=== PATIENT | female | born 1940 | race Caucasian/White ===

== ENCOUNTER → 2016-06-26 | Outpatient (CLI) | payer MEDICARE, OTHER ==
[2016-06-26 12:19] LABS: ALBUMIN 3.7 g/dL (3.5-5.0); BILIRUBIN,TOTAL 0.9 mg/dL (0.2-1.3); MAGNESIUM 1.9 mg/dL (1.6-2.3); TOTAL PROTEIN 6.7 g/dL (6.3-8.2)
== END ==
LOC: OD 11:15
PROVIDERS: ATTEND Internal Medicine Cardiovascular Disease
DX: Z79.899 Other long term (current) drug therapy (principal)
CPT/HCPCS: 36415; 80076; 83735; 84443

== ENCOUNTER → 2016-06-26 | Outpatient (CLI) | payer MEDICARE, OTHER ==
--- NOTE | 2016-06-26 19:45 | XCELERA REPORT ---
[address] [address] Transthoracic Echocardiogram Report Name: WOODROW HAYS Age: 76 yrs Gender: Female : 1940 Patient Status: Outpatient Patient Location: Study Date: 06/26/2016 01:59 PM Height: 65 in Weight: 132 lb BSA: 1.7 m2 Reason For Study: HTN Ordering Physician: RAMÍREZ IRELAND Performed By: Monique Post Interpretation Summary Mild calcific with peak gradient 17 mm Hg with mild AR with no LV enlargement. MAC is moderate, no MS, no MVP, mild MR and mild LA enlargement. LV is hypokinetic in inferoseptal wall, no LVH and LVEF 62% with no LV diastolic dysfunction, no other wall motion abn. RH is normal LVEF is 39 mm Hg , mild pulm hypertension. MMode/2D Measurements \T\ Calculations RVDd: 2.5 cm LVIDd: 5.2 cm FS: 32.4 % Ao root diam: IVSd: 0.88 cm LVIDs: 3.5 cm EDV(Teich): 129.6 ml 3.0 cm LVPWd: 0.91 cm ESV(Teich): 51.5 ml Ao root area: EF(Teich): 60.3 % 7.2 cm2 LA dimension: 3.6 cm LVOT diam: LVLd ap4: 7.9 cm SV(MOD-sp4): 69.0 ml 2.2 cm EDV(MOD-sp4): LA A2Cs: 30.8 cm2 LVOT area: 112.0 ml LVLs ap4: 6.4 cm 3.7 cm2 ESV(MOD-sp4): 43.0 ml EF(MOD-sp4): 61.6 % LA A4Cs: LA length: 6.8 cm LA Vol Index (BP): LA Volume: 89.2 ml 23.3 cm2 53.8 ml/m2 Doppler Measurements \T\ Calculations MV E max karla: MV P1/2t max karla: Ao V2 max: AI max karla: 103.0 cm/sec 102.6 cm/sec 204.3 cm/sec 361.1 cm/sec MV A max karla: MV P1/2t: 53.2 msec Ao max PG: AI max P.1 cm/sec MVA(P1/2t): 4.1 cm2 16.7 mmHg 52.1 mmHg MV E/A: 1.2 MV dec slope: ABIOLA(V,D): 2.0 cm2AI dec slope: 182.6 cm/sec2 564.8 cm/sec2 AI P1/2t: 579.1 msec LV V1 max PG: PA V2 max: TR max karla: 4.6 mmHg 74.4 cm/sec 289.9 cm/sec LV V1 max: PA max P.2 mmHg TR max P.6 cm/sec 33.6 mmHg Left Ventricle The left ventricle is normal in size. There is normal left ventricular wall thickness. The left ventricular ejection fraction is normal. LV EF is 62%. Doppler measurements suggest normal left ventricular diastolic function. There is inferoseptal wall moderate hypokinesis. There is no thrombus. Right Ventricle The right ventricle is normal size. Atria The right atrium is normal in size. The left atrium is mildly dilated. There is no Doppler evidence for an interatrial shunt. Mitral Valve There is mild to moderate mitral annular calcification. There is no evidence of mitral valve prolapse. There is no mitral valve stenosis. There is a mild amount of mitral regurgitation. Aortic Valve The aortic valve opens well. The aortic valve is sclerotic and shows some degree of functional abnormality. The aortic valve is trileaflet. There is no aortic valvular vegetation. There is mild aortic stenosis. There is a peak gradient of 17 mm of Hg. There is an eccentric jet of aortic insufficiency directed against the anterior mitral leaflet. There is a mild amount of aortic regurgitation. PHT 577 ms. Tricuspid Valve The tricuspid is normal in structure and function. There is no tricuspid valve prolapse. There is no tricuspid stenosis. There is a moderate amount of tricuspid regurgitation. Right ventricular systolic pressure is estimated to be elevated at 30-40mmHg. Pulmonic Valve The pulmonic valve is not well visualized. There is no pulmonic valvular regurgitation. Great Vessels The aortic root is normal size. Effusions There is no pericardial effusion. I WMSI = 1.19 % Normal = 81 Segments Size X - Cannot 1 - Normal 2 - 3 - Akinetic4 - 1-2 small Interpret Hypokinetic Dyskinetic 3-5 moderate 5 - 6-14 large Aneurysmal 15-16 diffuse : RAMÍREZ IRELAND > Ramírez [place]
== END ==
LOC: SP 12:37
PROVIDERS: ATTEND Internal Medicine Cardiovascular Disease
DX: R94.31 Abnormal electrocardiogram [ECG] [EKG] (principal)
CPT/HCPCS: 93306

== ENCOUNTER 2016-07-23 16:11 | Emergency (ER) | payer MEDICARE, OTHER ==
[2016-07-23] MEDS ORDERED: PREDNISONE 20 MG TABLET PO ONE (16:20)
--- NOTE | 2016-07-23 16:21 | ER Document Report ---
ED Medical Screen (RME) - General Stated Complaint: FLU LIKE SYMPTOMS Notes: Patient presents to the emergency department sent over by her primary care provider for febrile illness shortness of breath pulse ox between 90 and 94%. Had a breathing tx pto, 1 gm rocephin. Decreased breath sounds right side TRAVEL OUTSIDE OF THE [place] IN LAST 30 DAYS: No - Related Data Allergies/Adverse Reactions: No Known Allergies Allergy (Verified 07/23/16 16:18) Past Medical History - Past Medical History Cardiac Medical History: Reports: Hx Coronary Artery Disease, Hx Heart Attack, Hx Hypercholesterolemia, Hx Hypertension Pulmonary Medical History: Denies: Hx Asthma, Hx Bronchitis, Hx COPD, Hx Pneumonia Neurological Medical History: Denies: Hx Cerebrovascular Accident, Hx Seizures Endocrine Medical History: Reports: Hx Diabetes Mellitus Type 2 Renal/ Medical History: Reports: Hx Hemodialysis, Hx Renal Insufficiency Musculoskeltal Medical History: Reports Hx Arthritis - GENERALIZED Past Surgical History: Reports: Hx Abdominal Surgery - infection bowel/ reversed colostomy-2004, Hx Bowel Surgery - colon ruptured-2002, Hx Cardiac Catheterization - 1992, Hx Cardiac Surgery - collapsed artery-1992, Hx Cholecystectomy, Hx Gynecologic Surgery, Hx Hysterectomy, Hx Kidney (Renal Surgery) - cystectomy-2002, Hx Orthopedic Surgery - total left hip-2000, Hx Vascular Surgery - Immunizations Hx Diphtheria, Pertussis, Tetanus Vaccination: Yes Physical Exam - Vital signs Vitals: Temp Pulse Resp BP Pulse Ox 99.4 F 72 18 131/42 H 94 07/23/16 16:16 07/23/16 16:16 07/23/16 16:16 07/23/16 16:16 07/23/16 16:16 Course - Vital Signs Vital signs: Temp Pulse Resp BP Pulse Ox 99.4 F 72 18 131/42 H 94 07/23/16 16:16 07/23/16 16:16 07/23/16 16:16 07/23/16 16:16 07/23/16 16:16
[2016-07-23 16:35] LABS: ABSOLUTE LYMPHOCYTES (AUTO) 0.5 10^3/uL (0.5-4.7); ABSOLUTE MONOCYTES (AUTO) 0.6 10^3/uL (0.1-1.4); ABSOLUTE NEUT (AUTO) 2.8 10^3/uL (1.7-8.2); BASOPHILS % (AUTO) 1.2 % (0-2); EOSINOPHILS % (AUTO) 0.3 % (0-6); HEMATOCRIT 28.7 % (36.0-47.0); HEMOGLOBIN 9.6 g/dL (12.0-15.5); HGB HCT DIFFERENCE 0.1; LYMPHOCYTES % (AUTO) 13.5 % (13-45); MEAN CORPUSCULAR HEMOGLOBIN 33.4 pg (27.0-33.4); MEAN CORPUSCULAR HGB CONC 33.6 g/dL (32.0-36.0); MEAN CORPUSCULAR VOLUME 100 fl (80-97); RED BLOOD COUNT 2.88 10^6/uL (3.72-5.28); RED CELL DISTRIBUTION WIDTH 14.6 % (11.5-14.0)
[2016-07-23 16:52] LABS: ALANINE AMINOTRANSFERASE 24 U/L (9-52); ALBUMIN 3.7 g/dL (3.5-5.0); ALKALINE PHOSPHATASE 85 U/L (38-126); ANION GAP 13 (5-19); ASPARTATE AMINO TRANSFERASE 41 U/L (14-36); BILIRUBIN,DIRECT 0.7 mg/dL (0.0-0.4); BILIRUBIN,TOTAL 0.8 mg/dL (0.2-1.3); BLOOD UREA NITROGEN 12 mg/dL (7-20); CALCIUM 8.6 mg/dL (8.4-10.2); CARBON DIOXIDE 29 mmol/L (22-30); CHLORIDE 98 mmol/L (98-107); CREATININE RESULT 2.36 mg/dL (0.52-1.25); GLUCOSE 85 mg/dL (75-110); POTASSIUM 3.1 mmol/L (3.6-5.0); SODIUM 139.5 mmol/L (137-145); TOTAL PROTEIN 6.4 g/dL (6.3-8.2)
--- NOTE | 2016-07-23 19:34 | ER Document Report ---
ED General - General Chief Complaint: Breathing Difficulty Stated Complaint: FLU LIKE SYMPTOMS Notes: Patient is a 76-year-old female who presents from her doctor's office with concerns of fever, cough, and mild hypoxemia. Patient did receive albuterol nebulizers prior to arrival with no significant change in her symptoms. At time of my assessment patient states that she feels "fine" and denies any complaints at this point beyond cough. States she does not feel significantly short of breath. Denies any chest pain. She has not had a recorded fever greater than 100.4F at home. States that she's had similar symptoms in the past with bronchitis and pneumonia. She is unsure if she's had sick contacts. Nothing improves or worsens her symptoms. TRAVEL OUTSIDE OF THE [place] IN LAST 30 DAYS: No - Related Data Allergies/Adverse Reactions: No Known Allergies Allergy (Verified 07/23/16 16:18) Past Medical History - General Information source: Patient - Social History Smoking Status: Never Smoker Chew tobacco use (# tins/day): No Frequency of alcohol use: None Drug Abuse: None Lives with: Family Family History: Reviewed & Not Pertinent Patient has suicidal ideation: No Patient has homicidal ideation: No - Past Medical History Cardiac Medical History: Reports: Hx Coronary Artery Disease, Hx Heart Attack, Hx Hypercholesterolemia, Hx Hypertension Pulmonary Medical History: Denies: Hx Asthma, Hx Bronchitis, Hx COPD, Hx Pneumonia Neurological Medical History: Denies: Hx Cerebrovascular Accident, Hx Seizures Endocrine Medical History: Reports: Hx Diabetes Mellitus Type 2 Renal/ Medical History: Reports: Hx Hemodialysis, Hx Renal Insufficiency. Denies: Hx Peritoneal Dialysis Musculoskeltal Medical History: Reports Hx Arthritis - GENERALIZED Past Surgical History: Reports: Hx Abdominal Surgery - infection bowel/ reversed colostomy-2004, Hx Bowel Surgery - colon ruptured-2002, Hx Cardiac Catheterization - 1992, Hx Cardiac Surgery - collapsed artery-1992, Hx Cholecystectomy, Hx Gynecologic Surgery, Hx Hysterectomy, Hx Kidney (Renal Surgery) - cystectomy-2002, Hx Orthopedic Surgery - total left hip-2000, Hx Vascular Surgery - Immunizations Hx Diphtheria, Pertussis, Tetanus Vaccination: Yes Hx Pneumococcal Vaccination: 04/27/08 Review of Systems - Review of Systems Notes: Constitutional: Positive for fever. HENT: Negative for sore throat. Eyes: Negative for visual changes. Cardiovascular: Negative for chest pain. Respiratory: Also for cough Gastrointestinal: Negative for abdominal pain, vomiting or diarrhea. Genitourinary: Negative for dysuria. Musculoskeletal: Negative for back pain. Skin: Negative for rash. Neurological: Negative for headaches, weakness or numbness. 10 point ROS negative except as marked above and in HPI. Physical Exam - Vital signs Vitals: Temp Pulse Resp BP Pulse Ox 99.4 F 72 18 131/42 H 94 07/23/16 16:16 07/23/16 16:16 07/23/16 16:16 07/23/16 16:16 07/23/16 16:16 Interpretation: Normal Notes: PHYSICAL EXAMINATION: GENERAL: Well-appearing, well-nourished and in no acute distress. HEAD: Atraumatic, normocephalic. EYES: Pupils equal round and reactive to light, extraocular movements intact, sclera anicteric, conjunctiva are normal. ENT: nares patent, oropharynx clear without exudates. Moist mucous membranes. NECK: Normal range of motion, supple without lymphadenopathy LUNGS: Diminished breath sounds at the right base. No wheezing or rales HEART: Regular rate and rhythm, 3/6 systolic ejection murmur ABDOMEN: Soft, nontender, normoactive bowel sounds. No guarding, no rebound. No masses appreciated. EXTREMITIES: Normal range of motion, no pitting or edema. No cyanosis. NEUROLOGICAL: No focal neurological deficits. Moves all extremities spontaneously and on command. PSYCH: Normal mood, normal affect. SKIN: Warm, Dry, normal turgor, no rashes or lesions noted. Course - Re-evaluation Re-evalutation: 07/23/16 19:32 Patient presents with clinical symptoms and exam that is most consistent with likely right lower lobe pneumonia that is not yet visualized on chest x-ray. She does have diminished breath sounds on right versus left. Proximal and saturations here are 95-96% and she is not tachypneic or in any distress. She is afebrile. No tachycardia. Renal function is at her baseline. She does have baseline anemia. No significant leukocytosis. Will ambulate the patient on pulse ox and she tolerates this well I believe she is an appropriate candidate for outpatient management. Her CURB-65 score is 1, placing her in the low risk category and appropriate for outpatient treatment. 07/23/16 20:12 Patient is ambulatory without difficulty. 97% on ambulation with the lowest pulse ox at 95%. Highest heart rate during ambulation was 73 bpm. Patient states that she had no discomfort, chest pain, or difficulty breathing during this trial of ambulation. Will start empirically on levofloxacin and I have asked that the patient follow-up with her primary care doctor in the next 1-2 days.At this time will discharge with return precautions and follow-up recommendations. Verbal discharge instructions given a the bedside and opportunity for questions given. Medication warnings reviewed. Patient is in agreement with this plan and has verbalized understanding of return precautions and the need for primary care follow-up in the next 24-72 hours. - Vital Signs Vital signs: Temp Pulse Resp BP Pulse Ox 99.4 F 72 13 135/80 H 94 07/23/16 16:16 07/23/16 16:16 07/23/16 20:01 07/23/16 20:01 07/23/16 20:01 - Laboratory Result Diagrams: 07/23/16 16:25 07/23/16 16:25 Laboratory results interpreted by me: 07/23/16 07/23/16 16:25 16:25 RBC 2.88 L Hgb 9.6 L Hct 28.7 L MCV 100 H RDW 14.6 H Monocytes % 16.0 H Potassium 3.1 L Creatinine 2.36 H Est GFR ( Amer) 24 L Est GFR (Non-Af Amer) 20 L Direct Bilirubin 0.7 H AST 41 H - Diagnostic Test Radiology reviewed: Image reviewed, Reports reviewed Radiology results interpreted by me: 07/24/16 04:16 Chest x-ray: No acute infiltrate Discharge - Discharge Clinical Impression: Pneumonia Qualifiers: Pneumonia type: due to unspecified organism Laterality: right Lung location: lower lobe of lung Qualified Code(s): J18.1 - Lobar pneumonia, unspecified organism Condition: Good Disposition: HOME, SELF-CARE Additional Instructions: You have been diagnosed with a pneumonia. It is very important that you take all of your antibiotics until they are gone even if you are feeling better. Please return to the emergency department immediately if you began having worsening shortness of breath, become confused, have worsening pain, pass out, have persistent vomiting that prevents you from being able to drink fluids for more than 12 hours, or have any other symptoms that are worrisome to you. Please follow-up with your primary care doctor in the next 1-2 days. Prescriptions: Levofloxacin [Levaquin 750 mg Tablet] 750 mg PO ASDIR #4 tablet Referrals: NICK THOMAS MD [Primary Care Provider] - Follow up as needed
[2016-07-23] MEDS ORDERED: LEVOFLOXACIN 750 MG TABLET PO ONE (20:14)
[2016-07-23 20:26] VITALS: BP 135/80
== END 2016-07-23 20:42 | disposition home or self-care (01) ==
LOC: ER 16:11
DX: J18.1 Lobar pneumonia, unspecified organism (principal); R05 Cough; I25.10 Atherosclerotic heart disease of native coronary artery without angina pectoris; I25.2 Old myocardial infarction; I10 Essential (primary) hypertension; E11.9 Type 2 diabetes mellitus without complications; D64.9 Anemia, unspecified
CPT/HCPCS: 99285; 36415; 85025; 80053; 71020; A9270 ×2; J7512

== ENCOUNTER 2016-07-26 12:40 | Emergency (ER) | payer MEDICARE, OTHER ==
[2016-07-26] MEDS ORDERED: NORMAL SALINE 1000 ML 500 ML IV ONE (14:02)
--- NOTE | 2016-07-26 14:25 | ER Document Report ---
ED General - General Chief Complaint: Breathing Difficulty Stated Complaint: DIFFICULTY BREATHING Information source: Patient Notes: 76-year-old female with past medical history as recorded who presents today with the onset around a week ago of some runny nose, congestion, cough, and was seen and evaluated in the emergency department here around 2 days ago. X-ray of the chest did not show an obvious pneumonia but the patient was started on Levaquin. Patient is not on oxygen at home but supposedly the primary care physician has suggested setting this up in this coming week. Patient presents because she said 2 episodes of vomiting in the last 24 hours for 2 episodes of diarrhea. No blood noted. Patient denies any chest pain, calf pain, leg swelling. She states some intermittent low-grade fevers. She denies any abdominal flank pain. TRAVEL OUTSIDE OF THE [place] IN LAST 30 DAYS: No - HPI Onset: Other - See above Onset/Duration: Gradual Quality of pain: No pain Severity: Mild Pain Level: Denies Associated symptoms: Other - See above Exacerbated by: Denies Relieved by: Denies Similar symptoms previously: Yes Recently seen / treated by doctor: Yes - Related Data Allergies/Adverse Reactions: No Known Allergies Allergy (Verified 07/26/16 12:44) Past Medical History - General Information source: Patient - Social History Smoking Status: Unknown if Ever Smoked Cigarette use (# per day): No Chew tobacco use (# tins/day): No Smoking Education Provided: No Frequency of alcohol use: None Family History: Reviewed & Not Pertinent Patient has suicidal ideation: No Patient has homicidal ideation: No - Past Medical History Cardiac Medical History: Reports: Hx Coronary Artery Disease, Hx Heart Attack, Hx Hypercholesterolemia, Hx Hypertension Pulmonary Medical History: Denies: Hx Asthma, Hx Bronchitis, Hx COPD, Hx Pneumonia Neurological Medical History: Denies: Hx Cerebrovascular Accident, Hx Seizures Endocrine Medical History: Reports: Hx Diabetes Mellitus Type 2 Renal/ Medical History: Reports: Hx Hemodialysis, Hx Renal Insufficiency. Denies: Hx Peritoneal Dialysis Musculoskeltal Medical History: Reports Hx Arthritis - GENERALIZED Past Surgical History: Reports: Hx Abdominal Surgery - infection bowel/ reversed colostomy-2004, Hx Bowel Surgery - colon ruptured-2002, Hx Cardiac Catheterization - 1992, Hx Cardiac Surgery - collapsed artery-1992, Hx Cholecystectomy, Hx Gynecologic Surgery, Hx Hysterectomy, Hx Kidney (Renal Surgery) - cystectomy-2002, Hx Orthopedic Surgery - total left hip-2000, Hx Vascular Surgery - Immunizations Hx Diphtheria, Pertussis, Tetanus Vaccination: Yes Hx Pneumococcal Vaccination: 04/27/08 Review of Systems - Review of Systems Constitutional: denies: Fever EENT: Nose congestion, Nose discharge. denies: Eye discharge Cardiovascular: denies: Chest pain, Palpitations Respiratory: Cough, Short of breath Gastrointestinal: denies: Vomiting Genitourinary: denies: Dysuria Musculoskeletal: denies: Leg swelling Skin: Other - no hives. denies: Rash Neurological/Psychological: Other - no slurred speech -: Yes All other systems reviewed and negative Physical Exam - Vital signs Vitals: Temp Pulse Resp BP Pulse Ox 97.9 F 60 18 165/38 H 95 07/26/16 12:46 07/26/16 12:46 07/26/16 12:46 07/26/16 12:46 07/26/16 12:46 Notes: Reviewed vital signs and nursing note as charted by RN. CONSTITUTIONAL: Alert and oriented and responds appropriately to questions. Well -appearing; well-nourished HEAD: Normocephalic; atraumatic EYES: PERRL ENT: Normal nose; bilateral nonpurulent nasal rhinorrhea NECK: Supple without meningismus; non-tender; no cervical lymphadenopathy, no masses CARD: Regular rate and rhythm; no murmurs, no clicks, no rubs, no gallops; symmetric distal pulses RESP: Normal chest excursion without splinting or tachypnea; she has some scattered rhonchi without wheezing. No rales present. ABD/GI: Normal bowel sounds; non-distended; soft, non-tender BACK: The back appears normal and is non-tender to palpation, there is no CVA tenderness EXT: Normal ROM in all joints; non-tender to palpation; no cyanosis, no effusions, no edema SKIN: Normal color for age and race; warm; dry; good turgor; capillary refill < 2 seconds; no acute lesions noted NEURO: Moves all extremities equally; Motor and sensory function intact PSYCH: The patient's mood and manner are appropriate. Grooming and personal hygiene are appropriate. Course - Re-evaluation Re-evalutation: 07/26/16 14:24 Given the history, physical examination, nasal congestion, nonproductive cough, with 2 bouts of nonbloody vomiting and diarrhea over the last 24 hours, I will obtain a repeat x-ray of the chest, basic labs, a 500 mL bolus, and reassess. Patient had her last dialysis session yesterday and completed a full course of dialysis. Patient denies any chest pain and so I believe ACS, PE, dissection to be unlikely. 07/26/16 15:33 Patient still denies any pain. First troponin as recorded. X-ray of the chest shows cardiomegaly. 07/26/16 16:33 BNP is recorded. Patient is satting 99% on 2 L nasal cannula. I believe patient will require admission for further evaluation of this possible congestive heart failure exacerbation/acute bronchitis requiring oxygen therapy. Patient be admitted to the hospitalist service. 07/26/16 16:40 I called and spoke to the hospitalist Dr. Palencia. Given her history of dialysis with the complaints of some hypoxia, he is uncomfortable admitting the patient to this facility as we do not have dialysis at this facility. Patient did complete a full course of dialysis yesterday. Patient does have runny nose , congestion, and a cough for one week. I've expressed that I am more concerned about possibly acute bronchitis causing this hypoxia. He states he does not believe that that the etiology is acute bronchitis as this does not cause hypoxia in his opinion. He is concerned about the elevated BNP despite the patient being a dialysis patient. I have called an outside Center for transfer. - Vital Signs Vital signs: Temp Pulse Resp BP Pulse Ox 97.9 F 60 14 162/48 H 100 07/26/16 12:46 07/26/16 12:46 07/26/16 16:00 07/26/16 14:47 07/26/16 16:00 - Laboratory Result Diagrams: 07/26/16 14:57 07/26/16 14:57 Laboratory results interpreted by me: 07/26/16 07/26/16 07/26/16 14:57 14:57 14:57 RBC 3.23 L Hgb 10.8 L Hct 31.9 L MCV 99 H RDW 14.2 H Monocytes % 13.2 H Potassium 3.3 L Chloride 95 L BUN 29 H Creatinine 3.55 H Est GFR ( Amer) 15 L Est GFR (Non-Af Amer) 12 L Glucose 69 L NT-Pro-B Natriuret Pep [id number] H Discharge - Discharge Clinical Impression: Nasal congestion, Cough, Hypoxia Condition: Fair Disposition: [facility] Referrals: NICK THOMAS MD [Primary Care Provider] - Follow up as needed
[2016-07-26 15:29] LABS: ABSOLUTE LYMPHOCYTES (AUTO) 0.8 10^3/uL (0.5-4.7); ABSOLUTE MONOCYTES (AUTO) 0.7 10^3/uL (0.1-1.4); ABSOLUTE NEUT (AUTO) 3.6 10^3/uL (1.7-8.2); BASOPHILS % (AUTO) 0.7 % (0-2); EOSINOPHILS % (AUTO) 0.7 % (0-6); HEMATOCRIT 31.9 % (36.0-47.0); HEMOGLOBIN 10.8 g/dL (12.0-15.5); HGB HCT DIFFERENCE 0.5; LYMPHOCYTES % (AUTO) 15.8 % (13-45); MEAN CORPUSCULAR HEMOGLOBIN 33.3 pg (27.0-33.4); MEAN CORPUSCULAR HGB CONC 33.7 g/dL (32.0-36.0); MEAN CORPUSCULAR VOLUME 99 fl (80-97); MONOCYTES % (AUTO) 13.2 % (3-13); RED BLOOD COUNT 3.23 10^6/uL (3.72-5.28); RED CELL DISTRIBUTION WIDTH 14.2 % (11.5-14.0); SEGMENTED NEUTROPHILS % (AUTO) 69.6 % (42-78); WHITE BLOOD COUNT 5.2 10^3/uL (4.0-10.5)
[2016-07-26 15:39] LABS: ANION GAP 13 (5-19); BLOOD UREA NITROGEN 29 mg/dL (7-20); CALCIUM 9.4 mg/dL (8.4-10.2); CARBON DIOXIDE 30 mmol/L (22-30); CHLORIDE 95 mmol/L (98-107); CREATININE RESULT 3.55 mg/dL (0.52-1.25); GLUCOSE 69 mg/dL (75-110); POTASSIUM 3.3 mmol/L (3.6-5.0); SODIUM 138.3 mmol/L (137-145)
[2016-07-26 15:59] LABS: TROPONIN I 0.047 ng/mL
[2016-07-26] MEDS ORDERED: IPRATROPIUM/ALBUTEROL 0.5-2.5 MG/3 ML AMPUL NEB SCH (16:45)
[2016-07-26] MEDS ORDERED: FUROSEMIDE INJ/PF 20 MG/2 ML SDV IV ONE (17:03)
[2016-07-26] MEDS ORDERED: OXYCODONE-ACETAMINOPHEN 5-325 MG TABLET PO ONE (18:51)
[2016-07-26 20:52] VITALS: BP 134/50
== END 2016-07-26 19:50 | disposition short-term general hospital (02) ==
LOC: ER 12:40
DX: R09.02 Hypoxemia (principal); I51.7 Cardiomegaly; R09.81 Nasal congestion; R05 Cough; R19.7 Diarrhea, unspecified; R50.9 Fever, unspecified; I25.10 Atherosclerotic heart disease of native coronary artery without angina pectoris; I25.2 Old myocardial infarction; I10 Essential (primary) hypertension; N28.9 Disorder of kidney and ureter, unspecified; Z99.2 Dependence on renal dialysis; E11.9 Type 2 diabetes mellitus without complications; R06.02 Shortness of breath; R11.10 Vomiting, unspecified
CPT/HCPCS: 94640; 99285; 96361; 96374; 36415; 87040; 85025; 80048; 84484; 87804; 83880; 71020; J1940; A9270 ×2; J7030; J7620

== ENCOUNTER 2016-08-31 06:40 | Emergency (ER) | payer MEDICARE, OTHER ==
--- NOTE | 2016-08-31 08:23 | ER Document Report ---
ED General - General Chief Complaint: Fall Injury Stated Complaint: FALL,HEAD INJURY Mode of Arrival: Medic Information source: Patient, Relative Notes: 76-year-old female presents after a fall striking head. Patient notes she bent over to feed her cat and fell. Patient denies any fevers or chills denies any neurological symptoms. Patient is a dialysis receive dialysis on Thursday. Tetanus is up-to-date TRAVEL OUTSIDE OF THE [place] IN LAST 30 DAYS: No - HPI Onset: Just prior to arrival Onset/Duration: Sudden Quality of pain: No pain Severity: Mild Pain Level: Denies Associated symptoms: Other Exacerbated by: Denies Relieved by: Denies Similar symptoms previously: No Recently seen / treated by doctor: No - Related Data Allergies/Adverse Reactions: No Known Allergies Allergy (Verified 08/31/16 06:46) Past Medical History - Social History Smoking Status: Never Smoker Cigarette use (# per day): No Chew tobacco use (# tins/day): No Smoking Education Provided: No Family History: Reviewed & Not Pertinent - Past Medical History Cardiac Medical History: Reports: Hx Coronary Artery Disease, Hx Heart Attack, Hx Hypercholesterolemia, Hx Hypertension Pulmonary Medical History: Denies: Hx Asthma, Hx Bronchitis, Hx COPD, Hx Pneumonia Neurological Medical History: Denies: Hx Cerebrovascular Accident, Hx Seizures Endocrine Medical History: Reports: Hx Diabetes Mellitus Type 2 Renal/ Medical History: Reports: Hx Hemodialysis, Hx Renal Insufficiency. Denies: Hx Peritoneal Dialysis - hemo Musculoskeltal Medical History: Reports Hx Arthritis - GENERALIZED Past Surgical History: Reports: Hx Abdominal Surgery - infection bowel/ reversed colostomy-2004, Hx Bowel Surgery - colon ruptured-2002, Hx Cardiac Catheterization - 1992, Hx Cardiac Surgery - collapsed artery-1992, Hx Cholecystectomy, Hx Gynecologic Surgery, Hx Hysterectomy, Hx Kidney (Renal Surgery) - cystectomy-2002, Hx Orthopedic Surgery - total left hip-2000, Hx Vascular Surgery - Immunizations Hx Diphtheria, Pertussis, Tetanus Vaccination: Yes Hx Pneumococcal Vaccination: 04/27/08 Review of Systems - Review of Systems Notes: REVIEW OF SYSTEMS: CONSTITUTIONAL : Denies fever, chills, or sweats. Denies recent illness. EENT: Denies eye, ear, throat, or mouth pain or symptoms. Denies nasal or sinus congestion or discharge. Denies throat, tongue, or mouth swelling or difficulty swallowing. CARDIOVASCULAR: Denies chest pain. Denies palpitations or racing or irregular heart beat. Denies ankle edema. RESPIRATORY: Denies cough, cold, or chest congestion. Denies shortness of breath, difficulty breathing, or wheezing. GASTROINTESTINAL: Denies abdominal pain or distention. Denies nausea, vomiting , or diarrhea. Denies blood in vomitus, stools, or per rectum. Denies black, tarry stools. Denies constipation. GENITOURINARY: Denies difficulty urinating, painful urination, burning, frequency, blood in urine, or discharge. FEMALE GENITOURINARY: Denies vaginal bleeding, heavy or abnormal periods, irregular periods. Denies vaginal discharge or odor. MUSCULOSKELETAL: Denies back or neck pain or stiffness. Denies joint pain or swelling. SKIN: Admits to head injury with bleed HEMATOLOGIC : Denies easy bruising or bleeding. LYMPHATIC: Denies swollen, enlarged glands. NEUROLOGICAL: Denies confusion or altered mental status. Denies passing out or loss of consciousness. Denies dizziness or lightheadedness. Denies headache. Denies weakness or paralysis or loss of use of either side. Denies problems with gait or speech. Denies sensory loss, numbness, or tingling. Denies seizures. PSYCHIATRIC: Denies anxiety or stress. Denies depression, suicidal ideation, or homicidal ideation. ALL OTHER SYSTEMS REVIEWED AND NEGATIVE. Dictation was performed using [employer] voice recognition software PHYSICAL EXAMINATION: GENERAL: Well-appearing, well-nourished and in no acute distress. HEAD: Small hematoma in the right occipital region measuring 0.5 cm with small venous bleed EYES: Pupils equal round and reactive to light, extraocular movements intact, conjunctiva are normal. ENT: Nares patent, oropharynx clear without exudates. Moist mucous membranes. NECK: Normal range of motion, supple without lymphadenopathy LUNGS: Breath sounds clear to auscultation bilaterally and equal. No wheezes rales or rhonchi. HEART: Regular rate and rhythm without murmurs ABDOMEN: Soft, nontender, nondistended abdomen. No guarding, no rebound. No masses appreciated. Female : deferred Musculoskeletal: Normal range of motion, no pitting or edema. No cyanosis. No cervical tenderness NEUROLOGICAL: Cranial nerves grossly intact. Normal speech, normal gait. Normal sensory, motor exams PSYCH: Normal mood, normal affect. SKIN: Small laceration 0.5cm, dialysis access right antecubital Physical Exam - Vital signs Vitals: Temp Pulse Resp BP Pulse Ox 97.4 F 48 L 18 159/41 H 97 08/31/16 06:46 08/31/16 06:46 08/31/16 06:46 08/31/16 06:46 08/31/16 06:46 Course - Re-evaluation Re-evalutation: 08/31/16 08:20 CT head neck noted no acute abnormality except for soft tissue swelling, one staple was placed where a small be was noted which stopped the bleeding. Tetanus is up-to-date patient otherwise looks well and will be taken home with family. Patient is on aspirin 08/31/16 08:21 After performing a Medical Screening Examination, I estimate there is LOW risk for INTRACRANIAL HEMORRHAGE, UNSTABLE SPINE FRACTURE, CENTRAL CORD SYNDROME, CAUDA EQUINA, THORACIC AORTIC DISSECTION, PNEUMOTHORAX, PERFORATED BOWEL, RUPTURED ABDOMINAL AORTIC ANEURYSM, ACUTE TENDON RUPTURE, COMPARTMENT SYNDROME, or OPEN FRACTURE, thus I consider the discharge disposition reasonable. Also, there is no evidence or peritonitis, sepsis, or toxicity. I have reevaluated this patient multiple times and no significant life threatening changes are noted. The patient and I have discussed the diagnosis and risks, and we agree with discharging home to follow-up with their primary doctor with the understanding that symptoms and presentations can change. We also discussed returning to the Emergency Department immediately if new or worsening symptoms occur. We have discussed the symptoms which are most concerning (e.g., bloody stool, fever, changing or worsening pain, vomiting) that necessitate immediate return. - Vital Signs Vital signs: Temp Pulse Resp BP Pulse Ox 97.4 F 48 L 18 159/41 H 97 08/31/16 06:46 08/31/16 06:46 08/31/16 06:46 08/31/16 06:46 08/31/16 06:46 - Diagnostic Test Radiology reviewed: Image reviewed, Reports reviewed - No acute abnormality Procedures - Laceration/Wound Repair Right Posterior Head Time completed: 08:20 Wound length (cm): 0.5 Wound's Depth, Shape: Superficial Wound explored: Clean Irrigated w/ Saline (mLs): 1,000 Wound Debrided: Minimal Wound Repaired With: [place] Number of Sutures: 1 Post-procedure wound care: Sterile dressing applied Post-procedure NV exam normal: Yes Complications: No Discharge - Discharge Clinical Impression: Head injury due to trauma Qualifiers: Encounter type: initial encounter Qualified Code(s): S09.90XA - Unspecified injury of head, initial encounter Fall Qualifiers: Encounter type: initial encounter Qualified Code(s): W19.XXXA - Unspecified fall, initial encounter Condition: Stable Disposition: HOME, SELF-CARE Instructions: Head Injury Precautions ([facility]) Referrals: MARISOL IRELAND MD [Primary Care Provider] - Follow up tomorrow
[2016-08-31 08:46] VITALS: BP 149/41
== END 2016-08-31 08:38 | disposition home or self-care (01) ==
LOC: ER 06:40
PROC: 0HQ0XZZ Repair Scalp Skin, External Approach (ICD-10-PCS; principal; 2016-08-31)
DX: S01.01XA Laceration without foreign body of scalp, initial encounter (principal); W18.39XA Other fall on same level, initial encounter; Y93.K9 Activity, other involving animal care; Y92.009 Unspecified place in unspecified non-institutional (private) residence as the place of occurrence of the external cause; N28.9 Disorder of kidney and ureter, unspecified; Z99.2 Dependence on renal dialysis; I25.10 Atherosclerotic heart disease of native coronary artery without angina pectoris; I25.2 Old myocardial infarction; I10 Essential (primary) hypertension; E11.9 Type 2 diabetes mellitus without complications
CPT/HCPCS: 70450; 72125; 99284

== ENCOUNTER 2016-08-31 13:19 | Emergency (ER) | payer MEDICARE, OTHER ==
--- NOTE | 2016-08-31 14:39 | ER Document Report ---
ED Medical Screen (RME) - General Chief Complaint: Dizziness Stated Complaint: RECHECK HEAD WOUND/BLEEDING Time seen by provider: 14:36 Mode of Arrival: Wheelchair Information source: Patient Notes: This is a 76-year-old female who presents to the emergency room with bleeding from a head wound. The patient was seen early this morning received 1 suture to scalp laceration. The head CT and cervical spine CT showed no acute injury. Patient denies any change in mental status and denies any pain. The family is concerned because of the bandages are been bleeding. TRAVEL OUTSIDE OF THE [place] IN LAST 30 DAYS: No - HPI Onset: Just prior to arrival Onset/Duration: Gradual Quality of pain: No pain Severity: None Pain Level: Denies Associated Symptoms: None Exacerbated by: Denies Relieved by: Denies Similar symptoms previously: No Recently seen / treated by doctor: Yes - Related Data Smoking: Non-smoker Frequency of alcohol use: None Drug Abuse: None Allergies/Adverse Reactions: No Known Allergies Allergy (Verified 08/31/16 13:35) Past Medical History - General Information source: Patient - Social History Cigarette use (# per day): No Chew tobacco use (# tins/day): No Frequency of alcohol use: None Drug Abuse: None Lives with: Family Family history: None - Past Medical History Cardiac Medical History: Reports: Hx Coronary Artery Disease, Hx Heart Attack, Hx Hypercholesterolemia, Hx Hypertension Pulmonary Medical History: Denies: Hx Asthma, Hx Bronchitis, Hx COPD, Hx Pneumonia Neurological Medical History: Denies: Hx Cerebrovascular Accident, Hx Seizures Endocrine Medical History: Reports: Hx Diabetes Mellitus Type 2 Renal/ Medical History: Reports: Hx Hemodialysis, Hx Renal Insufficiency. Denies: Hx Peritoneal Dialysis Musculoskeltal Medical History: Reports Hx Arthritis - GENERALIZED Past Surgical History: Reports: Hx Abdominal Surgery - infection bowel/ reversed colostomy-2004, Hx Bowel Surgery - colon ruptured-2002, Hx Cardiac Catheterization - 1992, Hx Cardiac Surgery - collapsed artery-1992, Hx Cholecystectomy, Hx Gynecologic Surgery, Hx Hysterectomy, Hx Kidney (Renal Surgery) - cystectomy-2002, Hx Orthopedic Surgery - total left hip-2000, Hx Vascular Surgery - Immunizations Hx Diphtheria, Pertussis, Tetanus Vaccination: Yes Review of Systems - Review of Systems Constitutional: No symptoms reported EENT: See HPI Cardiovascular: No symptoms reported Respiratory: No symptoms reported Gastrointestinal: No symptoms reported Genitourinary: No symptoms reported Female Genitourinary: No symptoms reported Musculoskeletal: No symptoms reported Skin: See HPI Hematologic/Lymphatic: No symptoms reported Neurological/Psychological: See HPI Physical Exam - Vital signs Vitals: Temp Pulse Resp BP Pulse Ox 97.6 F 52 L 18 142/40 H 96 08/31/16 13:38 08/31/16 13:38 08/31/16 13:38 08/31/16 13:38 08/31/16 13:38 Notes: Physical exam: GENERAL: 76-year-old female, alert and oriented 3, no acute distress. HEAD: Head wrapped in gauze and [place] EYES: Pupils equal round and reactive to light, extraocular movements intact, sclera anicteric, conjunctiva are normal. ENT: TMs normal, nares patent, oropharynx clear without exudates. Moist mucous membranes. NECK: Normal range of motion, supple LUNGS: Breath sounds clear to auscultation bilaterally and equal. No wheezes rales or rhonchi. HEART: Regular rate and rhythm without murmurs, rubs or gallops. NEUROLOGICAL: Cranial nerves II through XII grossly intact. Normal speech, normal gait. PSYCH: Normal mood, normal affect. SKIN: Small lack to the right occipital area. No active bleeding. Course - Re-evaluation Re-evalutation: 08/31/16 14:38 Note: Note was a lot of dried blood with matted hair and the area was difficult to examine. I've methodically cleaned the scalp with soap, warm water and 4 x 4 's and an inspected the whole scalp. The area of bleeding was a small area that had 1 staple in the right suboccipital area. There is no active bleeding. There was no evidence of depressed skull fracture. The rest of the skull was cleaned and there was no other injuries. I reassured the family and redressed the wound. 08/31/16 14:40 08/31/16 14:46 Note: The patient's heart rate is 52 and she is on metoprolol. I discussed this with her and her family. The patient states her heart rate is normally in that zone. I advised her that I don't see the benefit of having the heart rate go lower than this and she should hold her metoprolol for the rest of today. She will be seen again tomorrow in dialysis and then she has an appointment with her race steward on Thursday. I've recommended she come back in 24 hours for a wound check. 08/31/16 14:47 - Vital Signs Vital signs: Temp Pulse Resp BP Pulse Ox 97.6 F 50 L 18 132/36 H 100 08/31/16 13:38 08/31/16 14:49 08/31/16 14:49 08/31/16 14:49 08/31/16 14:49 Doctor's Discharge - Discharge Clinical Impression: wound check Condition: Stable Disposition: HOME, SELF-CARE Additional Instructions: Recommendations: The sutures should come out in a week to 10 days as previously advised. Return to the ER in 24 hours for wound check Return to the ER before that if any further concerns for bleeding, headache, persistent vomiting, mental status changes or any concerns of getting worse. I would hold off on the metoprolol for the rest of the day. Follow-up with Dr. Parker as planned on Thursday and follow-up with dialysis tomorrow as planned. Forms: Follow-Up (Wound)
[2016-08-31 14:50] VITALS: BP 132/36
== END 2016-08-31 14:50 | disposition home or self-care (01) ==
LOC: ER 13:19
DX: S01.01XD Laceration without foreign body of scalp, subsequent encounter (principal); W19.XXXD Unspecified fall, subsequent encounter; E11.9 Type 2 diabetes mellitus without complications; I25.10 Atherosclerotic heart disease of native coronary artery without angina pectoris; I25.2 Old myocardial infarction; I10 Essential (primary) hypertension; N28.9 Disorder of kidney and ureter, unspecified; Z99.2 Dependence on renal dialysis; Z79.899 Other long term (current) drug therapy
CPT/HCPCS: 99282

== ENCOUNTER 2016-09-02 11:48 | Emergency (ER) | payer MEDICARE, OTHER ==
--- NOTE | 2016-09-02 12:16 | ER Document Report ---
HPI - HPI Patient complains to provider of: wound recheck Onset: Other Onset/Duration: Sudden Quality of pain: No pain Severity: None Pain Level: Denies Context: Patient seen here Thursday for head injury, staple placed because wound Bleeding. States she is here to have wound rechecked. Denies any problems. Associated Symptoms: None Exacerbated by: Denies Relieved by: Denies Similar symptoms previously: No Recently seen / treated by doctor: Yes - Thursday - ROS ROS below otherwise negative: Yes Systems Reviewed and Negative: Yes All other systems reviewed and negative - CONSTITUTIONAL Constitutional: DENIES: Fever - EENT EENT: DENIES: Sore Throat - NEURO Neurology: DENIES: Headache - CARDIOVASCULAR Cardiovascular: DENIES: Chest pain - RESPIRATORY Respiratory: DENIES: Trouble Breathing - GASTROINTESTINAL Gastrointestinal: DENIES: Abdominal Pain - URINARY Urinary: DENIES: Dysuria - MUSCULOSKELETAL Musculoskeletal: DENIES: Extremity pain - DERM Skin Color: Normal Skin Problems: Laceration - Scalp Past Medical History - General Information source: Patient - Social History Smoking Status: Never Smoker Frequency of alcohol use: None Drug Abuse: None Lives with: Family Family History: Reviewed & Not Pertinent Patient has suicidal ideation: No Patient has homicidal ideation: No - Past Medical History Cardiac Medical History: Reports: Hx Coronary Artery Disease, Hx Heart Attack, Hx Hypercholesterolemia, Hx Hypertension Endocrine Medical History: Reports: Hx Diabetes Mellitus Type 2 Renal/ Medical History: Reports: Hx Hemodialysis, Hx Renal Insufficiency Musculoskeltal Medical History: Reports Hx Arthritis - GENERALIZED Past Surgical History: Reports: Hx Abdominal Surgery - infection bowel/ reversed colostomy-2004, Hx Bowel Surgery - colon ruptured-2002, Hx Cardiac Catheterization - 1992, Hx Cardiac Surgery - collapsed artery-1992, Hx Cholecystectomy, Hx Gynecologic Surgery, Hx Hysterectomy, Hx Kidney (Renal Surgery) - cystectomy-2002, Hx Orthopedic Surgery - total left hip-2000, Hx Vascular Surgery - Immunizations Hx Diphtheria, Pertussis, Tetanus Vaccination: Yes Hx Pneumococcal Vaccination: 04/27/08 Vertical Provider Document - CONSTITUTIONAL Agree With Documented VS: Yes Exam Limitations: No Limitations General Appearance: WD/WN, No Apparent Distress - INFECTION CONTROL TRAVEL OUTSIDE OF THE [place] IN LAST 30 DAYS: No - HEENT HEENT: Normocephalic Notes: Single staple intact to right side of head without signs and symptoms of infection. - RESPIRATORY Respiratory: Breath Sounds Normal, No Respiratory Distress O2 Sat by Pulse Oximetry: 93 - CARDIOVASCULAR Cardiovascular: Regular Rate, Regular Rhythm - MUSCULOSKELETAL/EXTREMETIES Musculoskeletal/Extremeties: IDANIA KAM - NEURO Level of Consciousness: Awake, Alert, Appropriate - DERM Integumentary: Warm, Dry Course - Vital Signs Vital signs: Temp Pulse Resp BP Pulse Ox 97.2 F 78 18 178/48 H 93 09/02/16 11:51 09/02/16 11:51 09/02/16 11:51 09/02/16 11:51 09/02/16 11:51 Discharge - Discharge Clinical Impression: Visit for wound check Laceration of head Qualifiers: Encounter type: subsequent encounter Location of open wound of head: scalp Foreign body presence: without foreign body Qualified Code(s): S01.01XD - Laceration without foreign body of scalp, subsequent encounter Condition: Good Disposition: HOME, SELF-CARE Additional Instructions: Continue to keep clean and dry Site looks good today, no signs and symptoms of infection Return next Thursday or Thursday for staple removal, earlier if there are any problems
[2016-09-02 12:29] VITALS: BP 152/60
== END 2016-09-02 12:29 | disposition home or self-care (01) ==
LOC: ER 11:48
DX: S01.01XD Laceration without foreign body of scalp, subsequent encounter (principal); X58.XXXD Exposure to other specified factors, subsequent encounter

== ENCOUNTER → 2016-09-26 | Outpatient (CLI) | payer MEDICARE, OTHER ==
[2016-09-26 08:18] LABS: HEMATOCRIT 33.5 % (36.0-47.0); HEMOGLOBIN 11.2 g/dL (12.0-15.5); HGB HCT DIFFERENCE 0.1; MEAN CORPUSCULAR HEMOGLOBIN 33.1 pg (27.0-33.4); MEAN CORPUSCULAR HGB CONC 33.5 g/dL (32.0-36.0); MEAN CORPUSCULAR VOLUME 99 fl (80-97); RED BLOOD COUNT 3.38 10^6/uL (3.72-5.28); RED CELL DISTRIBUTION WIDTH 14.9 % (11.5-14.0); WHITE BLOOD COUNT 6.4 10^3/uL (4.0-10.5)
[2016-09-26 08:41] LABS: ALANINE AMINOTRANSFERASE 24 U/L (9-52); ALBUMIN 3.7 g/dL (3.5-5.0); ALKALINE PHOSPHATASE 130 U/L (38-126); ANION GAP 12 (5-19); ASPARTATE AMINO TRANSFERASE 36 U/L (14-36); BILIRUBIN,DIRECT 0.9 mg/dL (0.0-0.4); BLOOD UREA NITROGEN 45 mg/dL (7-20); CALCIUM 9.8 mg/dL (8.4-10.2); CARBON DIOXIDE 29 mmol/L (22-30); CHLORIDE 100 mmol/L (98-107); CHOLESTEROL 139.03 mg/dL (0-200); CREATININE RESULT 4.49 mg/dL (0.52-1.25); Direct HDL 95 mg/dL (>40); GLUCOSE 80 mg/dL (75-110); POTASSIUM 4.6 mmol/L (3.6-5.0); SODIUM 140.7 mmol/L (137-145); TOTAL PROTEIN 7.3 g/dL (6.3-8.2); TRIGLYCERIDES 42 mg/dL (<150)
[2016-09-26 08:54] LABS: DIRECT LDL < 30 mg/dL (<100)
== END ==
LOC: OD 07:17
PROVIDERS: ATTEND Internal Medicine Cardiovascular Disease
DX: R06.02 Shortness of breath (principal); E78.2 Mixed hyperlipidemia; Z79.899 Other long term (current) drug therapy
CPT/HCPCS: 36415; 80048; 80061; 80076; 83880; 84443; 85027

== ENCOUNTER 2017-01-08 20:10 | Emergency (ER) | payer MEDICARE, OTHER ==
--- NOTE | 2017-01-08 22:32 | ER Document Report ---
ED Medical Screen (RME) - General Chief Complaint: Abnormal Lab Results Stated Complaint: IRREGULAR LABS Time Seen by Provider: 01/08/17 22:29 Mode of Arrival: Wheelchair Information source: Patient Notes: Patient is a 76-year-old female who had recent stents placed with cardiac catheterization and had to have multiple blood transfusions at that time for bleeding at the site of insertion per family member who presents to the ER today because Dr. Churchill, who patient sees to get dialysis 3 times a week, ivon her blood yesterday and her hemoglobin apparently is 5.1. Patient denies any bleeding from anywhere that she knows of. She denies any blood in her stool. She was dialyzed yesterday and had some "fluid taken off" today. She states that she just feels a little weak. TRAVEL OUTSIDE OF THE [place] IN LAST 30 DAYS: No - Related Data Allergies/Adverse Reactions: No Known Allergies Allergy (Verified 09/02/16 11:50) Past Medical History - General Information source: Patient - Social History Family history: None - Past Medical History Cardiac Medical History: Reports: Hx Coronary Artery Disease, Hx Heart Attack, Hx Hypercholesterolemia, Hx Hypertension Pulmonary Medical History: Denies: Hx Asthma, Hx Bronchitis, Hx COPD, Hx Pneumonia Neurological Medical History: Denies: Hx Cerebrovascular Accident, Hx Seizures Endocrine Medical History: Reports: Hx Diabetes Mellitus Type 2 Renal/ Medical History: Reports: Hx Hemodialysis, Hx Renal Insufficiency. Denies: Hx Peritoneal Dialysis Musculoskeltal Medical History: Reports Hx Arthritis - GENERALIZED Past Surgical History: Reports: Hx Abdominal Surgery - infection bowel/ reversed colostomy-2004, Hx Bowel Surgery - colon ruptured-2002, Hx Cardiac Catheterization - 1992, Hx Cardiac Surgery - collapsed artery-1992, Hx Cholecystectomy, Hx Gynecologic Surgery, Hx Hysterectomy, Hx Kidney (Renal Surgery) - cystectomy-2002, Hx Orthopedic Surgery - total left hip-2000, Hx Vascular Surgery - Immunizations Hx Diphtheria, Pertussis, Tetanus Vaccination: Yes Review of Systems - Review of Systems Hematologic/Lymphatic: See HPI Physical Exam - Notes Notes: PHYSICAL EXAMINATION: GENERAL: Chronically ill-appearing, but in no acute distress.
[2017-01-08 23:05] LABS: ABSOLUTE BASOPHILS # (AUTO) 0.1 10^3/uL (0.0-0.2); ABSOLUTE EOSINOPHILS # (AUTO) 0.2 10^3/uL (0.0-0.6); ABSOLUTE LYMPHOCYTES (AUTO) 0.9 10^3/uL (0.5-4.7); ABSOLUTE MONOCYTES (AUTO) 0.5 10^3/uL (0.1-1.4); ABSOLUTE NEUT (AUTO) 4.5 10^3/uL (1.7-8.2); BASOPHILS % (AUTO) 1.2 % (0-2); EOSINOPHILS % (AUTO) 3.8 % (0-6); HEMATOCRIT 18.5 % (36.0-47.0); HGB HCT DIFFERENCE 0.4; LYMPHOCYTES % (AUTO) 14.7 % (13-45); MEAN CORPUSCULAR HGB CONC 34.2 g/dL (32.0-36.0); MEAN CORPUSCULAR VOLUME 108 fl (80-97); MONOCYTES % (AUTO) 8.7 % (3-13); RED BLOOD COUNT 1.71 10^6/uL (3.72-5.28); RED CELL DISTRIBUTION WIDTH 23.1 % (11.5-14.0); SEGMENTED NEUTROPHILS % (AUTO) 71.6 % (42-78); WHITE BLOOD COUNT 6.2 10^3/uL (4.0-10.5)
[2017-01-08 23:09] LABS: HEMOGLOBIN 6.3 g/dL (12.0-15.5)
[2017-01-08 23:10] LABS: ALANINE AMINOTRANSFERASE 16 U/L (9-52); ALBUMIN 3.7 g/dL (3.5-5.0); ALKALINE PHOSPHATASE 150 U/L (38-126); ANION GAP 10 (5-19); ASPARTATE AMINO TRANSFERASE 51 U/L (14-36); BILIRUBIN,TOTAL 1.1 mg/dL (0.2-1.3); BLOOD UREA NITROGEN 54 mg/dL (7-20); CALCIUM 9.6 mg/dL (8.4-10.2); CARBON DIOXIDE 26 mmol/L (22-30); CHLORIDE 101 mmol/L (98-107); CREATININE RESULT 3.63 mg/dL (0.52-1.25); GLUCOSE 116 mg/dL (75-110); POTASSIUM 4.2 mmol/L (3.6-5.0); SODIUM 136.7 mmol/L (137-145); TOTAL PROTEIN 6.6 g/dL (6.3-8.2)
[2017-01-08 23:21] LABS: ACANTHOCYTES SLIGHT; ANISOCYTOSIS 3+; OVALOCYTES SLIGHT; POIKILOCYTOSIS 1+; POLYCHROMASIA 1+; SCHISTOCYTES SLIGHT; TEAR DROP CELLS SLIGHT
[2017-01-08 23:22] LABS: TOXIC GRANULATION SLIGHT
[2017-01-08 23:53] LABS: PARTIAL THROMBOPLASTIN TIME 27.5 SEC (23.5-35.8)
[2017-01-09] MEDS ORDERED: NORMAL SALINE 250 ML IV PRN ×3 (00:02→00:10)
--- NOTE | 2017-01-09 00:17 | ER Document Report ---
ED General - General Chief Complaint: Abnormal Lab Results Stated Complaint: IRREGULAR LABS Time Seen by Provider: 01/08/17 22:29 Mode of Arrival: Wheelchair Notes: Patient is a 76-year-old female with a past medical history of dialysis dependent chronic kidney disease, recent cardiac catheterization with stenting and subsequent anemia secondary apparently to a sheath hemorrhage who presents with concerns of anemia. Patient did have routine labs done during dialysis 2 days ago. She was contacted with the results of these laboratories tonight being told that her hemoglobin was 5 and that she needs to report to the emergency department. Patient states that she has felt somewhat fatigued over the last several days but denies any additional acute symptoms. States she did require multiple units of blood transfusion after her catheterization while in [place]. She does note that she has bruising to her right lower extremity which was the site of the cardiac catheterization but at that area has not increased in size and denies any pain to the area. She denies any chest pain, shortness of breath, syncope or lightheadedness. Nothing seems to improve or worsen her generalized fatigue. TRAVEL OUTSIDE OF THE [place] IN LAST 30 DAYS: No - Related Data Allergies/Adverse Reactions: No Known Allergies Allergy (Verified 09/02/16 11:50) Past Medical History - General Information source: Patient - Social History Smoking Status: Never Smoker Frequency of alcohol use: None Drug Abuse: None Lives with: Family Family History: Reviewed & Not Pertinent Patient has suicidal ideation: No Patient has homicidal ideation: No - Past Medical History Cardiac Medical History: Reports: Hx Coronary Artery Disease, Hx Heart Attack, Hx Hypercholesterolemia, Hx Hypertension Pulmonary Medical History: Denies: Hx Asthma, Hx Bronchitis, Hx COPD, Hx Pneumonia Neurological Medical History: Denies: Hx Cerebrovascular Accident, Hx Seizures Endocrine Medical History: Reports: Hx Diabetes Mellitus Type 2 Renal/ Medical History: Reports: Hx Hemodialysis, Hx Renal Insufficiency. Denies: Hx Peritoneal Dialysis Musculoskeltal Medical History: Reports Hx Arthritis - GENERALIZED Past Surgical History: Reports: Hx Abdominal Surgery - infection bowel/ reversed colostomy-2004, Hx Bowel Surgery - colon ruptured-2002, Hx Cardiac Catheterization - 1992, Hx Cardiac Surgery - collapsed artery-1992, Hx Cholecystectomy, Hx Gynecologic Surgery, Hx Hysterectomy, Hx Kidney (Renal Surgery) - cystectomy-2002, Hx Orthopedic Surgery - total left hip-2000, Hx Vascular Surgery - Immunizations Hx Diphtheria, Pertussis, Tetanus Vaccination: Yes Hx Pneumococcal Vaccination: 04/27/08 Review of Systems - Review of Systems Notes: Constitutional: Negative for fever. HENT: Negative for sore throat. Eyes: Negative for visual changes. Cardiovascular: Negative for chest pain. Respiratory: Negative for shortness of breath. Gastrointestinal: Negative for abdominal pain, vomiting or diarrhea. Genitourinary: Negative for dysuria. Musculoskeletal: Negative for back pain. Skin: Negative for rash. Neurological: Negative for headaches, weakness or numbness. 10 point ROS negative except as marked above and in HPI. Physical Exam - Vital signs Vitals: Temp Pulse Resp BP Pulse Ox 98.1 F 93 16 119/38 L 95 01/09/17 02:30 01/09/17 02:30 01/09/17 02:30 01/09/17 02:30 01/09/17 02:30 Interpretation: Normal Notes: PHYSICAL EXAMINATION: GENERAL: Well-appearing, well-nourished and in no acute distress. HEAD: Atraumatic, normocephalic. EYES: Pupils equal round and reactive to light, extraocular movements intact, sclera anicteric, conjunctiva are normal. ENT: nares patent, oropharynx clear without exudates. Moist mucous membranes. NECK: Normal range of motion, supple without lymphadenopathy LUNGS: Breath sounds clear to auscultation bilaterally and equal. No wheezes rales or rhonchi. HEART: Regular rate and rhythm without murmurs ABDOMEN: Soft, nontender, normoactive bowel sounds. No guarding, no rebound. No masses appreciated. EXTREMITIES: Normal range of motion, there is bruising and mild swelling to the right lower extremity more notable to the right proximal lower extremity. There is no tension to the thigh compartments, soft, nonpainful to palpation. NEUROLOGICAL: No focal neurological deficits. Moves all extremities spontaneously and on command. PSYCH: Normal mood, normal affect. SKIN: Warm, Dry, normal turgor, no rashes or lesions noted. Course - Re-evaluation Re-evalutation: 01/09/17 00:15 Patient presents with an abnormally low hemoglobin apparently 5 on Thursday obtained in routine labs at dialysis now 6.3 on labs here. She is otherwise well in appearance, denies any additional complaints. No rectal bleeding. She does have extensive bruising to her right lower extremity from a recent cardiac catheterization and apparently did have a leak from the sheath during that procedure. She did apparently require total 4 units to be administered while she was at [facility] due to this sheath leak. She denies any worsening of that bruising, swelling or pain to the area to suggest ongoing bleeding into her right thigh. The area is nontender, not erythematous, I do not suspect active bleeding into this area. Rectal exam shows a green brown stool no evidence of gross blood or melena. I discussed with her institutional aide Dr. Churchill who is recommended a single unit be transfused here in the emergency department and to use additional units will be crossmatched her transfusion tomorrow during dialysis. - Vital Signs Vital signs: Temp Pulse Resp BP Pulse Ox 98.1 F 93 16 119/38 L 95 01/09/17 02:30 01/09/17 02:30 01/09/17 02:30 01/09/17 02:30 01/09/17 02:30 - Laboratory Result Diagrams: 01/08/17 22:40 01/08/17 22:40 Laboratory results interpreted by me: 01/08/17 01/08/17 01/09/17 22:40 22:40 00:37 RBC 1.71 L Hgb 6.3 L Hct 18.5 L MCV 108 H MCH 37.0 H RDW 23.1 H Sodium 136.7 L BUN 54 H Creatinine 3.63 H Est GFR ( Amer) 15 L Est GFR (Non-Af Amer) 12 L Glucose 116 H Direct Bilirubin 1.0 H AST 51 H Alkaline Phosphatase 150 H Crossmatch See Detail Discharge - Discharge Clinical Impression: Blood loss anemia Chronic kidney disease Qualifiers: Chronic kidney disease stage: unspecified stage Qualified Code(s): N18.9 - Chronic kidney disease, unspecified Condition: Good Disposition: HOME, SELF-CARE Additional Instructions: You were given a unit of blood here and will get 2 more during dialysis tomorrow. Return for any additional symptoms that are worrisome to you including weakness, passing out, vomiting, rectal bleeding, or any other symptoms that are concerning to you.
[2017-01-09 05:21] VITALS: BP 115/40
== END 2017-01-09 04:45 | disposition home or self-care (01) ==
LOC: ER 20:10
DX: D50.0 Iron deficiency anemia secondary to blood loss (chronic) (principal); N18.9 Chronic kidney disease, unspecified; E11.22 Type 2 diabetes mellitus with diabetic chronic kidney disease; I12.9 Hypertensive chronic kidney disease with stage 1 through stage 4 chronic kidney disease, or unspecified chronic kidney disease; I25.10 Atherosclerotic heart disease of native coronary artery without angina pectoris; I25.2 Old myocardial infarction; E78.00 Pure hypercholesterolemia, unspecified; Z90.49 Acquired absence of other specified parts of digestive tract; Z90.710 Acquired absence of both cervix and uterus; Z98.890 Other specified postprocedural states
CPT/HCPCS: 99283; 86900; 86901; 36415; 36430; 86850; 85025; 85610; 85730; 80053; 86920; P9016

== ENCOUNTER 2017-01-09 15:55 | Outpatient (CLI) | payer MEDICARE, OTHER ==
[2017-01-09] MEDS ORDERED: ACETAMINOPHEN 325 MG TABLET PO PRN (17:18)
[2017-01-09] MEDS ORDERED: DIPHENHYDRAMINE HCL 25 MG CAPSULE PO PRN (17:19)
[2017-01-09] MEDS ORDERED: FUROSEMIDE INJ/PF 40 MG/4 ML SDV IV PRN (19:45)
[2017-01-09] MEDS ORDERED: SIMETHICONE 80 MG TAB.CHEW PO PRN (23:46)
[2017-01-10 03:16] LABS: HEMATOCRIT 27.2 % (36.0-47.0); HGB HCT DIFFERENCE 1.9; MEAN CORPUSCULAR HEMOGLOBIN 34.1 pg (27.0-33.4); MEAN CORPUSCULAR HGB CONC 35.6 g/dL (32.0-36.0); RED BLOOD COUNT 2.84 10^6/uL (3.72-5.28); RED CELL DISTRIBUTION WIDTH 20.9 % (11.5-14.0); WHITE BLOOD COUNT 5.6 10^3/uL (4.0-10.5)
[2017-01-10 03:18] LABS: HEMOGLOBIN 9.7 g/dL (12.0-15.5)
[2017-01-10 03:19] LABS: MEAN CORPUSCULAR VOLUME 96 fl (80-97)
[2017-01-10 04:06] VITALS: BP 145/54
== END 2017-01-10 06:57 | disposition home or self-care (01) ==
LOC: II 15:55 → 3W 16:07 → II 01-10 06:57
PROVIDERS: ATTEND Internal Medicine Nephrology
PROC: 30233N1 Transfusion of Nonautologous Red Blood Cells into Peripheral Vein, Percutaneous Approach (ICD-10-PCS; principal; 2017-01-09)
DX: N18.6 End stage renal disease (principal); D63.1 Anemia in chronic kidney disease
CPT/HCPCS: 86900; 86901; 36415; 36430; 86850; 85027; 86920; P9016; J1940; A9270; 96374

== ENCOUNTER → 2017-03-24 | Outpatient (CLI) | payer MEDICARE, OTHER | LOC: OD 13:27 | PROVIDERS: ATTEND Internal Medicine Cardiovascular Disease | DX: E03.9 Hypothyroidism, unspecified (principal) | CPT/HCPCS: 36415; 84443 ==

== ENCOUNTER → 2017-04-07 | Day surgery (SDC) | payer MEDICARE, OTHER ==
[~2017-04-07] MED LIST: BUPIVACAINE HCL 0.5 % INJ/PF 30 ML SDV ONE; LIDOCAINE 1% INJ-PF (10 MG/ML) 30 ML SDV ONE; METHYLPREDNISOLONE ACETATE INJ 40 MG/1 ML ML ONE
--- NOTE | 2017-04-07 14:45 | RADIOLOGY REPORT (SQ) ---
EXAM DESCRIPTION: HIP UNILATERAL-1 VIEW; FLUORO/NEEDLE PLACEMENT; INJECT/ASPIR HIP/SHLDR/KNEE COMPLETED DATE/TIME: 04/07/2017 1:48 pm REASON FOR STUDY: UNILATERAL PRIMARY OSTEOARTHRISTIS, RIGHT HIP M16.11 UNILATERAL PRIMARY OSTEOARTH RITIS, RIGHT HIP COMPARISON: None. FLUOROSCOPY TIME: 18 seconds 1 digital radiographic image saved to PACS. LIMITATIONS: None. PROCEDURE: SITE OF INJECTION: Right hip joint LOCALIZING CONTRAST TYPE AND DOSE: 1 mL of Isovue-300 was injected to confirm intra-articular needle placement MEDICATION TYPE AND DOSE: 80 mg of Depo-Medrol, 2 mL of 0.5% bupivacaine Using local anesthesia and sterile technique with fluoroscopic guidance, the needle was advanced into the joint. Iodinated contrast was injected to verify intraarticular placement. This was followed by therapeutic injection of the indicated medications. The needle was removed. There were no immediat e complications. Preprocedure pain level: 2/10. Postprocedure pain level: 0/10. IMPRESSION: THERAPEUTIC INJECTION OF THE RIGHT HIP JOINT ABOVE. COMMENT: Patient medication list reviewed: Yes- Quality ID# [id number]:Eligible professional attests to doc umenting in the medical record they obtained, updated, or reviewed the patient's current medications. . Quality ID [id number]: Final reports for procedures using fluoroscopy that document radiation exposure laci jean carlos, or exposure time and number of fluorographic images (if radiation exposure indices are not avail able) TECHNICAL DOCUMENTATION: JOB ID: [id number] [employer]- All Rights Reserved
== END ==
LOC: WI 13:02
PROC: 3E0U33Z Introduction of Anti-inflammatory into Joints, Percutaneous Approach (ICD-10-PCS; principal; 2017-04-07)
DX: M16.11 Unilateral primary osteoarthritis, right hip (principal)
CPT/HCPCS: 73501; 20610; 77002; J3490; J1020

== ENCOUNTER → 2017-06-18 | Outpatient (CLI) | payer MEDICARE, OTHER ==
[2017-06-18 13:01] LABS: HEMATOCRIT 31.2 % (36.0-47.0); HEMOGLOBIN 10.5 g/dL (12.0-15.5); MEAN CORPUSCULAR HEMOGLOBIN 33.9 pg (27.0-33.4); MEAN CORPUSCULAR HGB CONC 33.5 g/dL (32.0-36.0); MEAN CORPUSCULAR VOLUME 101 fl (80-97); PLATELET COUNT 294 10^3/uL (150-450); RED BLOOD COUNT 3.08 10^6/uL (3.72-5.28); RED CELL DISTRIBUTION WIDTH 16.5 % (11.5-14.0); WHITE BLOOD COUNT 4.3 10^3/uL (4.0-10.5)
[2017-06-18 13:33] LABS: ANION GAP 10 (5-19); BLOOD UREA NITROGEN 30 mg/dL (7-20); CALCIUM 8.8 mg/dL (8.4-10.2); CARBON DIOXIDE 30 mmol/L (22-30); CHLORIDE 97 mmol/L (98-107); GLUCOSE 72 mg/dL (75-110); POTASSIUM 4.6 mmol/L (3.6-5.0); SODIUM 137.3 mmol/L (137-145)
[2017-06-18 13:45] LABS: FREE T4 (FREE THYROXINE) 2.93 ng/dL (0.78-2.19)
[2017-06-18 13:59] LABS: THYROID STIMULATING HORMONE 0.31 uIU/mL (0.47-4.68)
== END ==
LOC: OD 12:09
PROVIDERS: ATTEND Internal Medicine Cardiovascular Disease
DX: R00.2 Palpitations (principal); Z79.899 Other long term (current) drug therapy
CPT/HCPCS: 36415; 80048; 83735; 84439; 84443; 85027

== ENCOUNTER → 2017-07-24 | Outpatient (CLI) | payer MEDICARE, OTHER | LOC: SD 20:49 | PROVIDERS: ATTEND Internal Medicine Nephrology | DX: Z53.9 Procedure and treatment not carried out, unspecified reason (principal) | CPT/HCPCS: 85027 ==

== ENCOUNTER 2017-07-25 08:24 | Emergency (ER) | payer MEDICARE, OTHER ==
--- NOTE | 2017-07-25 09:29 | ER Document Report ---
ED General - General Chief Complaint: Anemia Stated Complaint: POSSIBLE ANEMIA Time Seen by Provider: 07/25/17 08:36 Mode of Arrival: Ambulatory Information source: Patient Notes: Patient presents emergency department with reports that she is here for blood. She reports Dr. Churchill's office called her and told her to come in for a blood transfusion. I contacted Dr. Churchill to confirm she sent patient here for a blood transfusion since this is what the patient said. Dr. Churchill requests patient be evaluated in the ED due to drop in H/H. Patient reports for the past year she has been short of breath and weak. Denies new symptoms. She reports she has a history of blood transfusions in the past post surgery. She denies nausea vomiting diarrhea. Reports normal bowel movement this morning denies blood in her stool. Reports she did fall 3 weeks ago after she turned wrong and hit the cabinet and fell down. Pt does take plavix daily. Denies any abdominal pain, answers all questions appropriately, no obvious neuro deficit. Patient does have ecchymosis to her right forearm. She reports she has dialysis and hematoma happended after dialysis. TRAVEL OUTSIDE OF THE [place] IN LAST 30 DAYS: No - HPI Onset: Yesterday - Hgb checked yesterday Quality of pain: No pain Severity: None Associated symptoms: None Exacerbated by: Denies Relieved by: Denies Similar symptoms previously: Yes Recently seen / treated by doctor: Yes - Related Data Allergies/Adverse Reactions: No Known Allergies Allergy (Verified 07/25/17 08:27) Past Medical History - General Information source: Patient - Social History Smoking Status: Former Smoker Cigarette use (# per day): No Smoking Education Provided: No Frequency of alcohol use: None Drug Abuse: None Family History: Reviewed & Not Pertinent Patient has suicidal ideation: No Patient has homicidal ideation: No - Past Medical History Cardiac Medical History: Reports: Hx Coronary Artery Disease, Hx Heart Attack, Hx Hypercholesterolemia, Hx Hypertension Pulmonary Medical History: Denies: Hx Asthma, Hx Bronchitis, Hx COPD, Hx Pneumonia Neurological Medical History: Denies: Hx Cerebrovascular Accident, Hx Seizures Endocrine Medical History: Reports: Hx Diabetes Mellitus Type 2 Renal/ Medical History: Reports: Hx End Stage Renal Disease, Hx Hemodialysis, Hx Renal Insufficiency. Denies: Hx Peritoneal Dialysis Musculoskeltal Medical History: Reports Hx Arthritis - GENERALIZED Past Surgical History: Reports: Hx Abdominal Surgery - infection bowel/ reversed colostomy-2004, Hx Bowel Surgery - colon ruptured-2002, Hx Cardiac Catheterization - 1992, Hx Cardiac Surgery - collapsed artery-1992, Hx Cholecystectomy, Hx Gynecologic Surgery, Hx Hysterectomy, Hx Kidney (Renal Surgery) - cystectomy-2002, Hx Orthopedic Surgery - total left hip-2000, Hx Vascular Surgery - Immunizations Hx Diphtheria, Pertussis, Tetanus Vaccination: Yes Hx Pneumococcal Vaccination: 04/27/08 Review of Systems - Review of Systems Notes: Review HPI for review of systems., All other systems negative Physical Exam - Vital signs Vitals: Temp Pulse Resp BP Pulse Ox 97.8 F 101 H 18 101/35 L 100 07/25/17 08:30 07/25/17 08:30 07/25/17 08:30 07/25/17 08:30 07/25/17 08:30 - Notes Notes: PHYSICAL EXAMINATION: GENERAL: Well-appearing and in no acute distress HEAD: Atraumatic, normocephalic. EYES: Pupils equal round extraocular movements intact, sclera anicteric, conjunctiva are normal. ENT: nares patent, Moist mucous membranes. NECK: Normal range of motion, supple without lymphadenopathy LUNGS: CTAB and equal. No wheezes rales or rhonchi. HEART: Regular rate and rhythm without murmurs ABDOMEN: Soft, no tenderness. No guarding, no rebound BACK: Denies pain, no ecchymosis EXTREMITIES: Normal range of motion, no pitting edema. No cyanosis. large h I have consulted the attending provider per APC guidelines hematoma to right forearm, fistula right arm, +thrill NEUROLOGICAL: Cranial nerves grossly intact. Normal sensory/motor exams. PSYCH: Normal mood, normal affect. SKIN: Warm, Dry, normal turgor, no rashes or lesions noted - Abdominal Inspection: Normal Distension: No distension Bowel sounds: Normal Tenderness: Nontender Organomegaly: No organomegaly - Rectal Tenderness: No Stool: Heme positive Hemorrhoids: None - Skin Skin Temperature: Warm Skin Moisture: Dry Irregularity with: Other - ecchymosis, faint to left buttocks- skin soft Course - Re-evaluation Re-evalutation: 07/25/17 09:23 will obtain labs, plan for blood transfusion, admission 07/25/17 10:57 h/h slightly improved from 6.1/19.9 yesterday 07/24/17 to 7.1/ 21.9, +hemocult , troponin 2.60 Pt denies chest pain/abdominal pain, reports she has been SOB/weak for a year, denies new symptoms. consulted dr cooper per apc guidelines. Pt will need evaluation for multiple concerns with history of dialysis M-W-. 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 Pt updated on all results, requests her daughter Jessie be called to update her 07/25/17 11:21 Dr Alan resident returned call, accepted transfer for Dr Bragg, [facility] will arrange transport. Pts daughter contacted with all results, plan of action. She agree's with transfer. She requests Dr. Parker be notified. 07/25/17 11:30 Dr. Parker paged through the cell operator. 07/25/17 12:49 watching tv, prbc, 1st unit infusing, declines food, no needs at this time. 07/25/17 15:15 Patient reports she has a history of chronic back pain hip pain. She usually takes 10 mg of hydromorphone 4 times a day. Transport here. Patient vital signs stable. Patient ordered p.o. dilaudid before transport for comfort. PRBC 's completed. - Vital Signs Vital signs: Temp Pulse Resp BP Pulse Ox 98.3 F 89 15 127/52 H 99 07/25/17 15:26 07/25/17 15:01 07/25/17 15:10 07/25/17 15:10 07/25/17 15:10 - Laboratory Result Diagrams: 07/25/17 09:28 07/25/17 09:28 Laboratory results interpreted by me: 07/25/17 07/25/17 07/25/17 09:28 09:28 09:28 RBC 2.01 L Hgb 7.1 L Hct 21.9 L MCV 109 H MCH 35.5 H RDW 18.7 H Lymphocytes % 12.4 L Carbon Dioxide 34 H BUN 29 H Creatinine 3.10 H Est GFR ( Amer) 18 L Est GFR (Non-Af Amer) 15 L AST 44 H Alkaline Phosphatase 136 H Total Protein 5.7 L Albumin 3.4 L Crossmatch See Detail - EKG Interpretation by Me EKG shows normal: Sinus rhythm When compared to previous EKG there are: No significant change Discharge - Discharge Clinical Impression: Elevated troponin GIB (gastrointestinal bleeding) Qualifiers: GI bleed type/associated pathology: unspecified gastrointestinal hemorrhage type Qualified Code(s): K92.2 - Gastrointestinal hemorrhage, unspecified Condition: Stable Disposition: [facility] Referrals: ELBA RAMIREZ MD [Primary Care Provider] - Follow up as needed
[2017-07-25 10:02] LABS: ABSOLUTE BASOPHILS # (AUTO) 0.1 10^3/uL (0.0-0.2); ABSOLUTE EOSINOPHILS # (AUTO) 0.1 10^3/uL (0.0-0.6); ABSOLUTE LYMPHOCYTES (AUTO) 0.9 10^3/uL (0.5-4.7); ABSOLUTE MONOCYTES (AUTO) 0.6 10^3/uL (0.1-1.4); ABSOLUTE NEUT (AUTO) 5.7 10^3/uL (1.7-8.2); BASOPHILS % (AUTO) 0.9 % (0-2); EOSINOPHILS % (AUTO) 1.1 % (0-6); HEMATOCRIT 21.9 % (36.0-47.0); LYMPHOCYTES % (AUTO) 12.4 % (13-45); MEAN CORPUSCULAR HEMOGLOBIN 35.5 pg (27.0-33.4); MEAN CORPUSCULAR HGB CONC 32.6 g/dL (32.0-36.0); MEAN CORPUSCULAR VOLUME 109 fl (80-97); MONOCYTES % (AUTO) 8.3 % (3-13); PLATELET COUNT 343 10^3/uL (150-450); RED BLOOD COUNT 2.01 10^6/uL (3.72-5.28); RED CELL DISTRIBUTION WIDTH 18.7 % (11.5-14.0); SEGMENTED NEUTROPHILS % (AUTO) 77.3 % (42-78); TOTAL CELLS COUNTED % (AUTO) 100 %; WHITE BLOOD COUNT 7.4 10^3/uL (4.0-10.5)
[2017-07-25 10:05] LABS: HEMOGLOBIN 7.1 g/dL (12.0-15.5)
[2017-07-25 10:15] LABS: INTERNATIONAL RATION (INR) 0.93; PROTHROMBIN TIME 13.1 SEC (11.4-15.4)
[2017-07-25 10:16] LABS: PARTIAL THROMBOPLASTIN TIME 27.5 SEC (23.5-35.8)
--- NOTE | 2017-07-25 10:19 | EKG REPORT ---
SEVERITY:- ABNORMAL ECG - SINUS RHYTHM ATRIAL PREMATURE COMPLEX PROBABLE LEFT ATRIAL ABNORMALITY ABNORMAL T, CONSIDER ISCHEMIA, LATERAL LEADS : Confirmed by: Ramírez Parker MD 25-Jul-2017 10:19:11
[2017-07-25 10:26] LABS: ALANINE AMINOTRANSFERASE 25 U/L (9-52); ALBUMIN 3.4 g/dL (3.5-5.0); ALKALINE PHOSPHATASE 136 U/L (38-126); ANION GAP 7 (5-19); ASPARTATE AMINO TRANSFERASE 44 U/L (14-36); BILIRUBIN,DIRECT 0.4 mg/dL (0.0-0.4); BILIRUBIN,TOTAL 0.4 mg/dL (0.2-1.3); BLOOD UREA NITROGEN 29 mg/dL (7-20); CALCIUM 8.6 mg/dL (8.4-10.2); CARBON DIOXIDE 34 mmol/L (22-30); CHLORIDE 99 mmol/L (98-107); GLUCOSE 79 mg/dL (75-110); POTASSIUM 3.6 mmol/L (3.6-5.0); TOTAL PROTEIN 5.7 g/dL (6.3-8.2)
[2017-07-25 10:34] LABS: CREATINE KINASE MB 0.87 ng/mL (<4.55)
[2017-07-25 10:39] LABS: TROPONIN I 2.16 ng/mL
[2017-07-25] MEDS ORDERED: NORMAL SALINE 250 ML IV PRN (10:48)
[2017-07-25] MEDS ORDERED: OXYCODONE-ACETAMINOPHEN 5-325 MG TABLET PO ONE (15:10)
[2017-07-25] MEDS ORDERED: HYDROMORPHONE HCL INJ/PF 2 MG/ML AMPULE IV ONE (15:11)
[2017-07-25] MEDS ORDERED: HYDROMORPHONE HCL 2 MG TABLET PO ONE (15:15)
[2017-07-25 15:26] VITALS: BP 127/52
== END 2017-07-25 15:29 | disposition short-term general hospital (02) ==
LOC: ER 08:24
DX: K92.2 Gastrointestinal hemorrhage, unspecified (principal); R74.8 Abnormal levels of other serum enzymes; R06.02 Shortness of breath; R53.1 Weakness; S30.0XXA Contusion of lower back and pelvis, initial encounter; W19.XXXA Unspecified fall, initial encounter; I12.0 Hypertensive chronic kidney disease with stage 5 chronic kidney disease or end stage renal disease; E11.22 Type 2 diabetes mellitus with diabetic chronic kidney disease; N18.6 End stage renal disease; Z99.2 Dependence on renal dialysis; I25.2 Old myocardial infarction; I25.10 Atherosclerotic heart disease of native coronary artery without angina pectoris; Z79.02 Long term (current) use of antithrombotics/antiplatelets; M54.9 Dorsalgia, unspecified; M25.559 Pain in unspecified hip; G89.29 Other chronic pain; Z79.891 Long term (current) use of opiate analgesic; Z87.891 Personal history of nicotine dependence
CPT/HCPCS: 93005; 99285; 86900; 86901; 36415; 82553; 36430; 86850; 82550; 85025; 85610; 85730; 82272; 80053; 84484; 86920; 93010; P9016; A9270; J7050

== ENCOUNTER 2017-08-13 09:52 | Emergency (ER) | payer MEDICARE, OTHER ==
--- NOTE | 2017-08-13 10:27 | ER Document Report ---
ED Medical Screen (RME) - General Chief Complaint: Dialysis Shunt Problem Stated Complaint: CATH PROBLEM Time Seen by Provider: 08/13/17 10:19 Mode of Arrival: Ambulatory Information source: Patient Notes: Patient is a 77-year-old Thursday, Thursday, Thursday dialysis patient that presents to emergency department today with complaints of bleeding out of her dialysis shunt. Patient states she woke up this morning at 0400 and noticed the bleeding. Patient states she had dialysis yesterday with no problems. Patient denies any trauma to the area. Patient states this fistula was placed approximately 3 years ago. TRAVEL OUTSIDE OF THE [place] IN LAST 30 DAYS: No - Related Data Allergies/Adverse Reactions: No Known Allergies Allergy (Verified 07/25/17 08:27) Past Medical History - General Information source: Patient - Social History Chew tobacco use (# tins/day): No Frequency of alcohol use: None Drug Abuse: None Lives with: Family Family history: None - Past Medical History Cardiac Medical History: Reports: Hx Coronary Artery Disease, Hx Heart Attack - no mi. 2 stents, Hx Hypercholesterolemia, Hx Hypertension Endocrine Medical History: Reports: Hx Diabetes Mellitus Type 2 - borderline in the past, Renal/ Medical History: Reports: Hx End Stage Renal Disease, Hx Hemodialysis, Hx Renal Insufficiency Musculoskeltal Medical History: Reports Hx Arthritis - GENERALIZED Past Surgical History: Reports: Hx Abdominal Surgery - infection bowel/ reversed colostomy-2004, Hx Bowel Surgery - colon ruptured-2002, Hx Cardiac Catheterization - 1992, Hx Cardiac Surgery - collapsed artery-1992, Hx Cholecystectomy, Hx Gynecologic Surgery, Hx Hysterectomy, Hx Kidney (Renal Surgery) - cystectomy-2002, Hx Orthopedic Surgery - total left hip-2000, Hx Vascular Surgery - Immunizations Hx Diphtheria, Pertussis, Tetanus Vaccination: Yes Review of Systems - Review of Systems Constitutional: No symptoms reported EENT: No symptoms reported Cardiovascular: See HPI, Other - dialysis shunt bleeding Respiratory: No symptoms reported Gastrointestinal: No symptoms reported Genitourinary: No symptoms reported Female Genitourinary: No symptoms reported Musculoskeletal: No symptoms reported Skin: No symptoms reported Hematologic/Lymphatic: No symptoms reported Neurological/Psychological: No symptoms reported -: Yes All other systems reviewed and negative Physical Exam - Notes Notes: Physical Exam: General: Alert, appears well. HEENT: Normocephalic. Atraumatic. PERRLA. Extraocular movements intact. Oropharynx clear. Neck: Supple. Respiratory: No respiratory distress. Abdominal: Normal Inspection. No distension. Extremities: Moves all four extremities. Dialysis shunt in RUE, tape covering area with active bleeding, somewhat controlled with tape. 2+ radial pulses bilaterally. Neurological: Normal cognition. AAOx4. Normal speech. Psychological: Normal affect. Normal Mood. Skin: Warm. Dry. Normal color. Doctor's Discharge - Discharge Clinical Impression: Bleeding from dialysis shunt Condition: Good Additional Instructions: Continue with her home medications follow-up with dialysis tomorrow. Return to the ER for any complications Please keep dressed and stationary. Please follow-up with Dr. Madison next Thursday Referrals: NICK THOMAS MD [Primary Care Provider] - Follow up as needed PRAKASH MADISON MD [ACTIVE STAFF] - 08/19/17 (call for appointment on thursday ) Scribe Documentation - Scribe Written by Nano:: Nano Jacobson, 08/13/2017 1124 acting as scribe for :: Isaiah
--- NOTE | 2017-08-13 11:14 | RADIOLOGY REPORT (SQ) ---
EXAM DESCRIPTION: CHEST 2 VIEWS COMPLETED DATE/TIME: 08/13/2017 10:58 am REASON FOR STUDY: cough, CP COMPARISON: 07/26/2016 NUMBER OF VIEWS: Two view. TECHNIQUE: Frontal and lateral radiographic views of the chest acquired. LIMITATIONS: None. FINDINGS: LUNGS AND PLEURA: No opacities, masses or pneumothorax. No pleural effusion. MEDIASTINUM AND HILAR STRUCTURES: No masses. No contour abnormalities. HEART AND VASCULAR STRUCTURES: Heart enlarged without failure. Aorta normal for age. BONES: No acute findings. HARDWARE: CABG. OTHER: No other significant finding. IMPRESSION: No acute findings in the chest. TECHNICAL DOCUMENTATION: JOB ID: [id number] [employer]- All Rights Reserved Reading location - IP/workstation name: [email or web address]
[2017-08-13] MEDS ORDERED: LIDOCAINE 1% INJ-PF (10 MG/ML) 30 ML SDV ONE (14:14)
--- NOTE | 2017-08-13 14:18 | ER Document Report ---
ED General - General Mode of Arrival: Ambulatory TRAVEL OUTSIDE OF THE [place] IN LAST 30 DAYS: No - HPI Patient complains to provider of: AV fistula bleeding - General Chief Complaint: Dialysis Shunt Problem Stated Complaint: CATH PROBLEM Time Seen by Provider: 08/13/17 10:19 - HPI Notes: Patient coming in for AV fistula bleeding after dialysis. Patient has had discomfort case in for for the dialysis needle site continues to bleed. No other complaints (LUIS,KAILA) - Related Data Allergies/Adverse Reactions: No Known Allergies Allergy (Verified 07/25/17 08:27) Past Medical History - General Information source: Patient - Social History Smoking Status: Unknown if Ever Smoked Chew tobacco use (# tins/day): No Frequency of alcohol use: None Drug Abuse: None Lives with: Family Family History: Reviewed & Not Pertinent Patient has suicidal ideation: No Patient has homicidal ideation: No - Past Medical History Cardiac Medical History: Reports: Hx Coronary Artery Disease, Hx Heart Attack - no mi. 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 Denies: Hx Peritoneal Dialysis Musculoskeltal Medical History: Reports Hx Arthritis - GENERALIZED Past Surgical History: Reports: Hx Abdominal Surgery - infection bowel/ reversed colostomy-2004, Hx Bowel Surgery - colon ruptured-2002, Hx Cardiac Catheterization - 1992, Hx Cardiac Surgery - collapsed artery-1992, Hx Cholecystectomy, Hx Gynecologic Surgery, Hx Hysterectomy, Hx Kidney (Renal Surgery) - cystectomy-2002, Hx Orthopedic Surgery - total left hip-2000, Hx Vascular Surgery - Immunizations Hx Diphtheria, Pertussis, Tetanus Vaccination: Yes Hx Pneumococcal Vaccination: 04/27/08 Review of Systems - Review of Systems Constitutional: Other - Bleeding AV fistula EENT: No symptoms reported Cardiovascular: No symptoms reported Respiratory: No symptoms reported Gastrointestinal: No symptoms reported Genitourinary: No symptoms reported Female Genitourinary: No symptoms reported Musculoskeletal: No symptoms reported Skin: No symptoms reported Hematologic/Lymphatic: No symptoms reported Neurological/Psychological: No symptoms reported Physical Exam - Vital signs Interpretation: Normal - General General appearance: Appears well, Alert - HEENT Head: Normocephalic, Atraumatic Eyes: Normal Pupils: PERRL - Respiratory Respiratory status: No respiratory distress Chest status: Nontender Breath sounds: Normal Chest palpation: Normal - Cardiovascular Rhythm: Regular Heart sounds: Normal auscultation Murmur: No - Abdominal Inspection: Normal Distension: No distension Bowel sounds: Normal Tenderness: Nontender Organomegaly: No organomegaly - Back Back: Normal, Nontender - Extremities General upper extremity: Nontender, Normal color, Normal ROM, Normal temperature. No: Normal inspection - Bleeding AV fistula palpable thrill right upper extremity General lower extremity: Normal inspection, Nontender, Normal color, Normal ROM , Normal temperature, Normal weight bearing. No: Sofia's sign - Neurological Neuro grossly intact: Yes Cognition: Normal Orientation: AAOx4 [place] Coma Scale Eye Opening: Spontaneous [place] Coma Scale Verbal: Oriented [place] Coma Scale Motor: Obeys Commands [place] Coma Scale Total: 15 Speech: Normal Motor strength normal: LUE, RUE, LLE, RLE Sensory: Normal - Psychological Associated symptoms: Normal affect, Normal mood - Skin Skin Temperature: Warm Skin Moisture: Dry Skin Color: Normal - Vital signs Vitals: Temp Pulse Resp BP Pulse Ox 97.9 F 80 17 109/36 L 95 08/13/17 10:00 08/13/17 10:00 08/13/17 10:00 08/13/17 10:00 08/13/17 10:00 Course - Re-evaluation Re-evalutation: 08/13/17 15:[address] Dermabond however this was unsuccessful. Patient's AV fistula was performed by Dr. Madison contacted and underwent a CT was okay with me personally placing a pursestring suture however states that he would rather come and do it himself. Daughter is at bedside performed definitive care for the bleeding site recommend follow-up in his office on Thursday patient was discharged (KAILA SMITH) - Vital Signs Vital signs: Temp Pulse Resp BP Pulse Ox 97.5 F 79 18 143/56 H 96 08/13/17 15:02 08/13/17 15:02 08/13/17 15:02 08/13/17 15:02 08/13/17 15:02 Discharge - Discharge Clinical Impression: Bleeding from dialysis shunt Qualifiers: Encounter type: initial encounter Qualified Code(s): T82.552G - Hemorrhage due to vascular prosthetic devices, implants and grafts, initial encounter Condition: Good Disposition: HOME, SELF-CARE Additional Instructions: Continue with her home medications follow-up with dialysis tomorrow. Return to the ER for any complications Please keep dressed and stationary. Please follow-up with Dr. Madison next Thursday Referrals: NICK THOMAS MD [Primary Care Provider] - Follow up as needed PRAKASH MADISON MD [ACTIVE STAFF] - 08/19/17 (call for appointment on thursday )
[2017-08-13 15:09] VITALS: BP 143/56
== END 2017-08-13 15:05 | disposition home or self-care (01) ==
LOC: ER 09:52
PROC: 05LY3ZZ Occlusion of Upper Vein, Percutaneous Approach (ICD-10-PCS; principal; 2017-08-13)
DX: T82.838A Hemorrhage due to vascular prosthetic devices, implants and grafts, initial encounter (principal); X58.XXXA Exposure to other specified factors, initial encounter; I25.10 Atherosclerotic heart disease of native coronary artery without angina pectoris; E78.00 Pure hypercholesterolemia, unspecified; I12.0 Hypertensive chronic kidney disease with stage 5 chronic kidney disease or end stage renal disease; N18.6 End stage renal disease; Z99.2 Dependence on renal dialysis; I25.2 Old myocardial infarction; Z90.49 Acquired absence of other specified parts of digestive tract; Z90.710 Acquired absence of both cervix and uterus; Z96.642 Presence of left artificial hip joint
CPT/HCPCS: 71046; 99283

== ENCOUNTER → 2017-10-13 | Outpatient (CLI) | payer MEDICARE, OTHER ==
[2017-10-13 10:35] LABS: CHOLESTEROL 98.68 mg/dL (0-200); TRIGLYCERIDES 66 mg/dL (<150)
[2017-10-13 10:52] LABS: DIRECT LDL < 30 mg/dL (<100)
== END ==
LOC: OD 09:03
PROVIDERS: ATTEND Internal Medicine Cardiovascular Disease
DX: E78.00 Pure hypercholesterolemia, unspecified (principal); I25.10 Atherosclerotic heart disease of native coronary artery without angina pectoris
CPT/HCPCS: 36415; 80061

== ENCOUNTER → 2017-12-17 | Outpatient (CLI) | payer MEDICARE, OTHER ==
--- NOTE | 2017-12-17 17:48 | RADIOLOGY REPORT (SQ) ---
EXAM DESCRIPTION: VENOUS UNILATERAL LOWER COMPLETED DATE/TIME: 12/17/2017 5:38 pm REASON FOR STUDY: LLE SWELLING M79.89 OTHER SPECIFIED SOFT TISSUE DISORDERS COMPARISON: None. TECHNIQUE: Dynamic and static garcia scale and color images acquired of the left leg venous system. Se lected spectral images acquired with additional compression and augmentation maneuvers. The contralat eral common femoral vein and saphenofemoral junction were also imaged. Images stored on PACS. LIMITATIONS: None. FINDINGS: COMMON FEMORAL: Normal phasicity, compression and augmentation. No visualized echogenic ma terial on garcia scale. No defects on color images. FEMORAL: Normal compression and augmentation. No visualized echogenic material on garcia scale. No defe cts on color images. POPLITEAL: Normal compression, augmentation. No visualized echogenic material on garcia scale. No defec ts on color images. CALF VESSELS: Normal compression, augmentation. No visualized echogenic material on garcia scale. No de fects on color images. GSV and SSV: Normal compression, augmentation. No visualized echogenic material on garcia scale. No def ects on color images. ANY DEEP VENOUS INSUFFICIENCY: Not evaluated. ANY EVIDENCE OF POPLITEAL CYST: No. OTHER: No other significant finding. CONTRALATERAL COMMON FEMORAL VEIN AND SAPHENOFEMORAL JUNCTION: Normal phasicity, compression and augmentation. No visualized echogenic material on garcia scale. No de fects on color images. IMPRESSION: NO EVIDENCE OF DVT OR SVT IN THE LEFT LEG. TECHNICAL DOCUMENTATION: JOB ID: [id number] [employer]- All Rights Reserved Reading location - IP/workstation name: [email or web address]
== END ==
LOC: SP 16:39
PROVIDERS: ATTEND Internal Medicine
DX: M79.89 Other specified soft tissue disorders (principal)
CPT/HCPCS: 93971

== ENCOUNTER → 2018-05-20 | Outpatient (CLI) | payer MEDICARE, OTHER | LOC: OD 13:08 | PROVIDERS: ATTEND Physician Assistant | DX: R06.00 Dyspnea, unspecified (principal) | CPT/HCPCS: 36415; 83880 ==

== ENCOUNTER → 2018-06-11 | Outpatient (CLI) | payer MEDICARE, OTHER | LOC: OD 16:21 | PROVIDERS: ATTEND Internal Medicine Cardiovascular Disease | DX: I50.9 Heart failure, unspecified (principal) | CPT/HCPCS: 36415; 83880 ==

== ENCOUNTER 2018-06-24 12:49 | Inpatient (IN) | payer MEDICARE, OTHER ==
--- NOTE | 2018-06-24 13:31 | ER Document Report ---
ED General - General Chief Complaint: Low Blood Pressure Stated Complaint: RIGHT HIP PAIN Time Seen by Provider: 06/24/18 12:54 Primary Care Provider: MARISOL IRELAND MD [Primary Care Provider] - Follow up as needed TRAVEL OUTSIDE OF THE [place] IN LAST 30 DAYS: No - HPI Notes: Patient is a 78-year-old female that presents to the emergency department for chief complaint of lower extremity edema and hypotension. Patient was reportedly at dialysis and referred to the ER for hypotension. Her blood pressure was 88 systolic per EMS report. Patient is only complaining of pain in her left thigh. She states yesterday she was sitting on the commode and had a difficult time getting up because of the edema in her legs. She states she slid down onto the ground landing on her buttocks. Since then she has had pain in her left hip. The pain is sharp and worse with any movement or pal pation. She has not taken any medication for her pain. She states it is hard to move her leg because of the edema and pain. Patient states she has severe arthritis and has been told she would benefit from a hip replacement however surgery is not an option because of her medical illnesses. She has had dialysis Thursday and had not missed any prior to that. Patient denies any other complaints including chest pain, shortness of breath, fevers and chills. Past Medical History: End-stage renal disease on dialysis Past Surgical History: Right proximal extremity AV fistula Social History: Denies tobacco and alcohol use Family History: Reviewed and noncontributory for presenting illness Allergies: Reviewed, see documented allergy list. REVIEW OF SYSTEMS: CONSTITUTIONAL : No fever No chills No diaphoresis No recent illness EENT: No vision changes No congestion No sore throat CARDIOVASCULAR: No chest pain No palpitations RESPIRATORY: No shortness of breath No cough No difficulty breathing GASTROINTESTINAL: No abdominal pain No nausea No vomiting No diarrhea GENITOURINARY: No dysuria No hematuria No difficulty urinating MUSCULOSKELETAL: No back pain leg pain No arm pain SKIN: No rashes No lesions LYMPHATIC: No swollen, enlarged glands. NEUROLOGICAL: No lightheadedness No headache No weakness No paresthesias PSYCHIATRIC: No anxiety No depression PHYSICAL EXAMINATION: Vital signs reviewed, nursing noted reviewed. GENERAL: Well-appearing, well-nourished and in no acute distress. HEAD: Atraumatic, normocephalic. EYES: Eyes appear normal, extraocular movements intact, sclera anicteric, conjunctiva are normal. ENT: nares patent, oropharynx clear without exudates. Moist mucous membranes. NECK: Normal range of motion, supple without lymphadenopathy LUNGS: Breath sounds diminished bilaterally, no tachypnea or accessory muscle use HEART: Regular rate and rhythm without murmurs, right proximal extremity AV fistula with good bruit and thrill, no bleeding. ABDOMEN: Soft, nontender, normoactive bowel sounds. No rebound, guarding, or rigidity. No masses appreciated. EXTREMITIES: Lateral left thigh tenderness, no left hip tenderness, decreased range of motion of left hip and knee, +2 pitting edema bilateral lower extremity with serous drainage. NEUROLOGICAL: No focal neurological deficits. Moves all extremities spontaneously Motor and sensory grossly intact on exam. PSYCH: Normal mood, normal affect. SKIN: Warm, Dry, normal turgor, chronic venous stasis color changes to bilateral lower extremity with serous drainage, mild erythema with no induration or Calor - Related Data Allergies/Adverse Reactions: No Known Allergies Allergy (Verified 06/24/18 13:29) Past Medical History - Social History Smoking Status: Never Smoker Family History: Reviewed & Not Pertinent - Past Medical History Cardiac Medical History: Reports: Hx Coronary Artery Disease, Hx Heart Attack - no mi. 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 Denies: Hx Peritoneal Dialysis Musculoskeletal Medical History: Reports Hx Arthritis - GENERALIZED Past Surgical History: Reports: Hx Abdominal Surgery - infection bowel/ reversed colostomy-2004, Hx Bowel Surgery - colon ruptured-2002, Hx Cardiac Catheterization - 1992, Hx Cardiac Surgery - collapsed artery-1992, Hx Cholecystectomy, Hx Gynecologic Surgery, Hx Hysterectomy, Hx Kidney (Renal Surgery) - cystectomy-2002, Hx Orthopedic Surgery - total left hip-2000, Hx Vascular Surgery - Immunizations Hx Diphtheria, Pertussis, Tetanus Vaccination: Yes Hx Pneumococcal Vaccination: 04/27/08 Physical Exam - Vital signs Vitals: Resp 17 06/24/18 12:54 Course - Re-evaluation Re-evalutation: 06/24/18 16:59 Vitals reviewed. Nursing notes reviewed. Patient's blood pressure has not been hypotensive while in the emergency room. Her lab work shows chronic renal failure with no hyperkalemia. Her chest x-ray shows no fluid overloaded state. She is not requiring emergent dialysis. She did have pain in her left hip after a fall that she obtained yesterday. X-ray showed no acute fracture however with the hardware in place and her tenderness I felt CT was warranted. CT scan shows no dislodgment of her hip replacement. 06/24/18 17:21 Patient's troponin just resulted elevated at 0.4. She has no changes in her EKG compared to prior. She does have a history of elevated troponin in the past likely related to her end-stage renal disease however there is not a good record of troponins to say that her 0.4 is baseline for her. Patient's family now states that she has had a cardiac echo in the last few weeks by Dr. Ireland and was told that she likely had a heart attack recently. She denies ever having any chest pain. Patients care discussed with Dr. Ireland, her industrial engineering manager, who reviewed her recent ECHO and heart catheterization from 2017. Dr. Ireland states that she does have significant CAD with history of 100% proximal LAD occlusion. Patient's recent echo showed wall abnormalities. He does believe the elevated troponin is secondary to renal insufficiency and demand ischemia from her continued hypotension. On reevaluation she had complained of syncopal episode in the last few days warranting admission to the hospital. Patient will be admitted to the hospital for her hypotension, syncope and elevated troponin. Case discussed with Dr. Vela who accepts admission. Laboratory 06/24/18 06/24/18 06/24/18 14:47 14:47 14:47 WBC 8.9 RBC 2.50 L Hgb 8.1 L Hct 25.0 L MCV 100 H MCH 32.5 MCHC 32.5 RDW 16.4 H Plt Count 304 Seg Neutrophils % 87.8 H Lymphocytes % 5.2 L Monocytes % 5.9 Eosinophils % 0.5 Basophils % 0.6 Absolute Neutrophils 7.8 Absolute Lymphocytes 0.5 Absolute Monocytes 0.5 Absolute Eosinophils 0.0 Absolute Basophils 0.1 Sodium Cancelled Potassium Cancelled Chloride Cancelled Carbon Dioxide Cancelled Anion Gap Cancelled BUN Cancelled Creatinine Cancelled Est GFR ( Amer) Cancelled Est GFR (Non-Af Amer) Cancelled Glucose Cancelled Calcium Cancelled Total Bilirubin Cancelled Direct Bilirubin Cancelled Neonat Total Bilirubin Cancelled Neonat Direct Bilirubin Cancelled Neonat Indirect Bili Cancelled AST Cancelled ALT Cancelled Alkaline Phosphatase Cancelled Troponin I Cancelled Total Protein Cancelled Albumin Cancelled 06/24/18 06/24/18 16:20 16:20 WBC RBC Hgb Hct MCV MCH MCHC RDW Plt Count Seg Neutrophils % Lymphocytes % Monocytes % Eosinophils % Basophils % Absolute Neutrophils Absolute Lymphocytes Absolute Monocytes Absolute Eosinophils Absolute Basophils Sodium 139.7 Potassium 4.0 Chloride 96 L Carbon Dioxide 30 Anion Gap 14 BUN 67 H Creatinine 6.63 H Est GFR ( Amer) 7 L Est GFR (Non-Af Amer) 6 L Glucose 92 Calcium 9.2 Total Bilirubin 0.8 Direct Bilirubin 0.7 H Neonat Total Bilirubin Not Reportable Neonat Direct Bilirubin Not Reportable Neonat Indirect Bili Not Reportable AST 64 H ALT 34 Alkaline Phosphatase 125 Troponin I 0.415 Total Protein 5.3 L Albumin 2.9 L Femur X-Ray 06/24/18 13:25 IMPRESSION: NEGATIVE STUDY OF THE LEFT FEMUR. NO RADIOGRAPHIC EVIDENCE OF ACUTE INJURY. Chest X-Ray 06/24/18 13:26 IMPRESSION: Moderate cardiomegaly. No acute findings Lower Extremity CT 06/24/18 14:50 IMPRESSION: No fracture. 06/24/18 17:42 - Vital Signs Vital signs: Temp Pulse Resp BP Pulse Ox 97.8 F 15 97/45 L 100 06/24/18 17:01 06/24/18 17:01 06/24/18 17:01 06/24/18 16:26 - Laboratory Result Diagrams: 06/24/18 14:47 06/24/18 16:20 Laboratory results interpreted by me: 06/24/18 06/24/18 14:47 16:20 RBC 2.50 L Hgb 8.1 L Hct 25.0 L MCV 100 H RDW 16.4 H Seg Neutrophils % 87.8 H Lymphocytes % 5.2 L Chloride 96 L BUN 67 H Creatinine 6.63 H Est GFR ( Amer) 7 L Est GFR (Non-Af Amer) 6 L Direct Bilirubin 0.7 H AST 64 H Total Protein 5.3 L Albumin 2.9 L - EKG Interpretation by Me Additional EKG results interpreted by me: 06/24/18 17:17 Interpreted by myself 1319: Normal sinus rhythm, rate 78, normal axis, no ectopy, unchanged from previous on 07/25/2017 Discharge - Discharge Clinical Impression: Elevated troponin, Transient hypotension, Left hip pain, Peripheral edema Fall Qualifiers: Encounter type: initial encounter Qualified Code(s): W19.XXXA - Unspecified fall, initial encounter Syncope Qualifiers: Syncope type: unspecified Qualified Code(s): R55 - Syncope and collapse Condition: Stable Disposition: ADMITTED OBSERVATION Admitting Provider: Hospitalist Unit Admitted: Telemetry Instructions: Hypotension ([facility]) Referrals: MARISOL IRELAND MD [Primary Care Provider] - Follow up as needed
--- NOTE | 2018-06-24 14:46 | RADIOLOGY REPORT (SQ) ---
EXAM DESCRIPTION: FEMUR LEFT COMPLETED DATE/TIME: 06/24/2018 2:36 pm REASON FOR STUDY: fall COMPARISON: None. NUMBER OF VIEWS: Two views. TECHNIQUE: Two radiographic images acquired of the left femur to include hip and knee in at least on e projection. LIMITATIONS: None. FINDINGS: MINERALIZATION: Normal. BONES: Left hip arthroplasty. No fracture or dislocation. SOFT TISSUES: No obvious swelling or foreign body. OTHER: No other significant finding. IMPRESSION: NEGATIVE STUDY OF THE LEFT FEMUR. NO RADIOGRAPHIC EVIDENCE OF ACUTE INJURY. TECHNICAL DOCUMENTATION: JOB ID: [id number] [employer]- All Rights Reserved Reading location - IP/workstation name: [email or web address]
--- NOTE | 2018-06-24 15:10 | RADIOLOGY REPORT (SQ) ---
EXAM DESCRIPTION: CHEST SINGLE VIEW COMPLETED DATE/TIME: 06/24/2018 3:01 pm REASON FOR STUDY: shortness of breath COMPARISON: Chest films 08/13/2017, 07/26/2016 EXAM PARAMETERS: NUMBER OF VIEWS: One view. TECHNIQUE: Single frontal radiographic view of the chest acquired. RADIATION DOSE: NA LIMITATIONS: None. FINDINGS: LUNGS AND PLEURA: No opacities, masses or pneumothorax. No pleural effusion. MEDIASTINUM AND HILAR STRUCTURES: No masses. Contour normal. HEART AND VASCULAR STRUCTURES: Moderate cardiomegaly. Old sternotomy and CABG BONES: No acute findings. HARDWARE: None in the chest. OTHER: No other significant finding. IMPRESSION: Moderate cardiomegaly. No acute findings TECHNICAL DOCUMENTATION: JOB ID: [id number] [employer]- All Rights Reserved Reading location - IP/workstation name: [email or web address]
[2018-06-24 15:19] LABS: ABSOLUTE BASOPHILS # (AUTO) 0.1 10^3/uL (0.0-0.2); ABSOLUTE LYMPHOCYTES (AUTO) 0.5 10^3/uL (0.5-4.7); ABSOLUTE MONOCYTES (AUTO) 0.5 10^3/uL (0.1-1.4); ABSOLUTE NEUT (AUTO) 7.8 10^3/uL (1.7-8.2); BASOPHILS % (AUTO) 0.6 % (0-2); EOSINOPHILS % (AUTO) 0.5 % (0-6); HEMOGLOBIN 8.1 g/dL (12.0-15.5); LYMPHOCYTES % (AUTO) 5.2 % (13-45); MEAN CORPUSCULAR HEMOGLOBIN 32.5 pg (27.0-33.4); MEAN CORPUSCULAR HGB CONC 32.5 g/dL (32.0-36.0); MEAN CORPUSCULAR VOLUME 100 fl (80-97); MONOCYTES % (AUTO) 5.9 % (3-13); PLATELET COUNT 304 10^3/uL (150-450); RED CELL DISTRIBUTION WIDTH 16.4 % (11.5-14.0); SEGMENTED NEUTROPHILS % (AUTO) 87.8 % (42-78); TOTAL CELLS COUNTED % (AUTO) 100 %; WHITE BLOOD COUNT 8.9 10^3/uL (4.0-10.5)
--- NOTE | 2018-06-24 16:24 | RADIOLOGY REPORT (SQ) ---
EXAM DESCRIPTION: CT LT LOWER EXTREMITY WITHOUT COMPLETED DATE/TIME: 06/24/2018 3:56 pm REASON FOR STUDY: left hip pain COMPARISON: None. TECHNIQUE: CT scan of the left hip performed without intravenous or oral contrast. Images reviewed with soft tissue and bone windows. Reconstructed coronal and sagittal MPR images reviewed. All imag es stored on PACS. All CT scanners at this facility use dose modulation, iterative reconstruction, and/or weight based d osing when appropriate to reduce radiation dose to as low as reasonably achievable (ALARA). [facility]: Dose Right [facility]: CareDose [facility]: Dose Right [facility]: Teradose 4D [facility]: [employer] RADIATION DOSE: CT Rad equipment meets quality standard of care and radiation dose reduction techniq ues were employed. CTDIvol: 7.1 mGy. DLP: 280 mGy-cm. mGy. LIMITATIONS: Artifact from hip prosthesis. FINDINGS: Intact total hip arthroplasty. Components without evidence of loosening or infection. No fracture or dislocation. Visualized pelvic bones intact. IMPRESSION: No fracture. TECHNICAL DOCUMENTATION: JOB ID: [id number] Quality ID # [id number]: Final reports with documentation of one or more dose reduction techniques (e.g., Au tomated exposure control, adjustment of the mA and/or kV according to patient size, use of iterative reconstruction technique) 2010 [employer]- All Rights Reserved Reading location - IP/workstation name: [email or web address]
[2018-06-24 16:53] LABS: ALANINE AMINOTRANSFERASE 34 U/L (9-52); ALBUMIN 2.9 g/dL (3.5-5.0); ALKALINE PHOSPHATASE 125 U/L (38-126); ANION GAP 14 (5-19); ASPARTATE AMINO TRANSFERASE 64 U/L (14-36); BILIRUBIN,DIRECT 0.7 mg/dL (0.0-0.4); BILIRUBIN,TOTAL 0.8 mg/dL (0.2-1.3); BLOOD UREA NITROGEN 67 mg/dL (7-20); CALCIUM 9.2 mg/dL (8.4-10.2); CARBON DIOXIDE 30 mmol/L (22-30); CHLORIDE 96 mmol/L (98-107); GLUCOSE 92 mg/dL (75-110); SODIUM 139.7 mmol/L (137-145); TOTAL PROTEIN 5.3 g/dL (6.3-8.2)
[2018-06-24] MEDS: MIDODRINE HCL 5 MG TABLET PO SCH (19:19)
[2018-06-24] MEDS: ACETAMINOPHEN 325 MG TABLET PO PRN (19:20)
[2018-06-24] MEDS: LIDOCAINE 5% (700 MG) TRANSDERMAL ADH..PATCH TP SCH (19:20)
--- NOTE | 2018-06-24 19:47 | PDOC H&P ---
History of Present Illness Admission Date/PCP: 06/24/18 18:11 MARISOL IRELAND MD Patient complains of: falls, syncope, low blood pressures History of Present Illness: WOODROW HAYS is a 78 year old female with ESRD, chronic hypotension on midodrine, CAD with prior stenting in 2012, history of ruptured colon with subsequent reversal of ileostomy, reports questionable history of CHF but last EF on record is 62% who was sent from Dr. Churchill's office due to low blood pressures. Family is on bedside. Patient has been having low blood pressures more than her usual in the past week. She is on midodrine during dialysis days MWF. She says her last dialysis was last Thursday because her BP went to the 40 systolic per daughters. She also passed out for a few minutes last Thursday during dialysis with the low blood pressure and regained consciousness after 10 minutes. She was not able to complete her HD last Thursday. She was supposed to get dialysis yesterday too but she fell and had dizziness and was again noted to have low BP hence dialysis was deferred. She went to the nephrology clinic today where here BP was noted to be 88/40 hence was sent to the ER. Upon encounter, she is comfortable and denies acute complaint. She denies chest pain or SOB. Blood pressure has recovered to 95/45. She does admit to having poor oral intake. Denies fever or chills. She does report of increasing pedal edema after she has missed her dialysis. Past Medical History Cardiac Medical History: Reports: Coronary Artery Disease, Myocardial Infarction - no mi. 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, Renal/ Medical History: Reports: End Stage Renal Disease Musculoskeltal Medical History: Reports: Arthritis - GENERALIZED Hematology: Denies: Anemia Past Surgical History Past Surgical History: Reports: Cardiac Catheterization - 1992, Cholecystectomy, Hysterectomy, Orthopedic Surgery - total left hip-2000, Vascular Surgery Social History Smoking Status: Never Smoker Family History Family History: Reviewed & Not Pertinent Parental Family History Reviewed: Yes Children Family History Reviewed: No Sibling(s) Family History Reviewed.: No Medication/Allergy Home Medications: Aspirin [Ecotrin 81 mg EC Tablet] 81 mcg PO DAILY 01/09/17 Bumetanide [Bumex 1 mg Tablet] 1 mg PO Q12 01/09/17 Zolpidem Tartrate [Ambien] 10 mg PO QHS 01/09/17 Beclomethasone Dipropionate [Qvar] 1 - 2 inh IH BID PRN 08/13/17 Buprenorphine 1 each TD Q7D 08/13/17 Calcium Acetate [Phoslo 667 Mg Capsule] 667 mg PO TID 08/13/17 Clopidogrel Bisulfate [Plavix 75 mg Tablet] 75 mg PO DAILY 08/13/17 Estrogens, Conjugated [Premarin 0.45 mg Tablet] 0.45 mg PO DAILY 08/13/17 Hydralazine HCl 50 mg PO TID 08/13/17 Levalbuterol Tartrate [Xopenex Hfa] 90 mcg IH Q4H PRN 08/13/17 Levothyroxine Sodium 112 mcg PO DAILY 08/13/17 Liothyronine Sodium 10 mcg PO DAILY 08/13/17 Magnesium Oxide [Mag-Ox 400 mg Tablet] 400 mg PO DAILY 08/13/17 Megestrol Acetate [Megace Es] 20 ml PO DAILY 08/13/17 Metoprolol Tartrate 25 mg PO BID 08/13/17 Midodrine HCl [Proamatine 5 Mg Tablet] 5 mg PO Q72HP PRN 08/13/17 Nitroglycerin [Nitrostat 0.4 mg (1/150 Gr) Tabs 25/Bottle] 25 tab SL PRN PRN 08/13/17 Oxymorphone HCl 10 mg PO QID PRN 08/13/17 Pantoprazole Sodium 40 mg PO DAILY 08/13/17 Pramipexole Di-HCl [Mirapex 0.5 Mg Tablet] 0.5 mg PO QHS 08/13/17 Rosuvastatin Calcium 5 mg PO DAILY 08/13/17 Vit B Comp No.3/Folic/C/Biotin [Alice-Sharmaine Rx Tablet] 1 each PO DAILY 08/13/17 Allergies/Adverse Reactions: No Known Allergies Allergy (Verified 06/24/18 13:29) Review of Systems All systems: reviewed and no additional remarkable complaints except as stated - as mentioned in HPI Physical Exam Vital Signs: Temp Pulse Resp BP Pulse Ox 97.8 F 15 97/45 L 100 06/24/18 17:01 06/24/18 17:01 06/24/18 17:01 06/24/18 16:26 Intake & Output 06/23/18 06/24/18 06/25/18 06:59 06:59 06:59 Weight 135 lb General appearance: PRESENT: no acute distress, well-developed, well-nourished Head exam: PRESENT: atraumatic, normocephalic Eye exam: PRESENT: conjunctiva pink, EOMI, PERRLA. ABSENT: scleral icterus Ear exam: PRESENT: normal external ear exam Mouth exam: PRESENT: moist, tongue midline Neck exam: ABSENT: carotid bruit, JVD, lymphadenopathy, thyromegaly Respiratory exam: PRESENT: clear to auscultation naeem. ABSENT: rales, rhonchi, wheezes Cardiovascular exam: PRESENT: RRR. ABSENT: diastolic murmur, rubs, systolic murmur GI/Abdominal exam: PRESENT: normal bowel sounds, soft. ABSENT: distended, guarding, mass, organolmegaly, rebound, tenderness Rectal exam: PRESENT: deferred Extremities exam: PRESENT: +2 edema Neurological exam: PRESENT: alert, awake, oriented to person, oriented to place, oriented to time, CN II-XII grossly intact. ABSENT: motor sensory deficit Results Laboratory Results: 06/24/18 14:47 06/24/18 16:20 06/24/18 06/24/18 06/24/18 14:47 14:47 16:20 WBC 8.9 RBC 2.50 L Hgb 8.1 L Hct 25.0 L MCV 100 H MCH 32.5 MCHC 32.5 RDW 16.4 H Plt Count 304 Seg Neutrophils % 87.8 H Lymphocytes % 5.2 L Monocytes % 5.9 Eosinophils % 0.5 Basophils % 0.6 Absolute Neutrophils 7.8 Absolute Lymphocytes 0.5 Absolute Monocytes 0.5 Absolute Eosinophils 0.0 Absolute Basophils 0.1 Sodium Cancelled 139.7 Potassium Cancelled 4.0 Chloride Cancelled 96 L Carbon Dioxide Cancelled 30 Anion Gap Cancelled 14 BUN Cancelled 67 H Creatinine Cancelled 6.63 H Est GFR ( Amer) Cancelled 7 L Est GFR (Non-Af Amer) Cancelled 6 L Glucose Cancelled 92 Calcium Cancelled 9.2 Total Bilirubin Cancelled 0.8 AST Cancelled 64 H ALT Cancelled 34 Alkaline Phosphatase Cancelled 125 Total Protein Cancelled 5.3 L Albumin Cancelled 2.9 L 06/24/18 06/24/18 14:47 16:20 Troponin I Cancelled 0.415 Impressions: Femur X-Ray 06/24/18 13:25 IMPRESSION: NEGATIVE STUDY OF THE LEFT FEMUR. NO RADIOGRAPHIC EVIDENCE OF ACUTE INJURY. Chest X-Ray 06/24/18 13:26 IMPRESSION: Moderate cardiomegaly. No acute findings Lower Extremity CT 06/24/18 14:50 IMPRESSION: No fracture. Assessment & Plan - Diagnosis (1) Syncope Qualifiers: Syncope type: unspecified Qualified Code(s): R55 - Syncope and collapse Is this a current diagnosis for this admission?: Yes Plan: Likely related to her hypotension. (2) Hypotension Is this a current diagnosis for this admission?: Yes Plan: Blood pressures have spontaneously improved to 95/45. Will restart midodrine and will closely monitor blood pressure response. She does not appear to be septic but will do further work up for her hypotension including blood culture. Will also order an echocardiogram. (3) Elevated troponin Is this a current diagnosis for this admission?: Yes Plan: Patient does have CAD but elevated troponin is likely more related to ESRD and demand ischemia from hypotension. EKG is normal. She is not complaining of any chest pain or SOB. (4) ESRD (end stage renal disease) Is this a current diagnosis for this admission?: Yes Plan: Will consult nephrology. - Time Time Spent: 30 to 50 Minutes
--- NOTE | 2018-06-24 22:08 | EKG REPORT ---
SEVERITY:- ABNORMAL ECG - SINUS RHYTHM NONSPECIFIC INTRAVENTRICULAR CONDUCTION DELAY MINIMAL ST DEPRESSION, LATERAL LEADS : Confirmed by: Guanako Villa 24-Jun-2018 22:07:21
[2018-06-24] MEDS: HEPARIN SOD (PORCINE) 5,000 UNIT/ML 1 ML SYRINGE SUBCUT SCH (22:28)
[2018-06-24] MEDS ORDERED: NOREPINEPHRINE BITARTRATE INJ/PF 4 MG/4 ML SDV IV ONE (23:11)
[2018-06-24] MEDS: DEXTROSE 5%-WATER 250 ML with NOREPINEPHRINE BITARTRATE 4 MG IV PRN ×2 (23:18)
[2018-06-25] MEDS: CALCIUM ACETATE 667 MG CAPSULE PO SCH ×3 (08:15→15:00)
[2018-06-25] MEDS: MIDODRINE HCL 5 MG TABLET PO SCH ×3 (08:15→17:03)
[2018-06-25] MEDS: DEXTROSE 5%-WATER 250 ML with NOREPINEPHRINE BITARTRATE 4 MG IV PRN ×4 (08:50→16:47)
[2018-06-25] MEDS: ASPIRIN 81 MG TABLET, ENT COATED PO SCH (09:19)
[2018-06-25] MEDS: ASPIRIN 81 MG TABLET, CHEWABLE PO SCH (09:19)
[2018-06-25] MEDS: HEPARIN SOD (PORCINE) 5,000 UNIT/ML 1 ML SYRINGE SUBCUT SCH ×2 (09:19→22:31)
--- NOTE | 2018-06-25 09:59 | PDOC PROGRESS REPORT ---
Subjective Progress Note for:: 06/25/18 Subjective:: This is a 78 year old female with ESRD, chronic hypotension on midodrine, CAD with prior stenting in 2012, history of ruptured colon with subsequent reversal of ileostomy, reports questionable history of CHF but last EF on record is 62% who was sent from Dr. Churchill's office due to low blood pressures. Family is on bedside. Patient has been having low blood pressures more than her usual in the past week. She is on midodrine during dialysis days MW. She says her last dialysis was last Thursday because her BP went to the 40 systolic per daughters. She also passed out for a few minutes last Thursday during dialysis with the low blood pressure and regained consciousness after 10 minutes. She was not able to complete her HD last Thursday. She was supposed to get dialysis yesterday too but she fell and had dizziness and was again noted to have low BP hence dialysis was deferred. She went to the nephrology clinic today where here BP was noted to be 88/40 hence was sent to the ER. Upon encounter, she is comfortable and denies acute complaint. She denies chest pain or SOB. Blood pressure has recovered to 95/45. She does admit to having poor oral intake. Denies fever or chills. She does report of increasing pedal edema after she has missed her dialysis. 06/25: Patient was started on low dose levophed last night as her BP dropped to the 80/40s again. She was asymptomatic. Upon encounter this morning, she is comfortable eating her breakfast and denies any acute complaint. Leveophed at 8 mics. Blood pressures in the 100/50s. Reason For Visit: HYPOTENSION,ELEVATED TROPONIN Physical Exam Vital Signs: Temp Pulse Resp BP Pulse Ox 96.1 F L 56 L 21 H 120/42 L 98 06/25/18 08:00 06/25/18 08:07 06/25/18 08:19 06/25/18 08:19 06/25/18 08:19 Intake & Output 06/24/18 06/25/18 06/26/18 06:59 06:59 06:59 Intake Total 59 204 Output Total 0 0 Balance 59 204 Weight 125 lb 7.088 oz General appearance: PRESENT: no acute distress, well-developed, well-nourished Head exam: PRESENT: atraumatic, normocephalic Eye exam: PRESENT: conjunctiva pink, EOMI, PERRLA. ABSENT: scleral icterus Ear exam: PRESENT: normal external ear exam Mouth exam: PRESENT: moist, tongue midline Neck exam: ABSENT: carotid bruit, JVD, lymphadenopathy, thyromegaly Respiratory exam: PRESENT: clear to auscultation naeem. ABSENT: rales, rhonchi, wheezes Cardiovascular exam: PRESENT: RRR. ABSENT: diastolic murmur, rubs, systolic murmur Pulses: PRESENT: normal dorsalis pedis pul GI/Abdominal exam: PRESENT: normal bowel sounds, soft. ABSENT: distended, guarding, mass, organolmegaly, rebound, tenderness Rectal exam: PRESENT: deferred Extremities exam: PRESENT: +2 edema Neurological exam: PRESENT: alert, awake, oriented to person, oriented to place, oriented to time, oriented to situation, CN II-XII grossly intact. ABSENT: motor sensory deficit Results Laboratory Results: 06/24/18 14:47 06/24/18 16:20 06/24/18 06/24/18 06/24/18 14:47 14:47 16:20 WBC 8.9 RBC 2.50 L Hgb 8.1 L Hct 25.0 L MCV 100 H MCH 32.5 MCHC 32.5 RDW 16.4 H Plt Count 304 Seg Neutrophils % 87.8 H Lymphocytes % 5.2 L Monocytes % 5.9 Eosinophils % 0.5 Basophils % 0.6 Absolute Neutrophils 7.8 Absolute Lymphocytes 0.5 Absolute Monocytes 0.5 Absolute Eosinophils 0.0 Absolute Basophils 0.1 Sodium Cancelled 139.7 Potassium Cancelled 4.0 Chloride Cancelled 96 L Carbon Dioxide Cancelled 30 Anion Gap Cancelled 14 BUN Cancelled 67 H Creatinine Cancelled 6.63 H Est GFR ( Amer) Cancelled 7 L Est GFR (Non-Af Amer) Cancelled 6 L Glucose Cancelled 92 Calcium Cancelled 9.2 Total Bilirubin Cancelled 0.8 AST Cancelled 64 H ALT Cancelled 34 Alkaline Phosphatase Cancelled 125 Total Protein Cancelled 5.3 L Albumin Cancelled 2.9 L TSH 06/24/18 16:20 WBC RBC Hgb Hct MCV MCH MCHC RDW Plt Count Seg Neutrophils % Lymphocytes % Monocytes % Eosinophils % Basophils % Absolute Neutrophils Absolute Lymphocytes Absolute Monocytes Absolute Eosinophils Absolute Basophils Sodium Potassium Chloride Carbon Dioxide Anion Gap BUN Creatinine Est GFR ( Amer) Est GFR (Non-Af Amer) Glucose Calcium Total Bilirubin AST ALT Alkaline Phosphatase Total Protein Albumin TSH 1.60 06/24/18 06/24/18 06/24/18 14:47 16:20 19:25 Troponin I Cancelled 0.415 0.545 Impressions: Femur X-Ray 06/24/18 13:25 IMPRESSION: NEGATIVE STUDY OF THE LEFT FEMUR. NO RADIOGRAPHIC EVIDENCE OF ACUTE INJURY. Chest X-Ray 06/24/18 13:26 IMPRESSION: Moderate cardiomegaly. No acute findings Lower Extremity CT 06/24/18 14:50 IMPRESSION: No fracture. Assessment & Plan - Diagnosis (1) Syncope Qualifiers: Syncope type: unspecified Qualified Code(s): R55 - Syncope and collapse Is this a current diagnosis for this admission?: Yes Plan: Likely related to her hypotension. Will recheck a carotid doppler as she does have some stenosis in her dopplers in 2014. (2) Hypotension Is this a current diagnosis for this admission?: Yes Plan: Blood pressures have spontaneously improved to 95/45. Will restart midodrine and will closely monitor blood pressure response. She does not appear to be septic but will do further work up for her hypotension including blood culture. Will al so order an echocardiogram. 06/25: Patient was started on low dose levophed last night as her BP dropped to the 80/40s again. She was asymptomatic. Upon encounter this morning, she is comfortable eating her breakfast and denies any acute complaint. Leveophed at 8 mics. Blood pressures in the 100/50s. TSH normal and AM cortisol is actually elevated. Continue midodrine. Blood culture pending. Will try to wean off levophed. (3) Elevated troponin Is this a current diagnosis for this admission?: Yes Plan: Patient does have CAD but elevated troponin is likely more related to ESRD and demand ischemia from hypotension. EKG is normal. She is not complaining of any chest pain or SOB. (4) ESRD (end stage renal disease) Is this a current diagnosis for this admission?: Yes Plan: Will await further nephrology recommendations. - Time Time Spent with patient: 25-34 minutes
[2018-06-25] MEDS ORDERED: NORMAL SALINE 1000 ML 1,000 ML IV PRN (12:07)
[2018-06-25] MEDS ORDERED: EPOETIN ALFA INJ 40000 UNIT/1 ML (RENAL) IV PRN (12:07)
[2018-06-25] MEDS: ALBUMIN HUMAN 12.5 GM/50 ML RTUINJ IV PRN ×2 (12:21→13:22)
--- NOTE | 2018-06-25 13:36 | RADIOLOGY REPORT (SQ) ---
EXAM DESCRIPTION: CAROTID DOPPLER COMPLETED DATE/TIME: 06/25/2018 1:23 pm REASON FOR STUDY: syncope I50.32 CHRONIC DIASTOLIC (CONGESTIVE) HEART FAILURE COMPARISON: 05/29/2014 TECHNIQUE: Grayscale ultrasound, Doppler velocity and spectra, and color Doppler images acquired of the extra-cranial carotid and vertebral arteries. Images stored on PACS. LIMITATIONS: None. FINDINGS: RIGHT CAROTID CCA Velocities: Within normal limits. ICA Velocities Peak systolic 2.69 m/s. End diastolic 0.63 m/s. Proximal ICA/CCA peak systolic ratio 3.8. Complex heterogeneous plaque in the carotid bulb and proximal ICA. LEFT CAROTID CCA Velocities: Within normal limits. ICA Velocities Peak systolic 3.32 m/s. End diastolic 0.71 m/s. Proximal ICA/CCA peak systolic ratio 5.8. Complex heterogeneous plaque in the carotid bulb and proximal ICA. VERTEBRAL ARTERIES: Antegrade flow. Normal waveforms. SUBCLAVIAN ARTERIES: No finding. OTHER: No other significant finding. IMPRESSION: Greater than 70% stenosis in the right and left internal carotid arteries. This has pro gressed from prior study. COMMENT: Quality ID #[id number]: Velocity criteria are extrapolated from the diameter data as defined by t he Society of Radiologists in Ultrasound Consensus Conference. Radiology 2003: 229; 340-346. TECHNICAL DOCUMENTATION: JOB ID: [id number] [employer]- All Rights Reserved Reading location - IP/workstation name: [email or web address]
[2018-06-25] MEDS: ACETAMINOPHEN 325 MG TABLET PO PRN ×2 (16:21→22:30)
--- NOTE | 2018-06-25 17:24 | PDOC CONSULTATION ---
Consultation Consult Date: 06/25/18 Attending physician:: ZOE VELA Consult reason:: I was asked to see the patient to supervise dialysis and for hypotension. History of Present Illness Admission Date/PCP: 06/24/18 18:11 MARISOL PARKER MD History of Present Illness: WOODROW HAYS is a 78 year old female known to me with history of end-stage renal disease on maintenance hemodialysis on Mondays, Wednesdays and Fridays, chronic intradialytic hypotension with intermittent lower extremity edema, and coronary artery disease who was sent to the emergency room from [facility] yesterday due to hypotension. Patient's last dialysis treatment was last Thursday 4 days ago. During that dialysis treatment the patient's blood pressure went down as low was systolic blood pressure of 49. Ultrafiltration was then discontinued. Prior to that day on Thursday patient related that she slid to the commode and sustained bruises on her legs. She said she is having soreness in the left side of her hips and legs so on Thursday she could not move and was not able to go to dialysis treatment. To make up for her missed dialysis on Thursday she went to [facility] dialysis yesterday and was found to have low blood pressure of 88/40 even before initiating dialysis treatment. So patient was then sent to the em ergency room. Blood pressure went up to about 95/40 in the emergency room. She was initially admitted to the floor but then last night her blood pressure went down to 80/40 so she was transferred to the ICU and was started on Levoped. Today patient is comfortably lying down in bed and complains of some minimal shortness of breath. Her blood pressure is still low but better than yesterday while on Levoped. She denies any chest pains, nausea, vomiting no dizziness. She is eating fine. Her last echocardiogram with Dr. Parker's office revealed left ventricular ejection fraction of 63% with grade 1 diastolic dysfunction, moderate tricuspid regurgitation and mild pulmonary hypertension. Today an echocardiogram and carotid Doppler has been ordered. A cortisol level this morning is actually elevated at 39. At [facility], we were having difficulty with ultrafiltration to relieve the patient's lower extremity edema due to the patient's intradialytic hypotension. We adjusted her treatment and tried all kinds of sodium and UF profiling but still did not work. Her albumin has also been chronically low and this is probably part of the problem. We continue to encourage the patient to increase her protein intake but it does not change. I discussed the option of peritoneal dialysis with the patient today. I also discussed this with her daughter Jessie 2 days ago over the phone. This afternoon I saw the patient during dialysis treatment. We needed to go up on her Levoped so that she can maintain a blood pressure for ultrafiltration. We initially plan to get at least 4 L of ultrafiltration the patient's blood pressure went down a little bit even on the Levoped so we backed off and just took about 3 L of ultrafiltration throughout dialysis treatment with the PD which the patient tolerated. Past Medical History Cardiac Medical History: Reports: Coronary Artery Disease, Hyperlipidemia, Myocardial Infarction - no mi. 2 stents Pulmonary Medical History: Reports: Pneumonia Endocrine Medical History: Reports: Diabetes Mellitus Type 2 - borderline in the past, Renal/ Medical History: Reports: End Stage Renal Disease, Renal Osteodystropy GI Medical History: Reports: Other - History of GI bleed, peritonitis, colon rupture Musculoskeltal Medical History: Reports: Arthritis - GENERALIZED worse on her hips, cardiac clearance note given for hip replace Hematology Medical History: Reports Anemia of Chronic Kidney Disease Past Surgical History Past Surgical History: Reports: Cardiac Catheterization - 1992, Cholecystectomy, Dialysis Access Surgery AVF, Hysterectomy, Orthopedic Surgery - total left hip arthroplasty-2000, Other - Surgery with colostomy followed by colostomy closure Social History Information Source: Patient Lives with: Alone Smoking Status: Former Smoker Frequency of Alcohol Use: None Hx Recreational Drug Use: No - Advance Directive Resuscitation Status: Full Code Family History Family History: CAD - And CHF in her mother Parental Family History Reviewed: Yes Children Family History Reviewed: Yes Sibling(s) Family History Reviewed.: Yes Medication/Allergy Home Medications: Aspirin [Ecotrin 81 mg EC Tablet] 81 mg PO DAILY 01/09/17 Bumetanide [Bumex 1 mg Tablet] 0.5 mg PO Q12 01/09/17 Zolpidem Tartrate [Ambien] 10 mg PO QHS 01/09/17 Calcium Acetate [Phoslo 667 Mg Capsule] 667 mg PO TID 08/13/17 Liothyronine Sodium 10 mcg PO DAILY 08/13/17 Midodrine HCl [Proamatine 5 Mg Tablet] 10 mg PO BIDP PRN 08/13/17 Pantoprazole Sodium 40 mg PO DAILY 04/19/18 Pramipexole Di-HCl [Mirapex 0.5 Mg Tablet] 0.5 mg PO QHS 08/13/17 Rosuvastatin Calcium 5 mg PO DAILY 08/13/17 Vit B Comp No.3/Folic/C/Biotin [Alice-Sharmaine Rx Tablet] 1 each PO DAILY 08/13/17 Estrogens, Conjugated [Premarin 0.45 mg Tablet] 0.45 mg PO DAILY 06/24/18 Fenofibric Acid (Choline) [Fenofibric Acid] 135 mg PO DAILY 06/24/18 Furosemide [Lasix 40 mg Tablet] 40 mg PO Q12 06/24/18 Hydromorphone HCl [Dilaudid] 4 mg PO QIDP PRN 06/24/18 Levothyroxine Sodium [Synthroid] 125 mcg PO DAILY 06/24/18 Metolazone [Zaroxolyn 5 mg Tablet] 5 mg PO DAILY 06/24/18 Allergies/Adverse Reactions: No Known Allergies Allergy (Verified 06/24/18 13:29) Review of Systems All systems: reviewed and no additional remarkable complaints except as stated Review of Systems: Constitutional: ABSENT: chills, fatigue, fever(s), headache(s), weight gain, weight loss Eyes: ABSENT: visual disturbances Ears: ABSENT: hearing changes Cardiovascular: ABSENT: chest pain, orthropnea, palpitations; admits shortness of breath and lower extremity edema Respiratory: ABSENT: cough, dyspnea, hemoptysis Gastrointestinal: ABSENT: abdominal pain, constipation, diarrhea, hematemesis, hematochezia, nausea, vomiting Genitourinary: ABSENT: dysuria, hematuria Musculoskeletal: ABSENT: joint swelling; admits pain on the left hip and left leg areas Integumentary: ABSENT: rash, wounds; admits bruises from the fall Neurological: ABSENT: abnormal gait, abnormal speech, confusion, dizziness, focal weakness, numbness, syncope Psychiatric: ABSENT: anxiety, depression Endocrine: ABSENT: cold intolerance, heat intolerance, polydipsia, polyuria Hematologic/Lymphatic: ABSENT: easy bleeding, easy bruising, lymphadenopathy Physical Exam Vital Signs: Temp Pulse Resp BP Pulse Ox 96.1 F L 71 11 L 125/46 L 100 06/25/18 08:00 06/25/18 10:00 06/25/18 12:00 06/25/18 11:49 06/25/18 12:00 Intake & Output 06/24/18 06/25/18 06/26/18 06:59 06:59 06:59 Intake Total 59 267 Output Total 0 0 Balance 59 267 Weight 56.9 kg Vitals during dialysis: Blood pressure 118/55, heart rate of 72, oxygenation of 98%, respiration of 13, blood flow rate of 350 mL/min, dialysate flow rate of 800 mL/min. Exam: General appearance: No acute distress, cooperative, well-developed, well- nourished Head exam: PRESENT: atraumatic, normocephalic Eye exam: PRESENT: Conjunctiva slightly pale, EOMI, PERRLA. ABSENT: conjunctival injection, scleral icterus Mouth exam: PRESENT: moist, neck supple, tongue midline Neck exam: PRESENT: full ROM. Positive carotid bruit bilaterally ABSENT: JVD, lymphadenopathy, thyromegaly Respiratory exam: PRESENT: Diminished to auscultation bilaterally. ABSENT: rales, rhonchi, stridor, wheezes Cardiovascular exam: PRESENT: RRR, +S1, +S2. Grade 2/6 systolic murmur Pulses: PRESENT: normal radial pulses, normal dorsalis pedis pulses GI/Abdominal exam: PRESENT: normal bowel sounds, soft. ABSENT: guarding, mass, tenderness Rectal exam: Deferred Extremities exam: PRESENT: full ROM. Grade 2 bilateral lower extremity pitting edema ABSENT: calf tenderness Musculoskeletal: PRESENT: full ROM. ABSENT: deformity Neurological exam: PRESENT: alert, Awake, Oriented to person, Oriented to place, Oriented to time, reflexes normal, CN II-XII grossly intact. ABSENT: motor sensory deficit Psychiatric exam: PRESENT: appropriate affect, normal mood. ABSENT: homicidal ideation, suicidal ideation Skin exam: PRESENT: intact, dry, warm. Positive bruises on her bilateral lower extremities ABSENT: rash Results Laboratory Results: 06/24/18 14:47 06/24/18 16:20 06/24/18 06/24/18 06/24/18 14:47 14:47 16:20 WBC 8.9 RBC 2.50 L Hgb 8.1 L Hct 25.0 L MCV 100 H MCH 32.5 MCHC 32.5 RDW 16.4 H Plt Count 304 Seg Neutrophils % 87.8 H Lymphocytes % 5.2 L Monocytes % 5.9 Eosinophils % 0.5 Basophils % 0.6 Absolute Neutrophils 7.8 Absolute Lymphocytes 0.5 Absolute Monocytes 0.5 Absolute Eosinophils 0.0 Absolute Basophils 0.1 Sodium Cancelled 139.7 Potassium Cancelled 4.0 Chloride Cancelled 96 L Carbon Dioxide Cancelled 30 Anion Gap Cancelled 14 BUN Cancelled 67 H Creatinine Cancelled 6.63 H Est GFR ( Amer) Cancelled 7 L Est GFR (Non-Af Amer) Cancelled 6 L Glucose Cancelled 92 Calcium Cancelled 9.2 Total Bilirubin Cancelled 0.8 AST Cancelled 64 H ALT Cancelled 34 Alkaline Phosphatase Cancelled 125 Total Protein Cancelled 5.3 L Albumin Cancelled 2.9 L TSH 06/24/18 16:20 WBC RBC Hgb Hct MCV MCH MCHC RDW Plt Count Seg Neutrophils % Lymphocytes % Monocytes % Eosinophils % Basophils % Absolute Neutrophils Absolute Lymphocytes Absolute Monocytes Absolute Eosinophils Absolute Basophils Sodium Potassium Chloride Carbon Dioxide Anion Gap BUN Creatinine Est GFR ( Amer) Est GFR (Non-Af Amer) Glucose Calcium Total Bilirubin AST ALT Alkaline Phosphatase Total Protein Albumin TSH 1.60 06/24/18 06/24/18 06/24/18 14:47 16:20 19:25 Troponin I Cancelled 0.415 0.545 Impressions: Femur X-Ray 06/24/18 13:25 IMPRESSION: NEGATIVE STUDY OF THE LEFT FEMUR. NO RADIOGRAPHIC EVIDENCE OF ACUTE INJURY. Chest X-Ray 06/24/18 13:26 IMPRESSION: Moderate cardiomegaly. No acute findings Lower Extremity CT 06/24/18 14:50 IMPRESSION: No fracture. Assessment & Plan - Diagnosis (1) ESRD (end stage renal disease) Is this a current diagnosis for this admission?: Yes Plan: We will do dialysis today for 3 hours, using the patient's AV fistula, with 2 potassium bath, blood flow rate of 450 mL per minute, dialysate flow rate of 800 mL per minute, ultrafiltration 3-4 L as tolerated, no heparin and Procrit with 40,000 units during dialysis intravenously. Patient will be monitored throughout dialysis treatment and we will adjust treatment and ultrafiltration as necessary. Levoped drip will be adjusted accordingly so that we can get enough ultrafiltration. I will also give the patient 25 g of IV albumin prior to hemodialysis treatment today. Since it has been difficult with ultrafiltration as an outpatient during her dialysis treatments for the last couple of months I have suggested to her to have peritoneal dialysis. I have actually spoken to her daughter Jessie who lives in [place] about this and she is very much willing to help the patient with the patient has to move to [place]. According to Jessie the patient has been resistant to the idea of her moving to [place] and giving up her independence here. Today I spoke to the patient regarding this again and it seems like the patient is considering it very seriously but he still tells me that she will think it over. I also talked the patient regarding CODE STATUS and she has been full code. I explained to her what it means to have full resuscitation and a DO NOT RESUSCITATE CODE STATUS. Patient could not decide at this time yet. So at this time the patient will remain to be full code. I discussed this with her daughter Jessie to when I spoke to her 2 days ago. I encouraged Jessie to discuss CODE STATUS with her mother given her clinical condition. Today 1 of her daughters, Hilda is also on bedside and I discussed the PD option and CODE STATUS as well so that they can discuss it with her mother. (2) Hypotension Is this a current diagnosis for this admission?: Yes Plan: Chronic and mostly during intradialytic. This time the patient was hypotensive even before dialysis. Cortisol was elevated. No evidence of any infection at this time. Continue Levoped at this time. (3) Peripheral edema Is this a current diagnosis for this admission?: Yes Plan: This is been an ongoing issue for the last couple of months. Due to hypotension it has been difficult to do ultrafiltration during dialysis treatments as an outpatient. We will try to do as much ultrafiltration that she can tolerate with the Levoped going while here in the hospital. We will resume her Bumex while here in the hospital and see if it will help as well. (4) Hypoalbuminemia due to protein-calorie malnutrition Is this a current diagnosis for this admission?: Yes Plan: We will give her IV albumin prior to dialysis today. (5) Anemia in chronic kidney disease (CKD) Is this a current diagnosis for this admission?: Yes Plan: We will give Procrit during dialysis treatment is necessary. - Notes Notes: Discussed the case with Dr. Vela last night. Thank you very much for this consultation. We will follow patient with you. Discussed with patient and her daughter at bedside about her treatment plan. Also encouraged him to think about peritoneal dialysis and CODE STATUS. - Time Time Spent: 50 to 70 Minutes
--- NOTE | 2018-06-25 19:33 | XCELERA REPORT ---
[address] [address] Transthoracic Echocardiogram Report Name: WOODROW HAYS Age: 78 yrs Gender: Female : 1940 Patient Status: Inpatient Patient Location: ICU^606^A Study Date: 06/25/2018 10:59 AM Height: 62 in Weight: 135 lb BSA: 1.6 m2 Reason For Study: CHF, Hypotension Ordering Physician: ZOE COTA Performed By: Thanh Hameed Interpretation Summary No post pericardial effusion Mild calcific with mild AR with borderline LV dilatation. MPG 12 mm Hg. Mod mitral annular calcification, mild MR but severe LA enlargement, SHILOH 54.3 LV no hypertrophy, hypokinetic IVS, inferoseptal wall, and inferior wall. LVEF >50%. TR mod with moderate pulm hypertension .no RH enlargement. MMode/2D Measurements & Calculations RVDd: 3.1 cm LVIDd: 5.7 cm FS: 30.7 % Ao root diam: 2.9 cm IVSd: 0.94 cm LVIDs: 3.9 cm EDV(Teich): Ao root area: LVPWd: 0.86 cm 157.9 ml ESV(Teich): 66.9 ml 6.8 cm2 LA dimension: 4.4 cm EF(Teich): 57.6 % LVOT diam: 2.1 cmLVLd ap4: 8.2 cm SV(MOD-sp4): LVOT area: EDV(MOD-sp4): 69.0 ml 3.5 cm2 140.0 ml LVLs ap4: 7.1 cm ESV(MOD-sp4): 71.0 ml EF(MOD-sp4): 49.3 % Doppler Measurements & Calculations MV E max karla: MV V2 max: MV P1/2t max karla: Ao V2 max: 110.6 cm/sec 120.2 cm/sec 120.2 cm/sec 240.5 cm/sec MV A max karla: MV max PG: MV P1/2t: 76.7 msec Ao max P.2 cm/sec 5.8 mmHg 23.1 mmHg MV E/A: 1.1 MV V2 mean: MVA(P1/2t): 2.9 cm2 Ao V2 mean: 83.3 cm/sec MV dec slope: 160.4 cm/sec 459.0 cm/sec2 MV mean PG: MV dec time: 0.17 secAo mean P.0 mmHg 11.8 mmHg MV V2 VTI: Ao V2 VTI: 56.5 cm 34.0 cm ABIOLA(I,D): 1.5 cm2 MVA(VTI): 2.5 cm2 ABIOLA(V,D): 1.3 cm2 AI max karla: LV V1 max PG: SV(LVOT): 86.4 ml PA V2 max: 321.9 cm/sec 3.3 mmHg 175.1 cm/sec AI max PG: LV V1 mean PG: PA max P.4 mmHg 2.3 mmHg 12.3 mmHg AI dec slope: LV V1 max: 287.2 cm/sec2 91.3 cm/sec AI P1/2t: LV V1 mean: 328.3 msec 72.0 cm/sec LV V1 VTI: 24.3 cm PI end-d karla: TR max karla: AV P1/2t-pr_phl: MV P1/2t-pr_phl: 171.0 cm/sec 333.9 cm/sec 328.3 msec 76.7 msec TR max P.6 mmHg Left Ventricle The left ventricle is borderline dilated. There is normal left ventricular wall thickness. LV EF is 50%. Doppler measurements suggest normal left ventricular diastolic function. There is anteroseptal wall mild hypokinesis. There is inferoseptal wall moderate hypokinesis. There is inferior wall mild hypokinesis. There is no thrombus. Right Ventricle Borderline right ventricular enlargement. Atria The right atrium is normal in size. The left atrium is severely dilated. SHILOH =54. A patent foramen ovale is suspected. Mitral Valve The mitral valve is normal in structure and function. There is moderate mitral annular calcification. There is no evidence of mitral valve prolapse. There is no mitral valve stenosis. There is a mild amount of mitral regurgitation. Aortic Valve The aortic valve is trileaflet. There is systolic doming of the aortic valve leaflets(s). The aortic valve is calcified. There is a peak gradient of 23 mm of Hg. MPG = 12 mm Hg. There is a mild amount of aortic regurgitation. Tricuspid Valve The tricuspid is normal in structure and function. There is no tricuspid stenosis. There is a moderate amount of tricuspid regurgitation. Best estimated RVSP is approximately 53 mm/Hg. Pulmonic Valve The pulmonic valve is normal in structure and function. There is a mild amount of pulmonic regurgitation. Great Vessels There is aortic root sclerosis/calcification. Effusions There is no pericardial effusion. I WMSI = 1.50 % Normal = 50 Segments Size X - Cannot 1 - Normal 2 - 3 - Akinetic4 - 1-2 small Interpret Hypokinetic Dyskinetic 3-5 moderate 5 - 6-14 large Aneurysmal 15-16 diffuse : ZOE COTA > Ramírez Parker
[2018-06-25] MEDS: LIDOCAINE 5% (700 MG) TRANSDERMAL ADH..PATCH TP SCH (20:09)
[2018-06-26] MEDS: ACETAMINOPHEN 325 MG TABLET PO PRN (06:23)
[2018-06-26] MEDS: DEXTROSE 5%-WATER 250 ML with NOREPINEPHRINE BITARTRATE 4 MG IV PRN ×2 (06:23)
[2018-06-26] MEDS: MIDODRINE HCL 5 MG TABLET PO SCH ×3 (08:05→19:25)
[2018-06-26] MEDS: CALCIUM ACETATE 667 MG CAPSULE PO SCH ×3 (08:05→16:39)
[2018-06-26] MEDS: TRAMADOL HCL 50 MG TABLET PO PRN ×3 (08:46→20:47)
[2018-06-26] MEDS: HEPARIN SOD (PORCINE) 5,000 UNIT/ML 1 ML SYRINGE SUBCUT SCH ×2 (10:36→21:20)
[2018-06-26] MEDS: ASPIRIN 81 MG TABLET, ENT COATED PO SCH (10:36)
[2018-06-26] MEDS: ASPIRIN 81 MG TABLET, CHEWABLE PO SCH (10:36)
--- NOTE | 2018-06-26 11:08 | PDOC PROGRESS REPORT ---
Subjective Progress Note for:: 06/26/18 Subjective:: This is a 78 year old female with ESRD, chronic hypotension on midodrine, CAD with prior stenting in 2012, history of ruptured colon with subsequent reversal of ileostomy, reports questionable history of CHF but last EF on record is 62% who was sent from Dr. Churchill's office due to low blood pressures. Family is on bedside. Patient has been having low blood pressures more than her usual in the past week. She is on midodrine during dialysis days MW. She says her last dialysis was last Thursday because her BP went to the 40 systolic per daughters. She also passed out for a few minutes last Thursday during dialysis with the low blood pressure and regained consciousness after 10 minutes. She was not able to complete her HD last Thursday. She was supposed to get dialysis yesterday too but she fell and had dizziness and was again noted to have low BP hence dialysis was deferred. She went to the nephrology clinic today where here BP was noted to be 88/40 hence was sent to the ER. Upon encounter, she is comfortable and denies acute complaint. She denies chest pain or SOB. Blood pressure has recovered to 95/45. She does admit to having poor oral intake. Denies fever or chills. She does report of increasing pedal edema after she has missed her dialysis. 3: Patient was started on low dose levophed last night as her BP dropped to the 80/40s again. She was asymptomatic. Upon encounter this morning, she is comfortable eating her breakfast and denies any acute complaint. Leveophed at 8 mics. Blood pressures in the 100/50s. 06/26: No acute event overnight. She got dialysis yesterday and required higher doses of Levophed. She is now down on Levophed at 8 mics. She is complaining of her chronic low back and hip pain. She is on PO oxymorphone at home. Will try tramadol and lidocaine patch today so as not to exacerbate her hypotension with opiates. She chest pain or SOB. Reason For Visit: HYPOTENSION,ELEVATED TROPONIN Physical Exam Vital Signs: Temp Pulse Resp BP Pulse Ox 97.5 F 68 17 108/40 L 100 06/26/18 10:00 06/26/18 10:00 06/26/18 10:47 06/26/18 10:47 06/26/18 10:47 Intake & Output 06/25/18 06/26/18 06/27/18 06:59 06:59 06:59 Intake Total 59 767 267 Output Total 0 3300 Balance 59 -2533 267 Weight 125 lb 7.088 oz General appearance: PRESENT: no acute distress, well-developed, well-nourished Head exam: PRESENT: atraumatic, normocephalic Eye exam: PRESENT: conjunctiva pink, EOMI, PERRLA. ABSENT: scleral icterus Ear exam: PRESENT: normal external ear exam Mouth exam: PRESENT: moist, tongue midline Neck exam: ABSENT: carotid bruit, JVD, lymphadenopathy, thyromegaly Respiratory exam: PRESENT: clear to auscultation naeem. ABSENT: rales, rhonchi, wheezes Cardiovascular exam: PRESENT: RRR. ABSENT: diastolic murmur, rubs, systolic murmur Pulses: PRESENT: normal dorsalis pedis pul GI/Abdominal exam: PRESENT: normal bowel sounds, soft. ABSENT: distended, guarding, mass, organolmegaly, rebound, tenderness Rectal exam: PRESENT: deferred Extremities exam: PRESENT: +2 edema Neurological exam: PRESENT: alert, awake, oriented to person, oriented to place, oriented to time, oriented to situation, CN II-XII grossly intact. ABSENT: motor sensory deficit Results Laboratory Results: 06/24/18 14:47 06/24/18 16:20 06/24/18 06/24/18 06/24/18 14:47 16:20 19:25 Troponin I Cancelled 0.415 0.545 Impressions: Femur X-Ray 06/24/18 13:25 IMPRESSION: NEGATIVE STUDY OF THE LEFT FEMUR. NO RADIOGRAPHIC EVIDENCE OF ACUTE INJURY. Chest X-Ray 06/24/18 13:26 IMPRESSION: Moderate cardiomegaly. No acute findings Lower Extremity CT 06/24/18 14:50 IMPRESSION: No fracture. Carotid Doppler Study 06/25/18 10:00 IMPRESSION: Greater than 70% stenosis in the right and left internal carotid arteries. This has progressed from prior study. Assessment & Plan - Diagnosis (1) Hypotension Is this a current diagnosis for this admission?: Yes Plan: Likely dialysis-related hypotension. 06/24: Blood pressures have spontaneously improved to 95/45. Will restart midodrine and will closely monitor blood pressure response. She does not appear to be septic but will do further work up for her hypotension including blood c ulture. Will also order an echocardiogram. 06/25: Patient was started on low dose levophed last night as her BP dropped to the 80/40s again. She was asymptomatic. Upon encounter this morning, she is co mfortable eating her breakfast and denies any acute complaint. Leveophed at 8 mics. Blood pressures in the 100/50s. TSH normal and AM cortisol is actually elevated. Continue midodrine. Blood culture pending. Will try to wean off levophed. 06/26: On Levophed at 8 mics. Will try to see if there's any benefit in increasing her midodrine to 10 mg tid. Continue to attempt weaning off levophed. Note nep hro recommendations to possibly switch her to peritoneal dialysis. (2) Syncope Qualifiers: Syncope type: unspecified Qualified Code(s): R55 - Syncope and collapse Is this a current diagnosis for this admission?: Yes Plan: Likely related to her dialysis related hypotension. Carotid doppler shows >70% stenosis in the ICAs. She will need further outpatient evaluation for this. (3) Elevated troponin Is this a current diagnosis for this admission?: Yes Plan: Patient does have CAD but elevated troponin is likely more related to ESRD and demand ischemia from hypotension. EKG is normal. She is not complaining of any chest pain or SOB. (4) ESRD (end stage renal disease) Is this a current diagnosis for this admission?: Yes Plan: Nephrology following.
[2018-06-26] MEDS: LIDOCAINE 5% (700 MG) TRANSDERMAL ADH..PATCH TP SCH (20:48)
[2018-06-27] MEDS: TRAMADOL HCL 50 MG TABLET PO PRN ×4 (02:33→21:46)
[2018-06-27] MEDS: CALCIUM ACETATE 667 MG CAPSULE PO SCH ×3 (08:11→16:18)
[2018-06-27] MEDS: MIDODRINE HCL 5 MG TABLET PO SCH ×3 (08:11→17:07)
[2018-06-27] MEDS: ASPIRIN 81 MG TABLET, CHEWABLE PO SCH (10:40)
[2018-06-27] MEDS: HEPARIN SOD (PORCINE) 5,000 UNIT/ML 1 ML SYRINGE SUBCUT SCH ×2 (10:41→21:16)
--- NOTE | 2018-06-27 14:00 | PDOC PROGRESS REPORT ---
Subjective Progress Note for:: 06/27/18 Subjective:: This is a 78 year old female with ESRD, chronic hypotension on midodrine, CAD with prior stenting in 2012, history of ruptured colon with subsequent reversal of ileostomy, reports questionable history of CHF but last EF on record is 62% who was sent from Dr. Churchill's office due to low blood pressures. Family is on bedside. Patient has been having low blood pressures more than her usual in the past week. She is on midodrine during dialysis days MWF. She says her last dialysis was last Thursday because her BP went to the 40 systolic per daughters. She also passed out for a few minutes last Thursday during dialysis with the low blood pressure and regained consciousness after 10 minutes. She was not able to complete her HD last Thursday. She was supposed to get dialysis yesterday too but she fell and had dizziness and was again noted to have low BP hence dialysis was deferred. She went to the nephrology clinic today where here BP was noted to be 88/40 hence was sent to the ER. Upon encounter, she is comfortable and denies acute complaint. She denies chest pain or SOB. Blood pressure has recovered to 95/45. She does admit to having poor oral intake. Denies fever or chills. She does report of increasing pedal edema after she has missed her dialysis. 3: Patient was started on low dose levophed last night as her BP dropped to the 80/40s again. She was asymptomatic. Upon encounter this morning, she is comfortable eating her breakfast and denies any acute complaint. Leveophed at 8 mics. Blood pressures in the 100/50s. 32: She got dialysis yesterday and required higher doses of Levophed. She is now down on Levophed at 8 mics. She is complaining of her chronic low back and hip pain. She is on PO oxymorphone at home. Will try tramadol and lidocaine [facility] today so as not to exacerbate her hypotension with opiates. She chest pain or SOB. 33: No acute event overnight. Blood pressures have improved and have remained stable after increasing midodrine to 10 mg tid. She has been off Levophed since yesterday afternoon. Her back and hip pain is well controlled with tramadol and lidocaine patch. She will be downgraded from ICU. Reason For Visit: HYPOTENSION,ELEVATED TROPONIN Physical Exam Vital Signs: Temp Pulse Resp BP Pulse Ox 96.2 F L 62 17 124/42 L 98 06/27/18 07:55 06/27/18 09:58 06/27/18 09:00 06/27/18 08:50 06/27/18 09:00 Intake & Output 06/26/18 06/27/18 06/28/18 06:59 06:59 06:59 Intake Total 767 645 Output Total 3300 0 Balance -2533 645 Weight 134 lb 7.712 oz General appearance: PRESENT: no acute distress, well-developed, well-nourished Head exam: PRESENT: atraumatic, normocephalic Eye exam: PRESENT: conjunctiva pink, EOMI, PERRLA. ABSENT: scleral icterus Ear exam: PRESENT: normal external ear exam Mouth exam: PRESENT: moist, tongue midline Neck exam: ABSENT: carotid bruit, JVD, lymphadenopathy, thyromegaly Respiratory exam: PRESENT: clear to auscultation naeem. ABSENT: rales, rhonchi, wheezes Cardiovascular exam: PRESENT: RRR. ABSENT: diastolic murmur, rubs, systolic murmur Pulses: PRESENT: normal dorsalis pedis pul GI/Abdominal exam: PRESENT: normal bowel sounds, soft. ABSENT: distended, guarding, mass, organolmegaly, rebound, tenderness Rectal exam: PRESENT: deferred Neurological exam: PRESENT: alert, awake, oriented to person, oriented to place, oriented to time, oriented to situation, CN II-XII grossly intact. ABSENT: motor sensory deficit Results Laboratory Results: 06/24/18 14:47 06/24/18 16:20 06/24/18 06/24/18 06/24/18 14:47 16:20 19:25 Troponin I Cancelled 0.415 0.545 Impressions: Femur X-Ray 06/24/18 13:25 IMPRESSION: NEGATIVE STUDY OF THE LEFT FEMUR. NO RADIOGRAPHIC EVIDENCE OF ACUTE INJURY. Chest X-Ray 06/24/18 13:26 IMPRESSION: Moderate cardiomegaly. No acute findings Lower Extremity CT 06/24/18 14:50 IMPRESSION: No fracture. Carotid Doppler Study 06/25/18 10:00 IMPRESSION: Greater than 70% stenosis in the right and left internal carotid arteries. This has progressed from prior study. Assessment & Plan - Diagnosis (1) Hypotension Is this a current diagnosis for this admission?: Yes Plan: Likely dialysis-related hypotension. 06/24: Blood pressures have spontaneously improved to 95/45. Will restart midodrine and will closely monitor blood pressure response. She does not appear to be septic but will do further work up for her hypotension including blood c ulture. Will also order an echocardiogram. 06/25: Patient was started on low dose levophed last night as her BP dropped to the 80/40s again. She was asymptomatic. Upon encounter this morning, she is co mfortable eating her breakfast and denies any acute complaint. Leveophed at 8 mics. Blood pressures in the 100/50s. TSH normal and AM cortisol is actually elevated. Continue midodrine. Blood culture pending. Will try to wean off levophed. 06/26: On Levophed at 8 mics. Will try to see if there's any benefit in increasing her midodrine to 10 mg tid. Continue to attempt weaning off levophed. Note nep hro recommendations to possibly switch her to peritoneal dialysis. 06/27: Resolved. Blood pressures have improved and have remained stable after increasing midodrine to 10 mg tid. She has been off Levophed since yesterday afternoon. Her back and hip pain is well controlled with tramadol and lidocaine patch. She will be downgraded from ICU. (2) Syncope Qualifiers: Syncope type: unspecified Qualified Code(s): R55 - Syncope and collapse Is this a current diagnosis for this admission?: Yes Plan: Likely related to her dialysis related hypotension. Carotid doppler shows >70% stenosis in the ICAs. She will need further outpatient vascular surgery evaluation for this. (3) Elevated troponin Is this a current diagnosis for this admission?: Yes Plan: Patient does have CAD but elevated troponin is likely more related to ESRD and demand ischemia from hypotension. EKG is normal. She is not complaining of any chest pain or SOB. (4) ESRD (end stage renal disease) Is this a current diagnosis for this admission?: Yes Plan: Nephrology following. - Time Time Spent with patient: 25-34 minutes
--- NOTE | 2018-06-27 14:35 | XCELERA REPORT ---
[address] [facility] [address] Lower Extremity Venous Evaluation Procedure: Color flow and duplex imaging bilaterally of the veins of the lower extremities as well as the Common Femoral veins. Right Sided Venous Evaluation Normal vessel filling wall to wall, compression and augmentation as well as Colour flow down to the infrageniculate veins. Left Sided Venous Evaluation Normal vessel filling wall to wall, compression and augmentation as well as Colour flow down to the infrageniculate veins. Interpretation Summary No duplex evidence of DVT or obstruction in the bilateral lower extremities. Name: WOODROW HAYS Age: 78 yrs Gender: Female : 1940 Patient Status: Inpatient Patient [facility]: [facility] Study Date: 06/27/2018 01:24 PM Reason For Study: cardio recs from Dr Parker Ordering Physician: ZOE COTA Performed By: Thanh Hameed : ZOE COTA > [place]
[2018-06-27] MEDS: LIDOCAINE 5% (700 MG) TRANSDERMAL ADH..PATCH TP SCH (19:56)
[2018-06-28] MEDS ORDERED: EPOETIN ALFA INJ 20000 UNIT/1 ML VIAL (RENAL) IV PRN (07:36)
[2018-06-28] MEDS: TRAMADOL HCL 50 MG TABLET PO PRN ×2 (08:03→14:31)
[2018-06-28] MEDS ORDERED: FUROSEMIDE INJ/PF 40 MG/4 ML SDV ONE (08:25)
[2018-06-28 11:39] LABS: ANION GAP 15 (5-19); BLOOD UREA NITROGEN 73 mg/dL (7-20); CALCIUM 9.3 mg/dL (8.4-10.2); CARBON DIOXIDE 24 mmol/L (22-30); CHLORIDE 96 mmol/L (98-107); GLUCOSE 82 mg/dL (75-110); POTASSIUM 4.7 mmol/L (3.6-5.0); SODIUM 135.4 mmol/L (137-145)
[2018-06-28 11:40] LABS: HEMATOCRIT 19.5 % (36.0-47.0); MEAN CORPUSCULAR HEMOGLOBIN 32.9 pg (27.0-33.4); MEAN CORPUSCULAR HGB CONC 33.3 g/dL (32.0-36.0); MEAN CORPUSCULAR VOLUME 99 fl (80-97); PLATELET COUNT 368 10^3/uL (150-450); RED BLOOD COUNT 1.98 10^6/uL (3.72-5.28); RED CELL DISTRIBUTION WIDTH 15.9 % (11.5-14.0); WHITE BLOOD COUNT 9.8 10^3/uL (4.0-10.5)
[2018-06-28 11:43] LABS: HEMOGLOBIN 6.5 g/dL (12.0-15.5)
--- NOTE | 2018-06-28 12:04 | PDOC PROGRESS REPORT ---
Subjective Progress Note for:: 06/28/18 Reason For Visit: This patient was seen on dialysis today. Chart review was done. This is a chronic ESRD patient with chronic hypotension on midodrine, CAD with prior stenting in 2012, history of ruptured colon with subsequent reversal of ileostomy, reports questionable history of CHF was admitted with a history of near syncope.She has had difficulty in ultrafiltration on hemodialysis as an outpatient because of her chronically low blood pressures in spite of maximal dose of Midodrin. Patient has been having low blood pressures more than her usual in the past week. Her blood pressure on transfer from outpatient dialysis unit to the ER was in the 80s systolic. Patient denies any history of chest pains. Patient was begun on pressors and stabilized in the ICU. Currently she has been transferred to the floor and is now undergoing dialysis without any issues. Her blood pressures on the low 100 220 systolic patient denies any such chest pain or shortness of breath. She has edema. Labs and medications were reviewed with her in the treating dialysis nurse.I reviewed her echocardiogram done on this admission that showed LV ejection fraction more than 50%. Mild aortic stenosis.Moderate pulmonary hypertension. No significant pericardial effusion. Physical Exam Vital Signs: Temp Pulse Resp BP Pulse Ox 97.2 F 66 20 121/41 L 98 06/28/18 03:09 06/28/18 07:00 06/28/18 03:09 06/28/18 03:09 06/28/18 03:09 Intake & Output 06/27/18 06/28/18 06/29/18 06:59 06:59 06:59 Intake Total 645 Output Total 0 Balance 645 Weight 61 kg 61.4 kg General appearance: PRESENT: no acute distress Respiratory exam: PRESENT: clear to auscultation naeem, decreased breath sounds. ABSENT: crackles Cardiovascular exam: PRESENT: +S1, +S2 GI/Abdominal exam: PRESENT: normal bowel sounds, soft. ABSENT: organomegaly, tenderness Extremities exam: PRESENT: +1 edema Neurological exam: PRESENT: alert, awake, oriented to person, oriented to place Psychiatric exam: PRESENT: anxious Skin exam: ABSENT: cyanosis, erythema, mottled, rash Results Laboratory Results: 06/28/18 08:48 06/28/18 08:48 06/28/18 06/28/18 08:48 08:48 WBC 9.8 RBC 1.98 L Hgb 6.5 L Hct 19.5 L MCV 99 H MCH 32.9 MCHC 33.3 RDW 15.9 H Plt Count 368 Sodium 135.4 L Potassium 4.7 Chloride 96 L Carbon Dioxide 24 Anion Gap 15 BUN 73 H Creatinine 5.98 H Est GFR ( Amer) 8 L Est GFR (Non-Af Amer) 7 L Glucose 82 Calcium 9.3 06/24/18 06/24/18 06/24/18 14:47 16:20 19:25 Troponin I Cancelled 0.415 0.545 Impressions: Femur X-Ray 06/24/18 13:25 IMPRESSION: NEGATIVE STUDY OF THE LEFT FEMUR. NO RADIOGRAPHIC EVIDENCE OF ACUTE INJURY. Chest X-Ray 06/24/18 13:26 IMPRESSION: Moderate cardiomegaly. No acute findings Lower Extremity CT 06/24/18 14:50 IMPRESSION: No fracture. Carotid Doppler Study 06/25/18 10:00 IMPRESSION: Greater than 70% stenosis in the right and left internal carotid arteries. This has progressed from prior study. Assessment & Plan - Diagnosis (1) ESRD (end stage renal disease) Is this a current diagnosis for this admission?: Yes Plan: Patient seen on dialysis today. It is being supervised to ensure safe and smooth procedure.Currently her blood pressure seems to be holding between 100 and 120 systolic. We will try to remove as much of fluid as tolerated without her dropping her blood pressure. As mentioned earlier she has had difficulty in removing fluid because of chronically low blood pressures and as an outpatient in spite of maximal Midodrin. Besides she has had a hemoglobin drop to 6.5 from previous 8+ that was done on the . She has been given erythropoietin. We will repeat her hemoglobin an hour after dialysis and if it is below 7 will recommend for 1 unit of transfusion. Follow-up labs again in the morning. Patient denies any history of acute GI bleeds.Apparently there is some talk between mother and daughter from [place] and that patient will be moving in with her daughter in the next few months. However the patient states that it will be many months before it actually materializes. (2) Anemia in chronic kidney disease (CKD) Is this a current diagnosis for this admission?: Yes Plan: As mentioned earlier today hemoglobin is now 6.5. Last hemoglobin done on the was 8+. Repeat hemoglobin hour after dialysis and will recommend transfusion of at least 1 unit if hemoglobin below 7. Get iron studies in the morning. Continue on erythropoietin. No active signs and evidences of GI bleed at the moment. (3) Elevated troponin Is this a current diagnosis for this admission?: Yes Plan: As per hospitalist.Likely from demand ischemia. However she has got echocardiogram does suggest possible underlying ischemic cardiomyopathy. (4) Hypotension Is this a current diagnosis for this admission?: Yes Plan: Patient has been tenuous with her blood pressures in spite of maximal Midodrin. No pericardial effusion. Cortisol normal. Will start on low-dose of Florinef and see the response. (5) Syncope Qualifiers: Syncope type: unspecified Qualified Code(s): R55 - Syncope and collapse Is this a current diagnosis for this admission?: Yes Plan: Possibly multifactorial. Obviously low blood pressures would be the major culprit. However recent carotid Dopplers shows recent progression of bilateral carotid artery stenosis more than 70%. In view of this I would suggest that her blood pressures are maintained at least around 110 or so systolic if possible. Discussed with the nurse that avoidance of low blood pressures is imperative given her progressive possible critical carotid artery stenosis.
[2018-06-28 14:12] LABS: HEMATOCRIT 20.2 % (36.0-47.0); MEAN CORPUSCULAR HEMOGLOBIN 32.5 pg (27.0-33.4); MEAN CORPUSCULAR HGB CONC 33.2 g/dL (32.0-36.0); MEAN CORPUSCULAR VOLUME 98 fl (80-97); RED BLOOD COUNT 2.07 10^6/uL (3.72-5.28); RED CELL DISTRIBUTION WIDTH 15.8 % (11.5-14.0); WHITE BLOOD COUNT 11.7 10^3/uL (4.0-10.5)
[2018-06-28] MEDS: CALCIUM ACETATE 667 MG CAPSULE PO SCH ×3 (14:25→18:34)
[2018-06-28] MEDS: MIDODRINE HCL 5 MG TABLET PO SCH ×3 (14:26→18:34)
[2018-06-28] MEDS: ASPIRIN 81 MG TABLET, CHEWABLE PO SCH (14:32)
[2018-06-28] MEDS: HEPARIN SOD (PORCINE) 5,000 UNIT/ML 1 ML SYRINGE SUBCUT SCH ×2 (14:41→21:34)
[2018-06-28 14:46] LABS: HEMOGLOBIN 6.7 g/dL (12.0-15.5); PLATELET COUNT 317 10^3/uL (150-450)
[2018-06-28 14:48] LABS: ABSOLUTE LYMPHOCYTES# (MANUAL) 1.5 10^3/uL (0.5-4.7); ABSOLUTE MONOCYTES # (MANUAL) 0.8 10^3/uL (0.1-1.4); ABSOLUTE NEUTROPHILS# (MANUAL) 9.2 10^3/uL (1.7-8.2); ANISOCYTOSIS SLIGHT; BASOPHILS % (MANUAL) 0 % (0-2); EOSINOPHILS % (MANUAL) 1 % (0-6); LYMPHOCYTES % (MANUAL) 13 % (13-45); MONOCYTES % (MANUAL) 7 % (3-13); OVALOCYTES SLIGHT; POIKILOCYTOSIS SLIGHT; SEGMENTED NEUTROPHILS % (MAN) 79 % (42-78); TOTAL CELLS COUNTED 100
[2018-06-28 14:49] LABS: PLATELET CLUMPS PRESENT; POLYCHROMASIA SLIGHT
--- NOTE | 2018-06-28 20:43 | PDOC PROGRESS REPORT ---
Subjective Progress Note for:: 06/28/18 Subjective:: No adverse events overnight. Blood pressures have been stable. She had dialysis today and tolerated it well. Her edema has improved. She seems to have more edema in her left leg and arm than on her right. She denies any hematemesis, hematochezia, or melena. Reason For Visit: HYPOTENSION,ELEVATED TROPONIN Physical Exam Vital Signs: Temp Pulse Resp BP Pulse Ox 97.4 F 71 16 107/31 L 92 06/28/18 19:17 06/28/18 19:17 06/28/18 19:17 06/28/18 19:17 06/28/18 18:13 Intake & Output 06/27/18 06/28/18 06/29/18 06:59 06:59 06:59 Intake Total 645 737 Output Total 0 2000 Balance 645 -1263 Weight 61 kg 61.4 kg General appearance: PRESENT: no acute distress, cooperative, disheveled Respiratory exam: PRESENT: clear to auscultation naeem, symmetrical, unlabored. ABSENT: accessory muscle use, crackles, prolonged expiratory phas, rhonchi, tachypnea, wheezes Cardiovascular exam: PRESENT: RRR, +S1, +S2, systolic murmur - 3 out of 6 crescendo decrescendo at the left upper sternal border Pulses: PRESENT: normal carotid pulses Vascular exam: PRESENT: pallor GI/Abdominal exam: PRESENT: normal bowel sounds, soft. ABSENT: distended, guarding, rebound, tenderness Extremities exam: PRESENT: pedal edema, +1 edema - Seemed worse in the left arm and leg than on the right. ABSENT: clubbing Musculoskeletal exam: PRESENT: normal inspection. ABSENT: deformity Neurological exam: PRESENT: alert, awake, oriented to person, oriented to place, oriented to time, oriented to situation Psychiatric exam: PRESENT: appropriate affect, normal mood Skin exam: PRESENT: dry, pallor, skin tears - Lateral aspect of the right leg distal to the knee, warm Results Laboratory Results: 06/28/18 13:54 06/28/18 08:48 06/28/18 06/28/18 06/28/18 08:48 08:48 13:54 WBC 9.8 11.7 H RBC 1.98 L 2.07 L Hgb 6.5 L 6.7 L Hct 19.5 L 20.2 L MCV 99 H 98 H MCH 32.9 32.5 MCHC 33.3 33.2 RDW 15.9 H 15.8 H Plt Count 368 317 Seg Neutrophils % Not Reportable Lymphocytes % Not Reportable Monocytes % Not Reportable Eosinophils % Not Reportable Basophils % Not Reportable Absolute Neutrophils Not Reportable Absolute Lymphocytes Not Reportable Absolute Monocytes Not Reportable Absolute Eosinophils Not Reportable Absolute Basophils Not Reportable Sodium 135.4 L Potassium 4.7 Chloride 96 L Carbon Dioxide 24 Anion Gap 15 BUN 73 H Creatinine 5.98 H Est GFR ( Amer) 8 L Est GFR (Non-Af Amer) 7 L Glucose 82 Calcium 9.3 Blood Type Antibody Screen 06/28/18 16:11 WBC RBC Hgb Hct MCV MCH MCHC RDW Plt Count Seg Neutrophils % Lymphocytes % Monocytes % Eosinophils % Basophils % Absolute Neutrophils Absolute Lymphocytes Absolute Monocytes Absolute Eosinophils Absolute Basophils Sodium Potassium Chloride Carbon Dioxide Anion Gap BUN Creatinine Est GFR ( Amer) Est GFR (Non-Af Amer) Glucose Calcium Blood Type O POSITIVE Antibody Screen NEGATIVE 06/24/18 06/24/18 06/24/18 14:47 16:20 19:25 Troponin I Cancelled 0.415 0.545 Impressions: Femur X-Ray 06/24/18 13:25 IMPRESSION: NEGATIVE STUDY OF THE LEFT FEMUR. NO RADIOGRAPHIC EVIDENCE OF ACUTE INJURY. Chest X-Ray 06/24/18 13:26 IMPRESSION: Moderate cardiomegaly. No acute findings Lower Extremity CT 06/24/18 14:50 IMPRESSION: No fracture. Carotid Doppler Study 06/25/18 10:00 IMPRESSION: Greater than 70% stenosis in the right and left internal carotid arteries. This has progressed from prior study. Assessment & Plan - Diagnosis (1) Hypotension Qualifiers: Hypotension type: hemodialysis-associated hypotension Qualified Code(s): I95.3 - Hypotension of hemodialysis Is this a current diagnosis for this admission?: Yes Plan: Her Midrin was increased and this is improved her blood pressure. (2) Anemia in chronic kidney disease (CKD) Qualifiers: Chronic kidney disease stage: on chronic dialysis Qualified Code(s): N18.6 - End stage renal disease; D63.1 - Anemia in chronic kidney disease; Z99.2 - Dependence on renal dialysis Is this a current diagnosis for this admission?: Yes Plan: We gave her 1 unit of blood after dialysis. We will follow-up with nephrology to see if she is getting Epogen with dialysis. She may need another unit of blood during her next dialysis treatment. (3) ESRD (end stage renal disease) Is this a current diagnosis for this admission?: Yes Plan: Nephrology has been consulted. She is getting dialysis on Thursday and Thursday. Blood pressures are being monitored. (4) Syncope Qualifiers: Syncope type: unspecified Qualified Code(s): R55 - Syncope and collapse Is this a current diagnosis for this admission?: Yes Plan: This was probably due to her hypotension. Workup for stroke was negative. She did have signs of carotid stenosis and will need vascular surgery follow-up as an outpatient. - Time Time Spent with patient: 25-34 minutes
[2018-06-28] MEDS: LIDOCAINE 5% (700 MG) TRANSDERMAL ADH..PATCH TP SCH (21:30)
[2018-06-28 22:22] LABS: HEMATOCRIT 23.3 % (36.0-47.0); MEAN CORPUSCULAR HEMOGLOBIN 31.7 pg (27.0-33.4); MEAN CORPUSCULAR HGB CONC 33.3 g/dL (32.0-36.0); MEAN CORPUSCULAR VOLUME 95 fl (80-97); PLATELET COUNT 381 10^3/uL (150-450); RED BLOOD COUNT 2.45 10^6/uL (3.72-5.28); WHITE BLOOD COUNT 12.4 10^3/uL (4.0-10.5)
[2018-06-28 22:24] LABS: HEMOGLOBIN 7.8 g/dL (12.0-15.5)
[2018-06-29 05:14] LABS: ABSOLUTE BASOPHILS # (AUTO) 0.1 10^3/uL (0.0-0.2); ABSOLUTE EOSINOPHILS # (AUTO) 0.1 10^3/uL (0.0-0.6); ABSOLUTE LYMPHOCYTES (AUTO) 1.1 10^3/uL (0.5-4.7); ABSOLUTE MONOCYTES (AUTO) 1.3 10^3/uL (0.1-1.4); ABSOLUTE NEUT (AUTO) 8.3 10^3/uL (1.7-8.2); ABSOLUTE RETICS # 0.072 10^6/uL (0.028-0.122); BASOPHILS % (AUTO) 0.8 % (0-2); EOSINOPHILS % (AUTO) 0.6 % (0-6); HEMATOCRIT 21.6 % (36.0-47.0); MEAN CORPUSCULAR HEMOGLOBIN 32.3 pg (27.0-33.4); MEAN CORPUSCULAR HGB CONC 33.8 g/dL (32.0-36.0); MEAN CORPUSCULAR VOLUME 96 fl (80-97); MONOCYTES % (AUTO) 12.3 % (3-13); PLATELET COUNT 372 10^3/uL (150-450); RED BLOOD COUNT 2.26 10^6/uL (3.72-5.28); RED CELL DISTRIBUTION WIDTH 17.2 % (11.5-14.0); RETICULOCYTE COUNT (AUTO) 3.19 % (0.66-2.85); SEGMENTED NEUTROPHILS % (AUTO) 76.3 % (42-78); TOTAL CELLS COUNTED % (AUTO) 100 %; WHITE BLOOD COUNT 10.9 10^3/uL (4.0-10.5)
[2018-06-29 05:21] LABS: HEMOGLOBIN 7.3 g/dL (12.0-15.5)
[2018-06-29] MEDS ORDERED: NORMAL SALINE 250 ML IV PRN ×2 (05:25)
[2018-06-29 05:37] LABS: ANION GAP 6 (5-19); CARBON DIOXIDE 33 mmol/L (22-30); CHLORIDE 100 mmol/L (98-107); GLUCOSE 78 mg/dL (75-110); IRON(TIBC) 44.6 ug/dL (37-170); POTASSIUM 4.2 mmol/L (3.6-5.0); SODIUM 139.3 mmol/L (137-145)
[2018-06-29] MEDS: TRAMADOL HCL 50 MG TABLET PO PRN (06:48)
[2018-06-29 06:53] LABS: BLOOD UREA NITROGEN 36 mg/dL (7-20)
--- NOTE | 2018-06-29 07:01 | PDOC CONSULTATION ---
Consultation Consult Date: 06/29/18 History of Present Illness Admission Date/PCP: 06/24/18 18:11 MARISOL IRELAND MD 78 y/o female with multiple cardiac, renal medical problems admitted History of Present Illness: WOODROW HAYS is a 78 year old female admitted for hypotension and leg swelling 3 days ago pt felt weak and noted to be hypotensive while at dialysis and was brought to er here. noted then to have a hemoglobin of 8.1 noted also to have elevated troponins. was treated in hosp with iv fluids at one point was on levophed pt noted to have droping hct, initially felt due to hydration this am she started passing clots per rectum no c/o of abd pain. Past Medical History Cardiac Medical History: Reports: Coronary Artery Disease, Myocardial Infarction - no mi. 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, Renal/ Medical History: Reports: End Stage Renal Disease GI Medical History: Reports: Other - History of GI bleed, peritonitis, colon rupture Musculoskeltal Medical History: Reports: Arthritis - GENERALIZED worse on her hips, cardiac clearance note given for hip replace Hematology: Denies: Anemia Past Surgical History Past Surgical History: Reports: Cardiac Catheterization - 1992, Cholecystectomy, Hysterectomy, Ileostomy, Orthopedic Surgery - total left hip arthroplasty-2000, Vascular Surgery, Other - Surgery with colostomy followed by colostomy closure Social History Lives with: Alone Smoking Status: Former Smoker Frequency of Alcohol Use: None Hx Recreational Drug Use: No - Advance Directive Resuscitation Status: Full Code Family History Family History: Reviewed & Not Pertinent Parental Family History Reviewed: No Children Family History Reviewed: No Sibling(s) Family History Reviewed.: No Medication/Allergy Home Medications: Aspirin [Ecotrin 81 mg EC Tablet] 81 mg PO DAILY 01/09/17 Bumetanide [Bumex 1 mg Tablet] 0.5 mg PO Q12 01/09/17 Zolpidem Tartrate [Ambien] 10 mg PO QHS 01/09/17 Calcium Acetate [Phoslo 667 Mg Capsule] 667 mg PO TID 08/13/17 Liothyronine Sodium 10 mcg PO DAILY 08/13/17 Midodrine HCl [Proamatine 5 Mg Tablet] 10 mg PO BIDP PRN 08/13/17 Pantoprazole Sodium 40 mg PO DAILY 08/13/17 Pramipexole Di-HCl [Mirapex 0.5 Mg Tablet] 0.5 mg PO QHS 08/13/17 Rosuvastatin Calcium 5 mg PO DAILY 08/13/17 Vit B Comp No.3/Folic/C/Biotin [Alice-Sharmaine Rx Tablet] 1 each PO DAILY 08/13/17 Estrogens, Conjugated [Premarin 0.45 mg Tablet] 0.45 mg PO DAILY 06/24/18 Fenofibric Acid (Choline) [Fenofibric Acid] 135 mg PO DAILY 06/24/18 Furosemide [Lasix 40 mg Tablet] 40 mg PO Q12 06/24/18 Hydromorphone HCl [Dilaudid] 4 mg PO QIDP PRN 06/24/18 Levothyroxine Sodium [Synthroid] 125 mcg PO DAILY 06/24/18 Metolazone [Zaroxolyn 5 mg Tablet] 5 mg PO DAILY 06/24/18 Allergies/Adverse Reactions: No Known Allergies Allergy (Verified 06/24/18 13:29) Review of Systems Constitutional: PRESENT: as per HPI Eyes: PRESENT: as per HPI Ears: PRESENT: as per HPI Nose, Mouth, and Throat: PRESENT: as per HPI Breasts: PRESENT: as per HPI Cardiovascular: PRESENT: as per HPI Respiratory: PRESENT: as per HPI Gastrointestinal: PRESENT: as per HPI Genitourinary: PRESENT: as per HPI Musculoskeletal: PRESENT: as per HPI Integumentary: PRESENT: as per HPI Neurological: PRESENT: as per HPI Psychiatric: PRESENT: as per HPI Endocrine: PRESENT: as per HPI Hematologic/Lymphatic: PRESENT: as per HPI Physical Exam Vital Signs: Temp Pulse Resp BP Pulse Ox 97.4 F 68 18 102/40 L 100 06/29/18 06:45 06/29/18 06:45 06/29/18 06:45 06/29/18 06:45 06/29/18 06:45 Intake & Output 06/27/18 06/28/18 06/29/18 06:59 06:59 06:59 Intake Total 645 1137 Output Total 0 2000 Balance 645 -863 Weight 61 kg 61.4 kg General appearance: PRESENT: no acute distress Head exam: PRESENT: atraumatic Eye exam: PRESENT: conjunctiva pale Neck exam: PRESENT: full ROM Respiratory exam: PRESENT: clear to auscultation naeem Cardiovascular exam: PRESENT: RRR Pulses: PRESENT: normal radial pulses, normal femoral pulses GI/Abdominal exam: PRESENT: other - midline scar, no abd pain Extremities exam: PRESENT: full ROM Neurological exam: PRESENT: alert, awake, oriented to person, oriented to place, oriented to time Results Laboratory Results: 06/29/18 04:40 06/28/18 06/28/18 06/28/18 08:48 08:48 13:54 WBC 9.8 11.7 H RBC 1.98 L 2.07 L Hgb 6.5 L 6.7 L Hct 19.5 L 20.2 L MCV 99 H 98 H MCH 32.9 32.5 MCHC 33.3 33.2 RDW 15.9 H 15.8 H Plt Count 368 317 Seg Neutrophils % Not Reportable Lymphocytes % Not Reportable Monocytes % Not Reportable Eosinophils % Not Reportable Basophils % Not Reportable Absolute Neutrophils Not Reportable Absolute Lymphocytes Not Reportable Absolute Monocytes Not Reportable Absolute Eosinophils Not Reportable Absolute Basophils Not Reportable Retic Count (auto) Absolute Retic Sodium 135.4 L Potassium 4.7 Chloride 96 L Carbon Dioxide 24 Anion Gap 15 BUN 73 H Creatinine 5.98 H Est GFR ( Amer) 8 L Est GFR (Non-Af Amer) 7 L Glucose 82 Calcium 9.3 Blood Type Antibody Screen 06/28/18 06/28/18 06/29/18 16:11 22:15 04:40 WBC 12.4 H 10.9 H RBC 2.45 L 2.26 L Hgb 7.8 L 7.3 L Hct 23.3 L 21.6 L MCV 95 96 MCH 31.7 32.3 MCHC 33.3 33.8 RDW 17.0 H 17.2 H Plt Count 381 372 Seg Neutrophils % 76.3 Lymphocytes % 10.0 L Monocytes % 12.3 Eosinophils % 0.6 Basophils % 0.8 Absolute Neutrophils 8.3 H Absolute Lymphocytes 1.1 Absolute Monocytes 1.3 Absolute Eosinophils 0.1 Absolute Basophils 0.1 Retic Count (auto) 3.19 H Absolute Retic 0.072 Sodium Potassium Chloride Carbon Dioxide Anion Gap BUN Creatinine Est GFR ( Amer) Est GFR (Non-Af Amer) Glucose Calcium Blood Type O POSITIVE Antibody Screen NEGATIVE 06/24/18 06/24/18 06/24/18 14:47 16:20 19:25 Troponin I Cancelled 0.415 0.545 Impressions: Femur X-Ray 06/24/18 13:25 IMPRESSION: NEGATIVE STUDY OF THE LEFT FEMUR. NO RADIOGRAPHIC EVIDENCE OF ACUTE INJURY. Chest X-Ray 06/24/18 13:26 IMPRESSION: Moderate cardiomegaly. No acute findings Lower Extremity CT 06/24/18 14:50 IMPRESSION: No fracture. Carotid Doppler Study 06/25/18 10:00 IMPRESSION: Greater than 70% stenosis in the right and left internal carotid arteries. This has progressed from prior study. Assessment & Plan - Plan Summary Plan Summary: 78 y/o female with multiple medical problems on dialyisis presented with hypotension 3 days ago now with blood per rectum,clots per rectum hx of hemorrhoids recommend npo check pt,ptt recheck hct will plan on flexsig vs colo
[2018-06-29] MEDS ORDERED: DEXTROSE 50%-WATER 25 GM/50 ML DISP.SYRIN IV PRN ×2 (07:06)
[2018-06-29] MEDS ORDERED: GLUCAGON,HUMAN RECOMB 1 MG INJ SUBCUT PRN (07:06)
[2018-06-29] MEDS ORDERED: DEXTROSE 40% GEL 15 GM TUBE PO PRN ×2 (07:06)
--- NOTE | 2018-06-29 12:24 | PDOC PROGRESS REPORT ---
Subjective Progress Note for:: 06/29/18 Subjective:: no c/o Reason For Visit: HYPOTENSION,ELEVATED TROPONIN Physical Exam Vital Signs: Temp Pulse Resp BP Pulse Ox 97.4 F 57 L 16 123/43 L 100 06/29/18 10:45 06/29/18 10:45 06/29/18 10:45 06/29/18 10:45 06/29/18 10:45 Intake & Output 06/28/18 06/29/18 06/30/18 06:59 06:59 06:59 Intake Total 1137 300 Output Total 2000 Balance -863 300 Weight 61.4 kg 58.8 kg General appearance: PRESENT: no acute distress Respiratory exam: PRESENT: clear to auscultation naeem Cardiovascular exam: PRESENT: RRR GI/Abdominal exam: PRESENT: soft, other - old laparotomy midline scar Results Laboratory Results: 06/29/18 04:40 06/29/18 04:40 06/28/18 06/28/18 06/28/18 13:54 16:11 22:15 WBC 11.7 H 12.4 H RBC 2.07 L 2.45 L Hgb 6.7 L 7.8 L Hct 20.2 L 23.3 L MCV 98 H 95 MCH 32.5 31.7 MCHC 33.2 33.3 RDW 15.8 H 17.0 H Plt Count 317 381 Seg Neutrophils % Not Reportable Lymphocytes % Not Reportable Monocytes % Not Reportable Eosinophils % Not Reportable Basophils % Not Reportable Absolute Neutrophils Not Reportable Absolute Lymphocytes Not Reportable Absolute Monocytes Not Reportable Absolute Eosinophils Not Reportable Absolute Basophils Not Reportable Retic Count (auto) Absolute Retic Sodium Potassium Chloride Carbon Dioxide Anion Gap BUN Creatinine Est GFR ( Amer) Est GFR (Non-Af Amer) Glucose Calcium Iron TIBC % Saturation Ferritin Vitamin B12 Folate Blood Type O POSITIVE Antibody Screen NEGATIVE 06/29/18 06/29/18 04:40 04:40 WBC 10.9 H RBC 2.26 L Hgb 7.3 L Hct 21.6 L MCV 96 MCH 32.3 MCHC 33.8 RDW 17.2 H Plt Count 372 Seg Neutrophils % 76.3 Lymphocytes % 10.0 L Monocytes % 12.3 Eosinophils % 0.6 Basophils % 0.8 Absolute Neutrophils 8.3 H Absolute Lymphocytes 1.1 Absolute Monocytes 1.3 Absolute Eosinophils 0.1 Absolute Basophils 0.1 Retic Count (auto) 3.19 H Absolute Retic 0.072 Sodium 139.3 Potassium 4.2 Chloride 100 Carbon Dioxide 33 H Anion Gap 6 BUN 36 H D Creatinine 3.39 H Est GFR ( Amer) 16 L Est GFR (Non-Af Amer) 13 L Glucose 78 Calcium 9.0 Iron 44.6 TIBC 326 % Saturation 14 Ferritin 132.00 Vitamin B12 494.0 Folate 16.20 Blood Type Antibody Screen 06/24/18 06/24/18 06/24/18 14:47 16:20 19:25 Troponin I Cancelled 0.415 0.545 Impressions: Femur X-Ray 06/24/18 13:25 IMPRESSION: NEGATIVE STUDY OF THE LEFT FEMUR. NO RADIOGRAPHIC EVIDENCE OF ACUTE INJURY. Chest X-Ray 06/24/18 13:26 IMPRESSION: Moderate cardiomegaly. No acute findings Lower Extremity CT 06/24/18 14:50 IMPRESSION: No fracture. Carotid Doppler Study 06/25/18 10:00 IMPRESSION: Greater than 70% stenosis in the right and left internal carotid arteries. This has progressed from prior study. Assessment & Plan - Diagnosis (1) Anemia in chronic kidney disease (CKD) Qualifiers: Chronic kidney disease stage: on chronic dialysis Qualified Code(s): N18.6 - End stage renal disease; D63.1 - Anemia in chronic kidney disease; Z99.2 - Dependence on renal dialysis Is this a current diagnosis for this admission?: Yes (2) ESRD (end stage renal disease) Is this a current diagnosis for this admission?: Yes (3) GI bleed Qualifiers: GI bleed type/associated pathology: unspecified gastrointestinal hemorrhage type Qualified Code(s): K92.2 - Gastrointestinal hemorrhage, unspecified Is this a current diagnosis for this admission?: Yes - Plan Summary Plan Summary: A/ ESRD on HD Chronic diastolic hypotension Lower GI bleeding started yesterday, asymptomatic; patient passing large amount of blood clots H/H= 7.3/21.6 Normal Platelet counts PT/PTT not available Multiple medical issues 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
[2018-06-29] MEDS ORDERED: DESMOPRESSIN ACETATE 20 MCG in NORMAL SALINE 50 ML IV ONE (13:00)
[2018-06-29] MEDS ORDERED: BISACODYL 5 MG TABEC PO ONE (13:30)
[2018-06-29] MEDS ORDERED: PEG 3350/NA SULF,BICARB,CL/KCL 4000 ML PO ONE (13:30)
--- NOTE | 2018-06-29 13:42 | Progress Note ---
Provider Note Provider Note: Events noted. Notified from nurse about large amount or rectal bleeding with clots. patient alert, pale. Two units of PRBC just infused. Vitals= B 120/40, HR 62. Abdomen soft Rectum: large amount of clots, fresh, no active bleeding seen A/P Rectal bleeding of unknown origin and cause Plan emergent EGD/colonoscopy to both diagnose and control the bleeding source if identified Consent obtained. Procedure, risks, benefits, complications explained to patient and daughter, they understand and the patient decides to proceed with the above procedures.
[2018-06-29] MEDS ORDERED: ETHYL ALCOHOL IV PRN (14:15)
[2018-06-29 14:23] LABS: INTERNATIONAL RATION (INR) 0.92; PARTIAL THROMBOPLASTIN TIME 33.6 SEC (23.5-35.8); PROTHROMBIN TIME 12.8 SEC (11.4-15.4)
[2018-06-29 14:25] LABS: ABSOLUTE BASOPHILS # (AUTO) 0.1 10^3/uL (0.0-0.2); ABSOLUTE EOSINOPHILS # (AUTO) 0.1 10^3/uL (0.0-0.6); ABSOLUTE MONOCYTES (AUTO) 1.1 10^3/uL (0.1-1.4); ABSOLUTE NEUT (AUTO) 5.7 10^3/uL (1.7-8.2); EOSINOPHILS % (AUTO) 0.9 % (0-6); HEMATOCRIT 30.6 % (36.0-47.0); MEAN CORPUSCULAR HEMOGLOBIN 31.8 pg (27.0-33.4); MEAN CORPUSCULAR VOLUME 94 fl (80-97); MONOCYTES % (AUTO) 13.7 % (3-13); PLATELET COUNT 343 10^3/uL (150-450); RED BLOOD COUNT 3.28 10^6/uL (3.72-5.28); RED CELL DISTRIBUTION WIDTH 17.4 % (11.5-14.0); SEGMENTED NEUTROPHILS % (AUTO) 71.4 % (42-78); TOTAL CELLS COUNTED % (AUTO) 100 %
[2018-06-29 14:32] LABS: HEMOGLOBIN 10.4 g/dL (12.0-15.5)
--- NOTE | 2018-06-29 15:30 | Operative Report ---
Nonrecallable Operative Report DATE OF SURGERY: 06/29/18 PREOPERATIVE DIAGNOSIS: lower GI bleeding of unknown cause and origin POSTOPERATIVE DIAGNOSIS: Normal EGD. Lower GI bleeding. Actively bleeding rectosigmoid telangectasia. sigmoid diverticulosis OPERATION: EGD. Colonoscopy to 100 cm with biopsy SURGEON: HALLIE WALDRON ANESTHESIA: LMAC TISSUE REMOVED OR ALTERED: biopsy left colon and sigmoid mucosa COMPLICATIONS: none ESTIMATED BLOOD LOSS: not measured INTRAOPERATIVE FINDINGS: Normal EGD. actively bleeding rectosigmoid telangectasia. sigmoid diverticulosis PROCEDURE: EGD to 3rd portion of duodenum Colonoscopy to 100 cm
[2018-06-29] MEDS ORDERED: ONDANSETRON HCL INJ/PF 4 MG/2 ML SDV ONE (15:38)
[2018-06-29] MEDS ORDERED: DEXAMETHASONE SOD PHOSPHATE INJ 4 MG/1 ML VIAL ONE (15:38)
[2018-06-29] MEDS ORDERED: LIDOCAINE 2% INJ-PF (20 MG/ML) 2 ML AMPUL ONE (15:38)
[2018-06-29] MEDS: MIDODRINE HCL 5 MG TABLET PO SCH ×3 (16:06→17:18)
[2018-06-29] MEDS: CALCIUM ACETATE 667 MG CAPSULE PO SCH ×2 (16:06→17:18)
[2018-06-29] MEDS: HEPARIN SOD (PORCINE) 5,000 UNIT/ML 1 ML SYRINGE SUBCUT SCH (16:09)
[2018-06-29] MEDS: FLUDROCORTISONE ACETATE 0.1 MG TABLET PO SCH (16:09)
[2018-06-29] MEDS: ASPIRIN 81 MG TABLET, CHEWABLE PO SCH (16:09)
[2018-06-29] MEDS: ESTROGENS CONJUGATED IV SCH (17:29)
[2018-06-29] MEDS: NORMAL SALINE IV SCH (17:29)
--- NOTE | 2018-06-29 19:59 | PDOC PROGRESS REPORT ---
Subjective Progress Note for:: 06/29/18 Subjective:: Just back from endoscopy for GI bleed. Reason For Visit: Lower GI bleed End-stage renal disease on hemodialysis Hypotension Physical Exam Vital Signs: Temp Pulse Resp BP Pulse Ox 97.4 F 73 18 107/41 L 97 06/29/18 15:10 06/29/18 15:40 06/29/18 15:40 06/29/18 15:40 06/29/18 15:40 Intake & Output 06/28/18 06/29/18 06/30/18 06:59 06:59 06:59 Intake Total 1137 300 Output Total 1999 Balance -863 300 Weight 61.4 kg 58.8 kg General appearance: PRESENT: no acute distress, cooperative, thin, well-developed Head exam: PRESENT: normocephalic Eye exam: PRESENT: conjunctiva pale. ABSENT: scleral icterus Ear exam: PRESENT: normal external ear exam Mouth exam: PRESENT: moist Neck exam: ABSENT: carotid bruit, lymphadenopathy Respiratory exam: PRESENT: rales - At bases, symmetrical, unlabored. ABSENT: rhonchi Cardiovascular exam: PRESENT: RRR, +S1, +S2, systolic murmur - 3/6 Vascular exam: PRESENT: pallor GI/Abdominal exam: PRESENT: diminished bowel sounds, soft. ABSENT: distended, tenderness Rectal exam: PRESENT: deferred, other - Large amount of bright red blood per rectum per nursing from earlier today Extremities exam: PRESENT: +1 edema Neurological exam: PRESENT: alert, awake, oriented to person, oriented to place, oriented to situation Psychiatric exam: PRESENT: appropriate affect. ABSENT: agitated, anxious Focused psych exam: ABSENT: delusional, restlessness Results Laboratory Results: 06/29/18 13:45 06/29/18 04:40 06/28/18 06/28/18 06/29/18 16:11 22:15 04:40 WBC 12.4 H 10.9 H RBC 2.45 L 2.26 L Hgb 7.8 L 7.3 L Hct 23.3 L 21.6 L MCV 95 96 MCH 31.7 32.3 MCHC 33.3 33.8 RDW 17.0 H 17.2 H Plt Count 381 372 Seg Neutrophils % 76.3 Lymphocytes % 10.0 L Monocytes % 12.3 Eosinophils % 0.6 Basophils % 0.8 Absolute Neutrophils 8.3 H Absolute Lymphocytes 1.1 Absolute Monocytes 1.3 Absolute Eosinophils 0.1 Absolute Basophils 0.1 Retic Count (auto) 3.19 H Absolute Retic 0.072 Sodium Potassium Chloride Carbon Dioxide Anion Gap BUN Creatinine Est GFR ( Amer) Est GFR (Non-Af Amer) Glucose Calcium Iron TIBC % Saturation Ferritin Vitamin B12 Folate Blood Type O POSITIVE Antibody Screen NEGATIVE 06/29/18 06/29/18 04:40 13:45 WBC 8.0 RBC 3.28 L Hgb 10.4 L D Hct 30.6 L MCV 94 MCH 31.8 MCHC 34.0 RDW 17.4 H Plt Count 343 Seg Neutrophils % 71.4 Lymphocytes % 13.0 Monocytes % 13.7 H Eosinophils % 0.9 Basophils % 1.0 Absolute Neutrophils 5.7 Absolute Lymphocytes 1.0 Absolute Monocytes 1.1 Absolute Eosinophils 0.1 Absolute Basophils 0.1 Retic Count (auto) Absolute Retic Sodium 139.3 Potassium 4.2 Chloride 100 Carbon Dioxide 33 H Anion Gap 6 BUN 36 H D Creatinine 3.39 H Est GFR ( Amer) 16 L Est GFR (Non-Af Amer) 13 L Glucose 78 Calcium 9.0 Iron 44.6 TIBC 326 % Saturation 14 Ferritin 132.00 Vitamin B12 494.0 Folate 16.20 Blood Type Antibody Screen 06/24/18 06/24/18 06/24/18 14:47 16:20 19:25 Troponin I Cancelled 0.415 0.545 Impressions: Femur X-Ray 06/24/18 13:25 IMPRESSION: NEGATIVE STUDY OF THE LEFT FEMUR. NO RADIOGRAPHIC EVIDENCE OF ACUTE INJURY. Chest X-Ray 06/24/18 13:26 IMPRESSION: Moderate cardiomegaly. No acute findings Lower Extremity CT 06/24/18 14:50 IMPRESSION: No fracture. Carotid Doppler Study 06/25/18 10:00 IMPRESSION: Greater than 70% stenosis in the right and left internal carotid arteries. This has progressed from prior study. Assessment & Plan - Diagnosis (1) GI bleed Qualifiers: GI bleed type/associated pathology: anorectal hemorrhage Qualified Code(s): K62.5 - Hemorrhage of anus and rectum Is this a current diagnosis for this admission?: Yes Plan: Because of a significant volume of bright red blood per rectum earlier today the patient was rushed to endoscopy. Dr. Valentino discovered multiple telangiectasias throughout the rectum. There was nothing to really suture. He put Gelfoam and some packing to try and compress the vasculature. The patient will receive intravenous estrogen (per discussion with Dr. Valentino and Dr. Christian) and we will need to monitor. If bleeding continues to occur then possible surgical intervention might be necessary. I will continue to monitor her hemoglobin. I will hold her aspirin and subcutaneous heparin. She can have ice chips and will be on a clear liquid diet for tonight. (2) ESRD (end stage renal disease) Is this a current diagnosis for this admission?: Yes Plan: Patient is a Thursday, Thursday and Thursday dialysis patient. Unfortunately dialysis beds are overwhelmed. I spoke with Dr. Christian. We will try and arra nge transfer for the patient so that dialysis can be uninterrupted. (3) Hypotension Qualifiers: Hypotension type: hemodialysis-associated hypotension Qualified Code(s): I95.3 - Hypotension of hemodialysis Is this a current diagnosis for this admission?: Yes Plan: Blood pressures appear to be stable on the increased dose of midodrine (10 mg every 8 hours) (4) Peripheral edema Is this a current diagnosis for this admission?: Yes Plan: The patient is not an uric. Most of the fluid has been managed with dialysis. If her blood pressure tolerates consider use of diuretics. She has been on diuretics in the past. Please also see the nephrology note. A limiting factor for dialysis has been blood pressure. (5) Hypothyroidism Qualifiers: Hypothyroidism type: unspecified Qualified Code(s): E03.9 - Hypothyroidism, unspecified Is this a current diagnosis for this admission?: Yes Plan: Resume levothyroxine and liothyronine - Time Time Spent with patient: 25-34 minutes Medications reviewed and adjusted accordingly: Yes Anticipated discharge: [facility]
[2018-06-29] MEDS: MORPHINE SULFATE 10 MG/ML INJ IV PRN (20:21)
[2018-06-29] MEDS: LIDOCAINE 5% (700 MG) TRANSDERMAL ADH..PATCH TP SCH (21:04)
[2018-06-30] MEDS: MORPHINE SULFATE 10 MG/ML INJ IV PRN (00:48)
[2018-06-30 04:42] LABS: HEMATOCRIT 26.2 % (36.0-47.0); HEMOGLOBIN 8.7 g/dL (12.0-15.5); MEAN CORPUSCULAR HEMOGLOBIN 31.1 pg (27.0-33.4); MEAN CORPUSCULAR HGB CONC 33.3 g/dL (32.0-36.0); MEAN CORPUSCULAR VOLUME 93 fl (80-97); PLATELET COUNT 346 10^3/uL (150-450); RED BLOOD COUNT 2.82 10^6/uL (3.72-5.28); RED CELL DISTRIBUTION WIDTH 16.9 % (11.5-14.0)
[2018-06-30 04:45] LABS: ANION GAP 11 (5-19); BLOOD UREA NITROGEN 46 mg/dL (7-20); CARBON DIOXIDE 26 mmol/L (22-30); CHLORIDE 100 mmol/L (98-107); POTASSIUM 4.6 mmol/L (3.6-5.0); SODIUM 137.3 mmol/L (137-145)
[2018-06-30 04:50] LABS: GLUCOSE 64 mg/dL (75-110)
[2018-06-30] MEDS ORDERED: EPOETIN ALFA INJ 20000 UNIT/1 ML VIAL (RENAL) IV PRN (05:00)
[2018-06-30] MEDS: LEVOTHYROXINE SODIUM 0.1 MG TABLET PO SCH (05:02)
[2018-06-30 05:22] LABS: WHITE BLOOD COUNT 20.2 10^3/uL (4.0-10.5)
[2018-06-30] MEDS ORDERED: LEVOTHYROXINE SODIUM 0.025 MG TABLET PO SCH (06:00)
[2018-06-30] MEDS ORDERED: NOREPINEPHRINE BITARTRATE INJ/PF 4 MG/4 ML SDV IV ONE (08:29)
[2018-06-30] MEDS ORDERED: DEXTROSE 5%-WATER 250 ML with NOREPINEPHRINE BITARTRATE 4 MG IV PRN ×2 (08:33)
[2018-06-30] MEDS: MIDODRINE HCL 5 MG TABLET PO SCH ×3 (08:34→17:11)
[2018-06-30] MEDS: TRAMADOL HCL 50 MG TABLET PO PRN ×2 (08:47→14:36)
--- NOTE | 2018-06-30 08:50 | PDOC PROGRESS REPORT ---
Subjective Progress Note for:: 06/30/18 Subjective:: No c/o, no blood per rectum overnight Reason For Visit: HYPOTENSION,ELEVATED TROPONIN Physical Exam Vital Signs: Temp Pulse Resp BP Pulse Ox 97.6 F 68 16 93/48 L 100 06/30/18 08:00 06/30/18 08:00 06/29/18 16:56 06/30/18 08:00 06/30/18 08:00 Intake & Output 06/29/18 06/30/18 07/01/18 06:59 06:59 06:59 Intake Total 1137 775 Output Total 2000 100 0 Balance -863 675 0 Weight 58.8 kg 60.8 kg General appearance: PRESENT: no acute distress GI/Abdominal exam: PRESENT: soft Rectal exam: PRESENT: normal inspection - no blood or clots noted Results Laboratory Results: 06/30/18 04:11 06/30/18 04:11 06/28/18 06/29/18 06/30/18 16:11 13:45 04:11 WBC 8.0 20.2 H D RBC 3.28 L 2.82 L Hgb 10.4 L D 8.7 L Hct 30.6 L 26.2 L MCV 94 93 MCH 31.8 31.1 MCHC 34.0 33.3 RDW 17.4 H 16.9 H Plt Count 343 346 Seg Neutrophils % 71.4 Lymphocytes % 13.0 Monocytes % 13.7 H Eosinophils % 0.9 Basophils % 1.0 Absolute Neutrophils 5.7 Absolute Lymphocytes 1.0 Absolute Monocytes 1.1 Absolute Eosinophils 0.1 Absolute Basophils 0.1 Sodium Potassium Chloride Carbon Dioxide Anion Gap BUN Creatinine Est GFR ( Amer) Est GFR (Non-Af Amer) Glucose Calcium Blood Type O POSITIVE Antibody Screen NEGATIVE 06/30/18 04:11 WBC RBC Hgb Hct MCV MCH MCHC RDW Plt Count Seg Neutrophils % Lymphocytes % Monocytes % Eosinophils % Basophils % Absolute Neutrophils Absolute Lymphocytes Absolute Monocytes Absolute Eosinophils Absolute Basophils Sodium 137.3 Potassium 4.6 Chloride 100 Carbon Dioxide 26 Anion Gap 11 BUN 46 H Creatinine 4.51 H Est GFR ( Amer) 11 L Est GFR (Non-Af Amer) 9 L Glucose 64 L Calcium 9.0 Blood Type Antibody Screen 06/24/18 06/24/18 06/24/18 14:47 16:20 19:25 Troponin I Cancelled 0.415 0.545 Impressions: Femur X-Ray 06/24/18 13:25 IMPRESSION: NEGATIVE STUDY OF THE LEFT FEMUR. NO RADIOGRAPHIC EVIDENCE OF ACUTE INJURY. Chest X-Ray 06/24/18 13:26 IMPRESSION: Moderate cardiomegaly. No acute findings Lower Extremity CT 06/24/18 14:50 IMPRESSION: No fracture. Carotid Doppler Study 06/25/18 10:00 IMPRESSION: Greater than 70% stenosis in the right and left internal carotid arteries. This has progressed from prior study. Assessment & Plan - Diagnosis (1) Anemia in chronic kidney disease (CKD) Qualifiers: Qualified Code(s): N18.6 - End stage renal disease; D63.1 - Anemia in chronic kidney disease; Z99.2 - Dependence on renal dialysis Is this a current diagnosis for this admission?: Yes (2) ESRD (end stage renal disease) Is this a current diagnosis for this admission?: Yes (3) GI bleed Qualifiers: Qualified Code(s): K62.5 - Hemorrhage of anus and rectum Is this a current diagnosis for this admission?: Yes - Plan Summary Plan Summary: A/ Lower Gi bleeding POD#1 after EGD/colonoscopy EGD= negative Colonoscopy up to 100 cm= bleeding rectosigmoid telangectasia, sigmoid diverticulosis H/H 8.7/26.2 today after 2 PRBC units yesterday No blood per rectum or clots passed since yesterday afternoon Lower GI bleeding controlled by IV P/ No acute General Surgery issues identified at this time No rectal bleeding Diet can be advanced to regular Patient can be discharged to home anytime She will need a follow up colonoscopy in 2-4 years (last colonoscopy negative in 2018)
[2018-06-30] MEDS ORDERED: (PENDING PHARMACY ID) (Levothyroxine Sodium [Synthroid] 125 MCG) PO SCH (10:00)
[2018-06-30] MEDS ORDERED: LIOTHYRONINE SODIUM 10 MCG PO SCH (10:00)
[2018-06-30] MEDS: CALCIUM ACETATE 667 MG CAPSULE PO SCH ×3 (10:46→16:32)
[2018-06-30] MEDS: FLUDROCORTISONE ACETATE 0.1 MG TABLET PO SCH (12:47)
[2018-06-30] MEDS: LIOTHYRONINE SODIUM 5 MCG TABLET PO SCH (12:49)
[2018-06-30 16:39] LABS: ALBUMIN 2 2.4 g/dL (2.9-4.4); ALPHA-2-GLOBULIN 2 0.6 g/dL (0.4-1.0); BETA GLOBULINS 0.9 g/dL (0.7-1.3); GAMMA GLOBULIN 0.5 g/dL (0.4-1.8); GLOBULIN TOTAL 2.3 g/dL (2.2-3.9); MONOCLONAL SPIKE Not Observed g/dL (Not Observ); PROTEIN TOTAL SERUM 4.7 g/dL (6.0-8.5)
[2018-06-30] MEDS: ESTROGENS CONJUGATED IV SCH (17:13)
[2018-06-30] MEDS: NORMAL SALINE IV SCH (17:13)
--- NOTE | 2018-06-30 19:24 | PDOC PROGRESS REPORT ---
Subjective Progress Note for:: 06/30/18 Subjective:: Patient was seen today on dialysis. At the time she was comfortable and with no compliants of chest pain or SOB. Her blood pressure was remaining in the 80s systolic despite being on levophed and receiving 500mL of NS during dialysis. Orders were discussed with the treating Barbara. Due to the BP she was only able to clean her blood. Recent ECHO showed PFO. Yesterday it was also found out that she had a severe bleed in her colon. She was transfused a few units of blood yesterday. Reason For Visit: HYPOTENSION,ELEVATED TROPONIN Physical Exam Vital Signs: Temp Pulse Resp BP Pulse Ox 97.6 F 78 15 106/39 L 100 06/30/18 16:00 06/30/18 18:00 06/30/18 18:00 06/30/18 18:00 06/30/18 18:00 Intake & Output 06/29/18 06/30/18 07/01/18 06:59 06:59 06:59 Intake Total 1137 775 546 Output Total 2000 100 1000 Balance -863 675 -454 Weight 58.8 kg 60.8 kg General appearance: PRESENT: no acute distress. ABSENT: well-developed, well- nourished Mouth exam: PRESENT: moist, neck supple Neck exam: ABSENT: JVD, tracheal deviation Respiratory exam: PRESENT: crackles, decreased breath sounds. ABSENT: clear to auscultation naeem, wheezes Cardiovascular exam: PRESENT: +S1, +S2 GI/Abdominal exam: PRESENT: normal bowel sounds, soft. ABSENT: organomegaly, tenderness Extremities exam: PRESENT: pedal edema, +1 edema. ABSENT: +2 edema Neurological exam: PRESENT: alert, awake, oriented to person, oriented to place, oriented to time, oriented to situation Psychiatric exam: PRESENT: appropriate affect, normal mood Skin exam: PRESENT: dry, intact, warm. ABSENT: cyanosis Results Laboratory Results: 06/30/18 04:11 06/30/18 04:11 06/30/18 06/30/18 04:11 04:11 WBC 20.2 H D RBC 2.82 L Hgb 8.7 L Hct 26.2 L MCV 93 MCH 31.1 MCHC 33.3 RDW 16.9 H Plt Count 346 Sodium 137.3 Potassium 4.6 Chloride 100 Carbon Dioxide 26 Anion Gap 11 BUN 46 H Creatinine 4.51 H Est GFR ( Amer) 11 L Est GFR (Non-Af Amer) 9 L Glucose 64 L Calcium 9.0 06/25/18 18:37 Blood Blood Culture - Final NO GROWTH IN 5 DAYS 06/25/18 13:50 Blood Blood Culture - Final NO GROWTH IN 5 DAYS 06/24/18 06/24/18 06/24/18 14:47 16:20 19:25 Troponin I Cancelled 0.415 0.545 Impressions: Femur X-Ray 06/24/18 13:25 IMPRESSION: NEGATIVE STUDY OF THE LEFT FEMUR. NO RADIOGRAPHIC EVIDENCE OF ACUTE INJURY. Chest X-Ray 06/24/18 13:26 IMPRESSION: Moderate cardiomegaly. No acute findings Lower Extremity CT 06/24/18 14:50 IMPRESSION: No fracture. Carotid Doppler Study 06/25/18 10:00 IMPRESSION: Greater than 70% stenosis in the right and left internal carotid arteries. This has progressed from prior study. Assessment & Plan - Diagnosis (1) ESRD (end stage renal disease) Is this a current diagnosis for this admission?: Yes Plan: Patient was seen on dialysis. Blood pressure was low despite receiving fluid and being on levophed. Patient denied increased SOB or chest pain. Orders were discussed with treating nurse. She is only able to clean the blood due to the b lood pressure. At this time due to the persistently low bp the patient may need to be transferred to a facility capable of CRRT. That way more fluid may be removed off of the patient. (2) Anemia in chronic kidney disease (CKD) Qualifiers: Chronic kidney disease stage: on chronic dialysis Qualified Code(s): N18.6 - End stage renal disease; D63.1 - Anemia in chronic kidney disease; Z99.2 - Dependence on renal dialysis Is this a current diagnosis for this admission?: Yes Plan: Will look to give 20,000 units of epogen with dialysis, on estrogen to stop the current bleed she has. (3) GI bleed Qualifiers: GI bleed type/associated pathology: anorectal hemorrhage Qualified Code(s): K62.5 - Hemorrhage of anus and rectum Is this a current diagnosis for this admission?: Yes Plan: Patient was started on estrogen yesterday to help with stopping the bleeding. (4) Hypotension Qualifiers: Hypotension type: hemodialysis-associated hypotension Qualified Code(s): I95.3 - Hypotension of hemodialysis Is this a current diagnosis for this admission?: Yes Plan: recently started on levophed, blood cultures negative x5 days. (5) Peripheral edema Is this a current diagnosis for this admission?: Yes Plan: improved since being in the hospital. Currently not able to remove anymore fluid due to her bp.
[2018-06-30 19:41] LABS: HEMATOCRIT 24.6 % (36.0-47.0); HEMOGLOBIN 8.1 g/dL (12.0-15.5); MEAN CORPUSCULAR HEMOGLOBIN 31.1 pg (27.0-33.4); MEAN CORPUSCULAR HGB CONC 32.9 g/dL (32.0-36.0); MEAN CORPUSCULAR VOLUME 95 fl (80-97); PLATELET COUNT 307 10^3/uL (150-450); RED CELL DISTRIBUTION WIDTH 17.9 % (11.5-14.0); WHITE BLOOD COUNT 17.4 10^3/uL (4.0-10.5)
--- NOTE | 2018-06-30 19:56 | PDOC PROGRESS REPORT ---
Subjective Progress Note for:: 06/30/18 Subjective:: The patient is receiving hemodialysis. The blood pressure is not tolerating it. We will initiate levo fed infusion. Reason For Visit: HYPOTENSION,ELEVATED TROPONIN GI bleed End-stage kidney disease with hemodialysis Physical Exam Vital Signs: Temp Pulse Resp BP Pulse Ox 97.6 F 68 16 93/48 L 100 06/30/18 08:00 06/30/18 08:00 06/29/18 16:56 06/30/18 08:00 06/30/18 08:00 Intake & Output 06/29/18 06/30/18 07/01/18 06:59 06:59 06:59 Intake Total 1137 775 Output Total 2000 100 0 Balance -863 675 0 Weight 58.8 kg 60.8 kg General appearance: PRESENT: cooperative, mild distress, well-developed - Frail-appearing 78-year-old female Head exam: PRESENT: normocephalic Eye exam: PRESENT: conjunctiva pale. ABSENT: scleral icterus Ear exam: PRESENT: normal external ear exam Mouth exam: PRESENT: moist, tongue midline Neck exam: ABSENT: carotid bruit, lymphadenopathy Respiratory exam: PRESENT: rales - fortunato right base, symmetrical, unlabored. ABSENT: accessory muscle use, rhonchi, wheezes Cardiovascular exam: PRESENT: RRR, +S1, +S2, systolic murmur - 3/6 Vascular exam: PRESENT: pallor GI/Abdominal exam: PRESENT: normal bowel sounds, soft. ABSENT: distended, tenderness Rectal exam: PRESENT: deferred Gentrourinary exam: PRESENT: indwelling catheter Extremities exam: ABSENT: pedal edema Neurological exam: PRESENT: alert, awake, oriented to person, oriented to place, oriented to situation, CN II-XII grossly intact Psychiatric exam: PRESENT: anxious, flat affect. ABSENT: agitated Focused psych exam: ABSENT: delusional, restlessness Skin exam: PRESENT: other - Sallow complexion Results Laboratory Results: 06/30/18 04:11 06/30/18 04:11 06/28/18 06/29/18 06/30/18 16:11 13:45 04:11 WBC 8.0 20.2 H D RBC 3.28 L 2.82 L Hgb 10.4 L D 8.7 L Hct 30.6 L 26.2 L MCV 94 93 MCH 31.8 31.1 MCHC 34.0 33.3 RDW 17.4 H 16.9 H Plt Count 343 346 Seg Neutrophils % 71.4 Lymphocytes % 13.0 Monocytes % 13.7 H Eosinophils % 0.9 Basophils % 1.0 Absolute Neutrophils 5.7 Absolute Lymphocytes 1.0 Absolute Monocytes 1.1 Absolute Eosinophils 0.1 Absolute Basophils 0.1 Sodium Potassium Chloride Carbon Dioxide Anion Gap BUN Creatinine Est GFR ( Amer) Est GFR (Non-Af Amer) Glucose Calcium Blood Type O POSITIVE Antibody Screen NEGATIVE 06/30/18 04:11 WBC RBC Hgb Hct MCV MCH MCHC RDW Plt Count Seg Neutrophils % Lymphocytes % Monocytes % Eosinophils % Basophils % Absolute Neutrophils Absolute Lymphocytes Absolute Monocytes Absolute Eosinophils Absolute Basophils Sodium 137.3 Potassium 4.6 Chloride 100 Carbon Dioxide 26 Anion Gap 11 BUN 46 H Creatinine 4.51 H Est GFR ( Amer) 11 L Est GFR (Non-Af Amer) 9 L Glucose 64 L Calcium 9.0 Blood Type Antibody Screen 06/24/18 06/24/18 06/24/18 14:47 16:20 19:25 Troponin I Cancelled 0.415 0.545 Impressions: Femur X-Ray 06/24/18 13:25 IMPRESSION: NEGATIVE STUDY OF THE LEFT FEMUR. NO RADIOGRAPHIC EVIDENCE OF ACUTE INJURY. Chest X-Ray 06/24/18 13:26 IMPRESSION: Moderate cardiomegaly. No acute findings Lower Extremity CT 06/24/18 14:50 IMPRESSION: No fracture. Carotid Doppler Study 06/25/18 10:00 IMPRESSION: Greater than 70% stenosis in the right and left internal carotid arteries. This has progressed from prior study. Assessment & Plan - Diagnosis (1) GI bleed Qualifiers: GI bleed type/associated pathology: anorectal hemorrhage Qualified Code(s): K62.5 - Hemorrhage of anus and rectum Is this a current diagnosis for this admission?: Yes Plan: Hemoglobin has drifted down again. She is receiving intravenous estrogen therapy for the multiple telangiectasias. No evidence of bright red blood per rectum. She is not having any abdominal pain. To need to monitor hemoglobin. (2) ESRD (end stage renal disease) Is this a current diagnosis for this admission?: Yes Plan: Still with poor tolerance for hemodialysis. She required levo fed today. I do not believe dialysis was able to get much fluid off. Will review with the production reproduction manager about possible chronic renal replacement therapy to see if she will tolerate this more so than hemodialysis. She would need transfer to a facility that provides this service. (3) Hypotension Qualifiers: Hypotension type: hemodialysis-associated hypotension Qualified Code(s): I95.3 - Hypotension of hemodialysis Is this a current diagnosis for this admission?: Yes Plan: As above, the patient required levo fed during dialysis today despite midodrine. She does have an elevated white blood cell count but does not appear to be septic. She is afebrile. We will continue to monitor. (4) Peripheral edema Is this a current diagnosis for this admission?: Yes Plan: Stable. Would likely improve if we were able to get more fluid off during dialysis. (5) Hypothyroidism Qualifiers: Hypothyroidism type: unspecified Qualified Code(s): E03.9 - Hypothyroidism, unspecified Is this a current diagnosis for this admission?: Yes Plan: Levothyroxine and liothyronine have been resumed. - Time Time Spent with patient: 35 or more minutes Medications reviewed and adjusted accordingly: Yes
[2018-06-30] MEDS: LIDOCAINE 5% (700 MG) TRANSDERMAL ADH..PATCH TP SCH (21:05)
[2018-06-30] MEDS ORDERED: DESMOPRESSIN ACETATE INJ 4 MCG/1 ML AMPULE IV ONE (21:15)
[2018-06-30] MEDS: HEPARIN SOD (PORCINE) 5,000 UNIT/ML 1 ML SYRINGE SUBCUT SCH (21:21)
[2018-06-30] MEDS ORDERED: DESMOPRESSIN ACETATE IV ONE (21:30)
[2018-06-30] MEDS ORDERED: NORMAL SALINE IV ONE (21:30)
--- NOTE | 2018-06-30 22:22 | Progress Note ---
Provider Note Provider Note: Events noted. After almost 24 hrs of no rectal bleeding, the patient presented with a large amount of clots per rectum the same as before the colonoscopy, She is asymptomatic. 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 3) If this bleeding persists, patient will have to be transferred to an outside institution where either the [employer] Beam Construction Assistant or another form of laser can be used to definitively or temporarily control the rectal mucosal bleeding. However, this might become a chronic and difficult to treat problem even in the best hands and after the above laser treatment.
[2018-07-01 05:06] LABS: RED CELL DISTRIBUTION WIDTH 17.5 % (11.5-14.0)
[2018-07-01 05:11] LABS: ANION GAP 8 (5-19); BLOOD UREA NITROGEN 41 mg/dL (7-20); CALCIUM 8.2 mg/dL (8.4-10.2); CARBON DIOXIDE 32 mmol/L (22-30); CHLORIDE 99 mmol/L (98-107); GLUCOSE 144 mg/dL (75-110); POTASSIUM 3.6 mmol/L (3.6-5.0); SODIUM 138.7 mmol/L (137-145)
[2018-07-01 05:24] LABS: HEMATOCRIT 20.8 % (36.0-47.0); MEAN CORPUSCULAR HEMOGLOBIN 32.7 pg (27.0-33.4); MEAN CORPUSCULAR HGB CONC 33.5 g/dL (32.0-36.0); MEAN CORPUSCULAR VOLUME 98 fl (80-97); PLATELET COUNT 279 10^3/uL (150-450); RED BLOOD COUNT 2.13 10^6/uL (3.72-5.28); WHITE BLOOD COUNT 16.8 10^3/uL (4.0-10.5)
[2018-07-01] MEDS: LEVOTHYROXINE SODIUM 0.1 MG TABLET PO SCH (05:49)
--- NOTE | 2018-07-01 08:24 | PDOC PROGRESS REPORT ---
Subjective Progress Note for:: 07/01/18 Subjective:: Had bright red blood per rectum last night. No abdominal pain. Reason For Visit: HYPOTENSION,ELEVATED TROPONIN Physical Exam Vital Signs: Temp Pulse Resp BP Pulse Ox 97.9 F 78 18 120/49 L 100 07/01/18 05:47 06/30/18 23:46 07/01/18 06:00 07/01/18 05:56 07/01/18 06:00 Intake & Output 06/30/18 07/01/18 07/02/18 06:59 06:59 06:59 Intake Total 775 890.5 Output Total 100 1052 Balance 675 -161.5 Weight 60.8 kg 62.9 kg General appearance: PRESENT: no acute distress, cooperative Respiratory exam: PRESENT: clear to auscultation naeem Cardiovascular exam: PRESENT: RRR, systolic murmur GI/Abdominal exam: PRESENT: other - Soft, nondistended, nontender to palpation. Results Laboratory Results: 07/01/18 04:17 07/01/18 04:17 06/28/18 06/30/18 07/01/18 16:11 19:33 04:17 WBC 17.4 H 16.8 H RBC 2.60 L 2.13 L Hgb 8.1 L 7.0 L Hct 24.6 L 20.8 L MCV 95 98 H MCH 31.1 32.7 MCHC 32.9 33.5 RDW 17.9 H 17.5 H Plt Count 307 279 Sodium Potassium Chloride Carbon Dioxide Anion Gap BUN Creatinine Est GFR ( Amer) Est GFR (Non-Af Amer) Glucose Calcium Blood Type O POSITIVE Antibody Screen NEGATIVE 07/01/18 04:17 WBC RBC Hgb Hct MCV MCH MCHC RDW Plt Count Sodium 138.7 Potassium 3.6 Chloride 99 Carbon Dioxide 32 H Anion Gap 8 BUN 41 H Creatinine 3.92 H Est GFR ( Amer) 13 L Est GFR (Non-Af Amer) 11 L Glucose 144 H Calcium 8.2 L Blood Type Antibody Screen 06/25/18 18:37 Blood Blood Culture - Final NO GROWTH IN 5 DAYS 06/25/18 13:50 Blood Blood Culture - Final NO GROWTH IN 5 DAYS 06/24/18 06/24/18 06/24/18 14:47 16:20 19:25 Troponin I Cancelled 0.415 0.545 Impressions: Femur X-Ray 06/24/18 13:25 IMPRESSION: NEGATIVE STUDY OF THE LEFT FEMUR. NO RADIOGRAPHIC EVIDENCE OF ACUTE INJURY. Chest X-Ray 06/24/18 13:26 IMPRESSION: Moderate cardiomegaly. No acute findings Lower Extremity CT 06/24/18 14:50 IMPRESSION: No fracture. Carotid Doppler Study 06/25/18 10:00 IMPRESSION: Greater than 70% stenosis in the right and left internal carotid arteries. This has progressed from prior study. Assessment & Plan - Diagnosis (1) GI bleed Is this a current diagnosis for this admission?: Yes Plan: Colonic source of bleed due to telangiectasias. Continuing to bleed last night. Hematocrit has dropped. Will transfuse 2 units of blood. No gastroenterology fire control technician b here for next several days. I have discussed with hospitalist about transfer to tertiary care facility as soon as possible for endoscopic intervention.
--- NOTE | 2018-07-01 09:29 | PDOC TRANSFER SUMMARY ---
General Admission Date/PCP: 06/24/18 18:11 MARISOL IRELAND MD Transfer Date: 07/01/18 Resuscitation Status: Full Code - Transfer Diagnosis (1) GI bleed Is this a current diagnosis for this admission?: Yes Diagnosis Summary: This is a pleasant 78-year-old female who was initially admitted on June 24 for severe hypotension during dialysis. Her hemoglobin on admission was 8.1. She does have anemia associated with her chronic kidney disease. While in the hospital she developed bright red blood per rectum on June 28. Her hemoglobin at that time was 6.5 with hematocrit of 19. She received 2 units of packed red blood cells. Her hemoglobin and hematocrit improved to 10.4 and 30. She underwent gastroscopy and colonoscopy on June 29. Multiple actively bleeding telangiectasias were identified in the rectosigmoid colon. Gelfoam was applied which appeared to stop the bleeding. Her hemoglobin decreased to 8.1 on June 30 at 7 PM with a hematocrit of 24.6. This morning H&H was 7 and 21. 2 more units of packed red blood cells are going to administer urgently. We are going to transfer her to a tertiary care facility for additional treatment. At this point she may require surgical intervention. Her blood pressure dropped on hemodialysis yesterday and she required levo fed but was able to taper off after hemodialysis. Her blood pressure this morning is 112/43 with a heart rate of 80 and respiratory rate of 22. Her pulse ox is 99% on 2 L. She is currently not on pressor therapy. (2) ESRD (end stage renal disease) Is this a current diagnosis for this admission?: Yes Diagnosis Summary: The patient has end-stage kidney disease and is on hemodialysis on Thursday and Thursday. Her initial admission on June 24 was related to a significant drop in blood pressure during outpatient hemodialysis. It is reported that her systolic pressure dropped to 49. She did exhibit altered mental status and a syncopal episode. She has needed levo fed during dialysis despite being on midodrine 10 mg 3 times a day. She is anuric and therefore all of her fluid management is based on hemodialysis. She does have rales this morning but only requires 2 L nasal cannula oxygen to maintain saturation of 99%. (3) Hypotension Is this a current diagnosis for this admission?: Yes Diagnosis Summary: As noted above the patient required 4 mcg/min of levo fed during hemodialysis yesterday. She has required vasopressors for each dialysis treatment. They were unable to pull much fluid off yesterday because of the hypotension. It is still unclear if the hypotension during dialysis was related at all to the GI bleeding especially since there is no evidence of bleeding when she was first admitted because of the intra-dialysis drop in blood pressure. (4) Peripheral edema Is this a current diagnosis for this admission?: Yes Diagnosis Summary: The patient initially had marked edema and volume overload. With the use of vasopressors there were able to pull fluid from hemodialysis. She still has peripheral edema but it is closer to her baseline. (5) Hypothyroidism Is this a current diagnosis for this admission?: Yes Diagnosis Summary: The patient has been stable on her levothyroxine and liothyronine. (6) Coronary artery disease Is this a current diagnosis for this admission?: Yes Diagnosis Summary: The patient has a history of coronary artery disease. Recent echocardiogram revealed mild to moderate areas of hypokinesis of the left ventricle. Her ejection fraction was approximately 50%. Her aspirin has been held because of the bleeding. She is not on other medications because of the hypotension. At home she is also on a fenofibrate and rouvastatin. She has not exhibited any chest pain or pressure during her hospitalization. - Transfer Medications Home Medications: Aspirin [Ecotrin 81 mg EC Tablet] 81 mg PO DAILY 01/09/17 Bumetanide [Bumex 1 mg Tablet] 0.5 mg PO Q12 01/09/17 Zolpidem Tartrate [Ambien] 10 mg PO QHS 01/09/17 Calcium Acetate [Phoslo 667 Mg Capsule] 667 mg PO TID 08/13/17 Liothyronine Sodium 10 mcg PO DAILY 08/13/17 Midodrine HCl [Proamatine 5 Mg Tablet] 10 mg PO BIDP PRN 08/13/17 Pantoprazole Sodium 40 mg PO DAILY 08/13/17 Pramipexole Di-HCl [Mirapex 0.5 Mg Tablet] 0.5 mg PO QHS 08/13/17 Rosuvastatin Calcium 5 mg PO DAILY 08/13/17 Vit B Comp No.3/Folic/C/Biotin [Alice-Sharmaine Rx Tablet] 1 each PO DAILY 08/13/17 Estrogens, Conjugated [Premarin 0.45 mg Tablet] 0.45 mg PO DAILY 06/24/18 Fenofibric Acid (Choline) [Fenofibric Acid] 135 mg PO DAILY 06/24/18 Furosemide [Lasix 40 mg Tablet] 40 mg PO Q12 06/24/18 Hydromorphone HCl [Dilaudid] 4 mg PO QIDP PRN 06/24/18 Levothyroxine Sodium [Synthroid] 125 mcg PO DAILY 06/24/18 Metolazone [Zaroxolyn 5 mg Tablet] 5 mg PO DAILY 06/24/18 Transfer Medications: Current Medications Acetaminophen (Tylenol 325 Mg Tablet) 650 mg PO Q6HP PRN PRN Reason: FOR PAIN Stop: 07/24/18 18:57 Last Admin: 06/26/18 06:23 Dose: 650 mg Documented by: Aspirin (Aspirin 81 Mg Chewable Tablet) 81 mg PO DAILY TAZ Stop: 07/25/18 09:59 Last Admin: 06/29/18 16:09 Dose: Not Given Documented by: Calcium Acetate (Phoslo 667 Mg Capsule) 667 mg PO AC TAZ Stop: 07/25/18 07:59 Last Admin: 06/30/18 16:32 Dose: 667 mg Documented by: Dextrose (Dextrose Inj 50% Syringe (25 Gm/50 Ml)) 12.5 gm IV PRN PRN; Protocol PRN Reason: FOR BG 50-69 IN ALERT PATIENT Stop: 07/29/18 07:05 Dextrose (Dextrose Inj 50% Syringe (25 Gm/50 Ml)) 25 gm IV PRN PRN; Protocol PRN Reason: See Label Comments Stop: 07/29/18 07:05 Fludrocortisone Acetate (Florinef 0.1 Mg Tablet) 0.05 mg PO DAILY TAZ Stop: 07/29/18 09:59 Last Admin: 06/30/18 12:47 Dose: 0.05 mg Documented by: Glucagon (Glucagen Inj 1 Mg Vial) 1 mg SUBCUT PRN PRN; Protocol PRN Reason: Evaluate for BG < 70 Stop: 07/29/18 07:05 Glucose (Glutose 40% Gel 15 Gm Tube) 15 gm PO PRN PRN; Protocol PRN Reason: For BG 50-69 in Alert Patient Stop: 07/29/18 07:05 Glucose (Glutose 40% Gel 15 Gm Tube) 30 gm PO PRN PRN; Protocol PRN Reason: FOR BG < 50 IN ALERT PATIENT Stop: 07/29/18 07:05 Heparin Sodium (Porcine) (Heparin Inj 5,000 Units/Ml 1 Ml Syringe) 5,000 unit SUBCUT Q12 TAZ Stop: 07/24/18 21:59 Last Admin: 06/30/18 21:21 Dose: Not Given Documented by: Estrogens Conjugated 35 mg/ (Sodium Chloride) 50 mls @ 100 mls/hr IV QPM TAZ Stop: 07/03/18 18:29 Last Infusion: 06/30/18 18:22 Dose: Infused Documented by: Norepinephrine Bitartrate 4 mg (/ Dextrose) 250 mls @ 0 mls/hr IV CONTINUOUS PRN; Protocol PRN Reason: THIS MED IS NOT "PRN" Stop: 07/30/18 08:32 Last Titration: 06/30/18 14:44 Dose: 0 mcg/min, 0 mls/hr Documented by: Levothyroxine Sodium (Synthroid 0.1 Mg Tablet) 0.1 mg PO Q6AM TAZ Stop: 07/30/18 05:59 Last Admin: 07/01/18 05:49 Dose: 0.1 mg Documented by: Lidocaine (Lidoderm 5% (700 Mg) Transdermal Patch) 1 patch TP DAILY@1999 [facility] Stop: 07/24/18 19:59 Last Admin: 06/30/18 21:05 Dose: 1 patch Documented by: Liothyronine Sodium (Cytomel 5 Mcg Tablet) 10 mcg PO DAILY TAZ Stop: 07/30/18 09:59 Last Admin: 06/30/18 12:49 Dose: 10 mcg Documented by: Midodrine (Proamatine 5 Mg Tablet) 10 mg PO TID@0800,1300,1800 [facility] Stop: 07/26/18 12:59 Last Admin: 06/30/18 17:11 Dose: 10 mg Documented by: Morphine Sulfate (Morphine 10 Mg/Ml Inj) 4 mg IV Q4HP PRN PRN Reason: FOR PAIN Stop: 07/06/18 19:38 Last Admin: 06/30/18 00:48 Dose: 4 mg Documented by: Sodium Chloride (Saline Flush 2.5 Ml Monoject Prefil Syrin) 2.5 ml IV Q8 TAZ Stop: 07/24/18 21:59 Last Admin: 07/01/18 05:49 Dose: 2.5 ml Documented by: Tramadol HCl (Ultram 50 Mg Tablet) 25 mg PO Q6HP PRN PRN Reason: FOR PAIN Stop: 07/03/18 08:27 Last Admin: 06/30/18 14:36 Dose: 25 mg Documented by: - Allergies Allergies/Adverse Reactions: No Known Allergies Allergy (Verified 06/24/18 13:29) - Diet/Activity Discharge Diet: Other (Comments) - Hemodialysis/cardiac/diabetic diet. She is currently n.p.o. for transfer. Discharge Activity: Bedrest Hospital Course Hospital Course: As outlined above Physical Exam Vital Signs: Temp Pulse Resp BP Pulse Ox 97.3 F 83 14 112/43 L 100 07/01/18 08:00 07/01/18 08:00 07/01/18 08:00 07/01/18 08:00 07/01/18 08:00 Intake & Output 06/30/18 07/01/18 07/02/18 06:59 06:59 06:59 Intake Total 775 890.5 Output Total 100 1052 Balance 675 -161.5 Weight 60.8 kg 62.9 kg General appearance: PRESENT: mild distress, well-developed, other - Frail-a ppearing 78-year-old female with anxiety regarding her current status and pending transfer. Head exam: PRESENT: normocephalic Eye exam: PRESENT: conjunctiva pale. ABSENT: scleral icterus Ear exam: PRESENT: normal external ear exam Mouth exam: PRESENT: moist, tongue midline Neck exam: ABSENT: carotid bruit, lymphadenopathy Respiratory exam: PRESENT: rales - Bilateral bases, symmetrical, unlabored. ABSENT: accessory muscle use, wheezes Cardiovascular exam: PRESENT: RRR, +S1, +S2, systolic murmur - 3/6 GI/Abdominal exam: PRESENT: normal bowel sounds, soft. ABSENT: tenderness Rectal exam: PRESENT: other - Bright red blood per rectum Gentrourinary exam: PRESENT: other - Patient is anuric Extremities exam: PRESENT: pedal edema Neurological exam: PRESENT: alert, awake, oriented to person, oriented to place, oriented to time, oriented to situation, CN II-XII grossly intact Psychiatric exam: PRESENT: anxious, appropriate affect. ABSENT: agitated Focused psych exam: ABSENT: delusional, restlessness Skin exam: PRESENT: other - Sallow complexion Results Laboratory Results: 07/01/18 04:17 07/01/18 04:17 06/28/18 06/29/18 06/30/18 16:11 04:40 19:33 WBC 17.4 H RBC 2.60 L Hgb 8.1 L Hct 24.6 L MCV 95 MCH 31.1 MCHC 32.9 RDW 17.9 H Plt Count 307 Sodium Potassium Chloride Carbon Dioxide Anion Gap BUN Creatinine Est GFR ( Amer) Est GFR (Non-Af Amer) Glucose Calcium Total Protein 4.7 L Albumin 2.4 L Blood Type O POSITIVE Antibody Screen NEGATIVE 07/01/18 07/01/18 04:17 04:17 WBC 16.8 H RBC 2.13 L Hgb 7.0 L Hct 20.8 L MCV 98 H MCH 32.7 MCHC 33.5 RDW 17.5 H Plt Count 279 Sodium 138.7 Potassium 3.6 Chloride 99 Carbon Dioxide 32 H Anion Gap 8 BUN 41 H Creatinine 3.92 H Est GFR ( Amer) 13 L Est GFR (Non-Af Amer) 11 L Glucose 144 H Calcium 8.2 L Total Protein Albumin Blood Type Antibody Screen 06/25/18 18:37 Blood Blood Culture - Final NO GROWTH IN 5 DAYS 06/25/18 13:50 Blood Blood Culture - Final NO GROWTH IN 5 DAYS 06/24/18 06/24/18 06/24/18 14:47 16:20 19:25 Troponin I Cancelled 0.415 0.545 Impressions: Femur X-Ray 06/24/18 13:25 IMPRESSION: NEGATIVE STUDY OF THE LEFT FEMUR. NO RADIOGRAPHIC EVIDENCE OF ACUTE INJURY. Chest X-Ray 06/24/18 13:26 IMPRESSION: Moderate cardiomegaly. No acute findings Lower Extremity CT 06/24/18 14:50 IMPRESSION: No fracture. Carotid Doppler Study 06/25/18 10:00 IMPRESSION: Greater than 70% stenosis in the right and left internal carotid arteries. This has progressed from prior study. Plan Discharge Plan: The patient has been accepted at [facility] for transfer. Arrangements are being made for transportation. The patient is aware and agrees. Time Spent: Greater than 30 Minutes
[2018-07-01] MEDS: CALCIUM ACETATE 667 MG CAPSULE PO SCH ×2 (09:33→12:14)
[2018-07-01] MEDS: TRAMADOL HCL 50 MG TABLET PO PRN (09:44)
[2018-07-01] MEDS: MIDODRINE HCL 5 MG TABLET PO SCH (09:50)
[2018-07-01] MEDS: FLUDROCORTISONE ACETATE 0.1 MG TABLET PO SCH (09:51)
[2018-07-01] MEDS: LIOTHYRONINE SODIUM 5 MCG TABLET PO SCH (09:51)
--- NOTE | 2018-07-01 10:54 | RADIOLOGY REPORT (SQ) ---
EXAM DESCRIPTION: CHEST SINGLE VIEW COMPLETED DATE/TIME: 07/01/2018 9:56 am REASON FOR STUDY: Resp. Failure, COMPARISON: 06/24/2018 EXAM PARAMETERS: NUMBER OF VIEWS: One view. TECHNIQUE: Single frontal radiographic view of the chest acquired. RADIATION DOSE: NA LIMITATIONS: None. FINDINGS: LUNGS AND PLEURA: No opacities, masses or pneumothorax. No pleural effusion. MEDIASTINUM AND HILAR STRUCTURES: No masses. Contour normal. HEART AND VASCULAR STRUCTURES: Cardiomegaly. Normal vasculature. BONES: No acute findings. HARDWARE: CABG. OTHER: No other significant finding. IMPRESSION: NO ACUTE RADIOGRAPHIC FINDING IN THE CHEST. TECHNICAL DOCUMENTATION: JOB ID: [id number] [employer]- All Rights Reserved Reading location - IP/workstation name: [email or web address]
[2018-07-01] MEDS: MORPHINE SULFATE 10 MG/ML INJ IV PRN (12:14)
--- NOTE | 2018-07-01 12:43 | OPERATIVE REPORT E ---
Operative Report NAME: WOODROW HAYS : 1940 AGE: 78Y DATE OF SURGERY: 06/29/2018 ROOM: 605 PREOPERATIVE DIAGNOSIS: Lower gastrointestinal bleeding of unknown cause and origin. POSTOPERATIVE DIAGNOSES: 1. Lower gastrointestinal bleeding from the rectosigmoid. 2. Rectosigmoid telangiectasia with active bleeding. 3. Sigmoid diverticulosis. PROCEDURE: 1. Esophagogastroduodenoscopy. 2. Colonoscopy to 100 cm with biopsy. SURGEON: HALLIE WALDRON M.D. COMPLICATIONS: None. FLUIDS: 400. BLOOD LOSS: Not measured. ANESTHESIA: MAC provided by anesthesiologist. INDICATIONS AND FINDINGS: This 78-year-old female admitted because of diastolic hypotension following dialysis with a diastolic in the 40s and 30s. The patient underwent dialysis yesterday while inpatient and after dialysis she developed initially liquid stools followed by several bouts of stools mixed with large blood clots; this continued until this morning. Surgery specialty was consulted. The patient was given 2 units of blood because of the lower hemoglobin and hematocrit of 7.6 and 21 respectively, this morning. She was then given about 20 mcg DDAVP in attempt to improve the functionality of the platelets. The platelet count was within normal limits. Scheduled to undergo a bowel prep, a colonoscopy for tomorrow. However, the patient presented with additional blood clots per rectum and even though she was hemodynamically unstable, the decision was made to take to surgery to undergo an upper and lower endoscopy. Procedure, benefits, complications explained to the patient. She understands and decided to proceed. DESCRIPTION OF PROCEDURE: The procedure was done in the operating room. The patient was placed lateral decubitus. IV sedation provided by anesthesiologist. The gastroscope was inserted without difficulty through the mouth, esophagus, stomach, and duodenum. Preparation was good. No masses, polyps, fissures indentations, mucosal changes, or blood clots were noted. Large amount of bile was seen in the duodenum and the stomach. The instrument was then slowly withdrawn and the esophagus appeared to be normal. The colonoscopy was performed by placing the patient lateral decubitus and the scope was inserted at first into the rectum and advanced to the proximal rectum and then to the sigmoid. The sigmoid curves were negotiated. In the entire rectum and sigmoid a moderate amount of blood and blood clots were noted. Examination of the mucosa revealed several actual bleeding telangiectasias, as well as diverticula. The instrument was then advanced through the sigmoid colon up to the descending colon and advanced up to about 100 cm. The mucosa of the colon was clear from disease and no areas of bleeding or blood clots were noted in the descending colon. All the blood and the blood clots were noted at the level of the distal sigmoid and the rectum. During the procedure a large amount of irrigation was utilized. The mucosa of the descending and sigmoid colon was then biopsied and biopsy sent for pathology. Stool washings were obtained, sent for stool cultures, C. diff, and white blood cell count. The instrument was then slowly withdrawn from the descending colon into the sigmoid colon, and again in the sigmoid colon a few areas of bleeding from telangiectasias was noted. When we reached the rectum no additional bleeding was noted. The telangiectasia oozing stopped spontaneously, the blood clots were evacuated spontaneously by the patient during the procedure, and the rectum appeared to be clean from any active bleeding. Attempt was made to retroflex the instrument; this was unsuccessful because of the patient's lack of rectal tone. So the instrument was then removed. The instrument was then reinserted with a clear examination of the rectal, rectosigmoid and again no active bleeding was noted anymore. The instrument was then slowly removed without any difficulty and visual inspection of the rectosigmoid did not reveal any masses or lesions or any active bleeding. The patient tolerated the procedure well and transferred to the recovery room in satisfactory condition. DICTATING PHYSICIAN: HALLIE WALDRON M.D. [id number] PHY#: [id number] ID: [id number] JOB#: [id number] ACCT: [id number] cc:HALLIE WALDRON M.D. > MTDD
--- NOTE | 2018-07-01 12:53 | PDOC PROGRESS REPORT ---
Subjective Progress Note for:: 07/01/18 Reason For Visit: Patient seen briefly in the ICU she is in the process of being transferred because of a drop in hemoglobin. Patient was transferred to ICU yesterday because of continuing drop in hemoglobin in spite of ongoing multiple transfusions suggestive of active lower GI bleed from her large area of multiple AVMs. Patient denies any history of abdominal pains, fever or chills. Vital signs are stable. Labs were reviewed. Discussions were done with her daughter and son by the bedside at length. Physical Exam Vital Signs: Temp Pulse Resp BP Pulse Ox 97.0 F 72 19 108/53 L 100 07/01/18 12:10 07/01/18 12:10 07/01/18 12:10 07/01/18 12:10 07/01/18 12:10 Intake & Output 06/30/18 07/01/18 07/02/18 06:59 06:59 06:59 Intake Total 775 890.5 350 Output Total 100 1052 Balance 675 -161.5 350 Weight 60.8 kg 62.9 kg General appearance: PRESENT: no acute distress Respiratory exam: PRESENT: clear to auscultation naeem. ABSENT: crackles Cardiovascular exam: PRESENT: +S1, +S2 GI/Abdominal exam: PRESENT: normal bowel sounds, soft. ABSENT: organomegaly, tenderness Extremities exam: ABSENT: pedal edema Neurological exam: PRESENT: alert, awake, oriented to person, oriented to place Results Laboratory Results: 07/01/18 04:17 07/01/18 04:17 06/28/18 06/29/18 06/30/18 16:11 04:40 19:33 WBC 17.4 H RBC 2.60 L Hgb 8.1 L Hct 24.6 L MCV 95 MCH 31.1 MCHC 32.9 RDW 17.9 H Plt Count 307 Sodium Potassium Chloride Carbon Dioxide Anion Gap BUN Creatinine Est GFR ( Amer) Est GFR (Non-Af Amer) Glucose Calcium Total Protein 4.7 L Albumin 2.4 L Blood Type O POSITIVE Antibody Screen NEGATIVE 07/01/18 07/01/18 04:17 04:17 WBC 16.8 H RBC 2.13 L Hgb 7.0 L Hct 20.8 L MCV 98 H MCH 32.7 MCHC 33.5 RDW 17.5 H Plt Count 279 Sodium 138.7 Potassium 3.6 Chloride 99 Carbon Dioxide 32 H Anion Gap 8 BUN 41 H Creatinine 3.92 H Est GFR ( Amer) 13 L Est GFR (Non-Af Amer) 11 L Glucose 144 H Calcium 8.2 L Total Protein Albumin Blood Type Antibody Screen 06/25/18 18:37 Blood Blood Culture - Final NO GROWTH IN 5 DAYS 06/25/18 13:50 Blood Blood Culture - Final NO GROWTH IN 5 DAYS 06/24/18 06/24/18 06/24/18 14:47 16:20 19:25 Troponin I Cancelled 0.415 0.545 Impressions: Femur X-Ray 06/24/18 13:25 IMPRESSION: NEGATIVE STUDY OF THE LEFT FEMUR. NO RADIOGRAPHIC EVIDENCE OF ACUTE INJURY. Lower Extremity CT 06/24/18 14:50 IMPRESSION: No fracture. Carotid Doppler Study 06/25/18 10:00 IMPRESSION: Greater than 70% stenosis in the right and left internal carotid arteries. This has progressed from prior study. Chest X-Ray 07/01/18 09:39 IMPRESSION: NO ACUTE RADIOGRAPHIC FINDING IN THE CHEST. Assessment & Plan - Diagnosis (1) ESRD (end stage renal disease) Is this a current diagnosis for this admission?: Yes Plan: She is being transferred and so not placing the orders for dialysis for tomorrow. (2) Anemia in chronic kidney disease (CKD) Qualifiers: Chronic kidney disease stage: on chronic dialysis Qualified Code(s): N18.6 - End stage renal disease; D63.1 - Anemia in chronic kidney disease; Z99.2 - Dependence on renal dialysis Is this a current diagnosis for this admission?: Yes Plan: Colonoscopy shows a large segment at the sigmoid rectal junction with multiple AVMs as per discussions were done with the surgeon. Patient continues to drop her hemoglobin in spite of multiple transfusions. She was given DDAVP followed by IV estrogens but still unable to maintain hemoglobin. Patient being transferred to tertiary care.t. (3) Elevated troponin Is this a current diagnosis for this admission?: Yes Plan: As per hospitalist.Likely from demand ischemia. However she has got echocardiogram does suggest possible underlying ischemic cardiomyopathy.The daughter by the bedside mentions that the patient saw the hotel recreational facilities manager a month or so ago he did an echocardiogram and mentioned that she possibly had an acute FL. However no further cardiac risk stratification was done. (4) Hypotension Qualifiers: Hypotension type: hemodialysis-associated hypotension Qualified Code(s): I95.3 - Hypotension of hemodialysis Is this a current diagnosis for this admission?: Yes Plan: Patient's blood pressure has always been chronically low. Apparently she has been ruled out for Shon's and she has been placed on Midodrin which has been maxed out. I recently also began on Florinefon a low dose. She is relatively stable at the moment but obviously given her active lower GI bleed the blood pressure is still going to be tenuous. (5) Syncope Qualifiers: Syncope type: unspecified Qualified Code(s): R55 - Syncope and collapse Is this a current diagnosis for this admission?: Yes Plan: Possibly multifactorial. Obviously low blood pressures would be the major culprit. However recent carotid Dopplers shows recent progression of bilateral carotid artery stenosis more than 70%. In view of this I would suggest that her blood pressures are maintained at least around 110 or so systolic if possible. Discussed with the nurse that avoidance of low blood pressures is imperative given her progressive possible critical carotid artery stenosis.
[2018-07-01 13:05] VITALS: BP 116/47
== END 2018-07-01 13:00 | disposition short-term general hospital (02) | DRG 299 ==
LOC: ER 12:49 → EH 18:11 → OBSVTOIN 18:11 → 4W 20:37 → ICU 22:59 → 3S 06-27 23:16 → ICU 06-29 17:16
PROVIDERS: ADMIT Internal Medicine; ATTEND Internal Medicine
PROC: 5A1D70Z Performance of Urinary Filtration, Intermittent, Less than 6 Hours Per Day (ICD-10-PCS; 2018-06-28)
PROC: 30233N1 Transfusion of Nonautologous Red Blood Cells into Peripheral Vein, Percutaneous Approach (ICD-10-PCS; 2018-06-28)
PROC: 0DJ08ZZ Inspection of Upper Intestinal Tract, Via Natural or Artificial Opening Endoscopic (ICD-10-PCS; 2018-06-29)
PROC: 30233N1 Transfusion of Nonautologous Red Blood Cells into Peripheral Vein, Percutaneous Approach (ICD-10-PCS; 2018-06-29)
PROC: 0DBM8ZX Excision of Descending Colon, Via Natural or Artificial Opening Endoscopic, Diagnostic (ICD-10-PCS; principal; 2018-06-29 13:45)
PROC: 0DBN8ZX Excision of Sigmoid Colon, Via Natural or Artificial Opening Endoscopic, Diagnostic (ICD-10-PCS; 2018-06-29 13:45)
PROC: 5A1D70Z Performance of Urinary Filtration, Intermittent, Less than 6 Hours Per Day (ICD-10-PCS; 2018-06-30)
PROC: 30233R1 Transfusion of Nonautologous Platelets into Peripheral Vein, Percutaneous Approach (ICD-10-PCS; 2018-06-30)
PROC: 30233N1 Transfusion of Nonautologous Red Blood Cells into Peripheral Vein, Percutaneous Approach (ICD-10-PCS; 2018-07-01)
DX: I78.0 Hereditary hemorrhagic telangiectasia (principal); N18.6 End stage renal disease; K57.31 Diverticulosis of large intestine without perforation or abscess with bleeding; I24.8 Other forms of acute ischemic heart disease; I12.0 Hypertensive chronic kidney disease with stage 5 chronic kidney disease or end stage renal disease; E46 Unspecified protein-calorie malnutrition; E11.22 Type 2 diabetes mellitus with diabetic chronic kidney disease; E88.09 Other disorders of plasma-protein metabolism, not elsewhere classified; Z99.2 Dependence on renal dialysis; I95.3 Hypotension of hemodialysis; I07.1 Rheumatic tricuspid insufficiency; D63.1 Anemia in chronic kidney disease; I35.0 Nonrheumatic aortic (valve) stenosis; I25.10 Atherosclerotic heart disease of native coronary artery without angina pectoris; E78.5 Hyperlipidemia, unspecified; M19.90 Unspecified osteoarthritis, unspecified site; M54.5 Low back pain; M25.559 Pain in unspecified hip; G89.29 Other chronic pain; R55 Syncope and collapse; R60.9 Edema, unspecified; E03.9 Hypothyroidism, unspecified; Z96.642 Presence of left artificial hip joint; Z79.82 Long term (current) use of aspirin; Z91.81 History of falling; Z95.5 Presence of coronary angioplasty implant and graft; Z87.891 Personal history of nicotine dependence; Z68.24 Body mass index [BMI] 24.0-24.9, adult; Z82.49 Family history of ischemic heart disease and other diseases of the circulatory system
CPT/HCPCS: 00813; 36415; 36430; 43235; 45380; 71045; 80048; 80053; 82533; 82607; 82728; 82746; 82962; 83540; 83550; 84165; 84443; 84484; 85025; 85027; 85045; 85610; 85730; 86850; 86900; 86901; 86920; 87040; 87045; 87205; 87493; 88305; 93005; 93010; 93306; 93880; 93970; 99285; J1100; J1410; J1642; J1644; J2270; J2405; J2597; J2704; J3490; J7060; P9016; P9035; P9047; Q4081

== ENCOUNTER 2018-08-03 17:09 | Emergency (ER) | payer MEDICARE, OTHER ==
--- NOTE | 2018-08-03 18:15 | ER Document Report ---
ED Medical Screen (RME) - General Chief Complaint: Shortness Of Breath Stated Complaint: DIFFICULTY BREATHING,SWELLING Time Seen by Provider: 08/03/18 18:05 Primary Care Provider: MARISOL IRELAND MD [EMERITUS] - Follow up as needed Mode of Arrival: Wheelchair Information source: Patient Notes: pt sent over from dr ireland's office for CHF. Daughter reports PA at Dr. ireland's o ffice said she was feeling up with fluids. Reports patient was recently admitted for congestive heart failure. Also has erythema swelling to the right forearm. Patient is a dialysis patient. She also reports she is gained 20 pounds in the last month. I have greeted and performed a rapid initial assessment of this patient. A comprehensive ED assessment and evaluation of the patient, analysis of test results and completion of the medical decision making process will be conducted by additional ED providers. TRAVEL OUTSIDE OF THE [place] IN LAST 30 DAYS: No - Related Data Allergies/Adverse Reactions: No Known Allergies Allergy (Verified 08/03/18 17:14) Past Medical History - Social History Family history: None - Past Medical History Cardiac Medical History: Reports: Hx Coronary Artery Disease, Hx Heart Attack - no mi. 2 stents, Hx Hypercholesterolemia, Hx Hypertension Pulmonary Medical History: Reports: Hx Pneumonia Denies: Hx Asthma, Hx Bronchitis, Hx COPD Neurological Medical History: Denies: Hx Cerebrovascular Accident, Hx Seizures Endocrine Medical History: Reports: Hx Diabetes Mellitus Type 2 - borderline in the past, Renal/ Medical History: Reports: Hx End Stage Renal Disease, Hx Hemodialysis, Hx Renal Insufficiency. Denies: Hx Peritoneal Dialysis - hemo-dialysis tomorrow Musculoskeltal Medical History: Reports Hx Arthritis - GENERALIZED worse on her hips, cardiac clearance note given for hip replace Past Surgical History: Reports: Hx Abdominal Surgery - infection bowel/ reversed colostomy-2004, Hx Bowel Surgery - colon ruptured-2002, Hx Cardiac Catheterization - 1992, Hx Cardiac Surgery - collapsed artery-1992, Hx Cholecystectomy, Hx Gynecologic Surgery, Hx Hysterectomy, Hx Ileostomy, Hx Kidney (Renal Surgery) - cystectomy-2002, Hx Orthopedic Surgery - total left hip arthroplasty-2000, Hx Vascular Surgery, Other - Surgery with colostomy followed by colostomy closure - Immunizations Hx Diphtheria, Pertussis, Tetanus Vaccination: Yes Physical Exam - Vital signs Vitals: Temp Pulse Resp BP Pulse Ox 97.4 F 78 16 122/51 L 96 08/03/18 17:29 08/03/18 17:29 08/03/18 17:29 08/03/18 17:29 08/03/18 17:29 Course - Vital Signs Vital signs: Temp Pulse Resp BP Pulse Ox 97.4 F 78 16 122/51 L 96 08/03/18 17:29 08/03/18 17:29 08/03/18 17:29 08/03/18 17:29 08/03/18 17:29 - Laboratory Result Diagrams: 08/03/18 18:40 08/03/18 18:40 Laboratory results interpreted by me: 08/03/18 08/03/18 08/03/18 18:40 18:40 18:40 RBC 3.21 L Hgb 10.1 L Hct 30.0 L RDW 20.1 H Lymphocytes % 12.3 L Monocytes % 13.9 H Carbon Dioxide 32 H BUN 38 H Creatinine 3.72 H Est GFR ( Amer) 14 L Est GFR (Non-Af Amer) 12 L NT-Pro-B Natriuret Pep 45228 H Doctor's Discharge - Discharge Referrals: MARISOL IRELAND MD [EMERITUS] - Follow up as needed
[2018-08-03 19:04] LABS: ABSOLUTE BASOPHILS # (AUTO) 0.1 10^3/uL (0.0-0.2); ABSOLUTE EOSINOPHILS # (AUTO) 0.3 10^3/uL (0.0-0.6); ABSOLUTE MONOCYTES (AUTO) 1.1 10^3/uL (0.1-1.4); ABSOLUTE NEUT (AUTO) 5.5 10^3/uL (1.7-8.2); BASOPHILS % (AUTO) 1.6 % (0-2); EOSINOPHILS % (AUTO) 3.8 % (0-6); HEMOGLOBIN 10.1 g/dL (12.0-15.5); LYMPHOCYTES % (AUTO) 12.3 % (13-45); MEAN CORPUSCULAR HEMOGLOBIN 31.5 pg (27.0-33.4); MEAN CORPUSCULAR HGB CONC 33.7 g/dL (32.0-36.0); MEAN CORPUSCULAR VOLUME 94 fl (80-97); MONOCYTES % (AUTO) 13.9 % (3-13); PLATELET COUNT 321 10^3/uL (150-450); RED BLOOD COUNT 3.21 10^6/uL (3.72-5.28); RED CELL DISTRIBUTION WIDTH 20.1 % (11.5-14.0); SEGMENTED NEUTROPHILS % (AUTO) 68.4 % (42-78); TOTAL CELLS COUNTED % (AUTO) 100 %; WHITE BLOOD COUNT 8.1 10^3/uL (4.0-10.5)
--- NOTE | 2018-08-03 19:18 | ER Document Report ---
ED General - General Chief Complaint: Shortness Of Breath Stated Complaint: DIFFICULTY BREATHING,SWELLING Time Seen by Provider: 08/03/18 19:18 Primary Care Provider: MARISOL IRELAND MD [EMERITUS] - Follow up as needed Mode of Arrival: Wheelchair Information source: Patient, Relative Notes: HISTORY OF PRESENT ILLNESS: Patient is a 78-year-old female with an extensive and complicated past medical history that includes chronic renal failure on Thursday/Thursday/Thursday dialysis as well as coronary disease who presents with increased swelling to the lower extremities that began 3 days ago over the weekend. Patient was dialyzed for a full session 1 day ago, was dialyzed for an extra 2-hour session today because of the swelling. She presented to her blower room attendant, Dr. Ireland, who recommended the patient come to the emergency department for evaluation. Her primary neph rologist is Dr. Churchill. Location: Lower extremities Onset: Gradual Alleviation: None Provocation: Unknown Quality: Swelling, tenderness Radiation: None Severity: Severe Timing: Constant History of CAD: Yes Associated symptoms: No fevers or chills, no redness or drainage from the legs, no injuries known REVIEW OF SYSTEMS: CONSTITUTIONAL : Denies fever or chills, no sweats. Denies recent illness. EENT: Denies eye, ear, throat, or mouth pain or symptoms. Denies nasal or sinus congestion. CARDIOVASCULAR: Denies chest pain. Positive for extensive swelling of the legs. RESPIRATORY: Denies cough, cold, or chest congestion. Denies shortness of breath or difficulty breathing. Denies wheezing. GASTROINTESTINAL: Denies abdominal pain. Denies nausea, vomiting, or diarrhea. Denies constipation. GENITOURINARY: Denies difficulty urinating, painful urination, burning, frequency, or blood in urine. MUSCULOSKELETAL: Denies neck or back pain or joint pain or swelling. SKIN: Denies rash or skin lesions. HEMATOLOGIC : Denies easy bruising or bleeding. LYMPHATIC: Denies swollen, enlarged glands. NEUROLOGICAL: Denies altered mental status or loss of consciousness. Denies headache. Denies weakness or paralysis or loss of use of either side. Denies problems with gait or speech. Denies sensory or motor loss. PSYCHIATRIC: Denies anxiety or stress or depression. All other systems reviewed and negative. PHYSICAL EXAMINATION: GENERAL: Frail-appearing, well-nourished and in no acute distress. HEAD: Atraumatic, normocephalic. No scalp deformity, depression, or crepitance. EYES: Pupils are 3 mm and equal/round/reactive to light, extraocular movements intact, sclera anicteric, conjunctiva are normal. ENT: Nares patent bilaterally, oropharynx. Moist mucous membranes. No tonsil hypertrophy. NECK: Normal range of motion, supple without lymphadenopathy. LUNGS: Breath sounds slightly diminished but present bilaterally. No wheezes, rales, or rhonchi. HEART: Regular rate and rhythm without murmurs, rubs, or gallops. 2+ peripheral pulses. Normal capillary refill. ABDOMEN: Soft, nontender, nondistended. Normoactive bowel sounds. No guarding, no rebound. No masses appreciated. BACK: Normal contour, no midline tenderness. Rectal exam deferred. GENITAL/PELVIC: Deferred. EXTREMITIES: Somewhat restricted range of motion, 4+ pitting edema of the bilateral lower extremities that is equal and symmetric, no redness or weeping/drainage. No cyanosis. NEUROLOGICAL: No focal neurological deficits. Moves all extremities spontaneously and on command. PSYCH: Normal mood, normal affect. No suicidal thoughts/ideations. No homicidal thoughts/ideations. No hallucinations. SKIN: Warm, dry, normal turgor, no rashes or lesions noted. ASSESSMENT AND PLAN: This patient is a 78-year-old female who presents with increased swelling in the lower extremities that could represent worsening heart failure versus inadequate dialysis versus cellulitis. 1. Will obtain labs, chest x-ray, cardiac enzymes, EKG, and reassess. 2. Will consult both nephrology and cardiology for recommendations. TRAVEL OUTSIDE OF THE [place] IN LAST 30 DAYS: No - Related Data Allergies/Adverse Reactions: No Known Allergies Allergy (Verified 08/03/18 17:14) Past Medical History - General Information source: Patient, Relative - Social History Smoking Status: Former Smoker Chew tobacco use (# tins/day): No Frequency of alcohol use: None Drug Abuse: None Lives with: Family Family History: Reviewed & Not Pertinent Patient has suicidal ideation: No Patient has homicidal ideation: No - Past Medical History Cardiac Medical History: Reports: Hx Coronary Artery Disease, Hx Heart Attack - no mi. 2 stents, Hx Hypercholesterolemia, Hx Hypertension Pulmonary Medical History: Reports: Hx Pneumonia Denies: Hx Asthma, Hx Bronchitis, Hx COPD EENT Medical History: Reports: None Neurological Medical History: Reports: None. Denies: Hx Cerebrovascular Accident, Hx Seizures Endocrine Medical History: Reports: Hx Diabetes Mellitus Type 2 - borderline in the past, Renal/ Medical History: Reports: Hx End Stage Renal Disease, Hx Hemodialysis, Hx Renal Insufficiency. Denies: Hx Peritoneal Dialysis - hemo-dialysis tomorrow Malignancy Medical History: Reports: None GI Medical History: Reports: None Musculoskeletal Medical History: Reports Hx Arthritis - GENERALIZED worse on her hips, cardiac clearance note given for hip replace Skin Medical History: Reports None Psychiatric Medical History: Reports: None Traumatic Medical History: Reports: None Infectious Medical History: Reports: None Past Surgical History: Reports: Hx Abdominal Surgery - infection bowel/ reversed colostomy-2004, Hx Bowel Surgery - colon ruptured-2002, Hx Cardiac Catheterization - 1992, Hx Cardiac Surgery - collapsed artery-1992, Hx Cholecystectomy, Hx Gynecologic Surgery, Hx Hysterectomy, Hx Ileostomy, Hx Kidney (Renal Surgery) - cystectomy-2002, Hx Orthopedic Surgery - total left hip arthroplasty-2000, Hx Vascular Surgery, Other - Surgery with colostomy followed by colostomy closure - Immunizations Hx Diphtheria, Pertussis, Tetanus Vaccination: Yes Hx Pneumococcal Vaccination: 04/27/18 Physical Exam - Vital signs Vitals: Temp Pulse Resp BP Pulse Ox 97.4 F 78 16 122/51 L 96 08/03/18 17:29 08/03/18 17:29 08/03/18 17:29 08/03/18 17:29 08/03/18 17:29 Course - Re-evaluation Re-evalutation: 08/03/18 20:41 Labs show negative cardiac enzymes and baseline elevated BNP. Chest x-ray shows trace edema but no large effusion or evidence of worsening heart failure. After consultation with both nephrology and cardiology, the patient is best to have outpatient aggressive dialysis beginning tomorrow. Patient will be reassessed. 08/03/18 22:10 Patient is in agreement with the plan. She will be discharged home with return precautions and follow-up. The patient as well as all of her family members report understanding and agreeing with the plan. - Vital Signs Vital signs: Temp Pulse Resp BP Pulse Ox 97.4 F 78 16 122/51 L 96 08/03/18 17:29 08/03/18 17:29 08/03/18 17:29 08/03/18 17:29 08/03/18 17:29 - Laboratory Result Diagrams: 08/03/18 18:40 08/03/18 18:40 Laboratory results interpreted by me: 08/03/18 08/03/18 08/03/18 18:40 18:40 18:40 RBC 3.21 L Hgb 10.1 L Hct 30.0 L RDW 20.1 H Lymphocytes % 12.3 L Monocytes % 13.9 H Carbon Dioxide 32 H BUN 38 H Creatinine 3.72 H Est GFR ( Amer) 14 L Est GFR (Non-Af Amer) 12 L NT-Pro-B Natriuret Pep 33309 H - Diagnostic Test Radiology reviewed: Image reviewed, Reports reviewed - EKG Interpretation by Me EKG shows normal: Sinus rhythm Rate: Normal Rhythm: NSR [place]/QRS: No: Right axis deviation, Left axis deviation, RBBB, LBBB, IVCD, LAHB/LAFB, LPHB/LPFB, Bifasicular block Voltage: No: Increased voltage, Consistant with LVH, Decreased voltage, Throughout, Limb leads P Waves: No: PAZ, LAE, Absent, AV Dissociation, Other Heart block present: No: 1st Degree, Mobitz 1, Mobitz 2, CHB (3rd degree block) When compared to previous EKG there are: No significant change - Consults Dr. Christian Time consulted: 19:35 - limited ability for inpatient dialysis, best to treat with aggressive outpatient dialysis daily if patient is stable enough for discharge Dr. Ireland Time consulted: 19:55 - okay with Nephrology plan so long as the patient is stable Discharge - Discharge Clinical Impression: Peripheral edema Chronic renal failure Qualifiers: Chronic kidney disease stage: unspecified stage Qualified Code(s): N18.9 - Chronic kidney disease, unspecified Condition: Good Disposition: HOME, SELF-CARE Instructions: Edema, Peripheral ([facility]) Additional Instructions: You have been evaluated in the Emergency Department for increased swelling in your legs. While here, you had blood work that was reassuring and it is now safe to be discharged home. Please follow-up with your dialysis center as instructed in the morning to be a dialyzed. Return to the Emergency Department if you experience worsening swelling, difficulty breathing, chest pain, or any other concerning symptoms. Referrals: MARISOL IRELAND MD [EMERITUS] - Follow up as needed Print Language: Bulgarian
[2018-08-03 19:21] LABS: ANION GAP 8 (5-19); BLOOD UREA NITROGEN 38 mg/dL (7-20); CALCIUM 9.4 mg/dL (8.4-10.2); CARBON DIOXIDE 32 mmol/L (22-30); CHLORIDE 99 mmol/L (98-107); GLUCOSE 92 mg/dL (75-110); POTASSIUM 3.9 mmol/L (3.6-5.0)
[2018-08-03 19:34] LABS: TROPONIN I 0.017 ng/mL
--- NOTE | 2018-08-03 20:29 | RADIOLOGY REPORT (SQ) ---
EXAM DESCRIPTION: [facility]: XR CHEST 2 VIEWS Views: 2 CLINICAL HISTORY: 78 years Female, hx chf, + rales COMPARISON: 07/01/2018 FINDINGS: Lungs are somewhat hyperinflated as on prior exam. There is mild interstitial prominence, but no focal acute infiltrate. No pneumothorax or pleural effusion. Sternal wires are again noted. Aortic calcifications are again noted. Heart is slightly enlarged as on prior study. Bony structures are unremarkable for age. IMPRESSION: 1. Mild pulmonary edema. No pleural effusions. 2. Previous sternotomy
[2018-08-03 22:47] VITALS: BP 128/48
--- NOTE | 2018-08-03 23:58 | EKG REPORT ---
SEVERITY:- ABNORMAL ECG - SINUS RHYTHM LVH WITH SECONDARY REPOLARIZATION ABNORMALITY : Confirmed by: Guanako Villa 03-Aug-2018 23:57:01
== END 2018-08-03 22:48 | disposition home or self-care (01) ==
LOC: ER 17:09
DX: N18.9 Chronic kidney disease, unspecified (principal); R60.9 Edema, unspecified; R06.02 Shortness of breath; Z99.2 Dependence on renal dialysis; Z90.49 Acquired absence of other specified parts of digestive tract; Z90.710 Acquired absence of both cervix and uterus
CPT/HCPCS: 36415; 71046; 80048; 83880; 84484; 85025; 87040; 93005; 93010; 99285